=== PATIENT | female | born 1990 | race Hispanic/Latino ===

== ENCOUNTER 2018-04-20 00:32 | Emergency (ER) | payer SELFPAY ==
[2018-04-20 00:50] LABS: BILIRUBIN,URINE Negative (NEGATIVE); COLOR,URINE Yellow (YELLOW); GLUCOSE, URINE (UA) Negative (NEGATIVE); KETONES,URINE Trace mg/dL (NEGATIVE); LEUKOCYTE ESTERASE ,URINE Negative (NEGATIVE); NITRATE,URINE Negative (NEGATIVE); OCCULT BLOOD,URINE Negative (NEGATIVE); PH,URINE 5.5 (5.0-8.0); PROTEIN,URINE Negative (NEGATIVE)
[2018-04-20 00:51] LABS: HCG,QUAL RESULT NEGATIVE (NEGATIVE)
[2018-04-20 00:52] LABS: APPEARANCE,URINE CLEAR (CLEAR)
[2018-04-20 00:58] LABS: AMPHET/METH SCREEN,URINE NEGATIVE (NEGATIVE); BARBITURATE SCREEN, URINE NEGATIVE (NEGATIVE); BENZODIAZEPINES SCREEN,URINE NEGATIVE (NEGATIVE); CANNABINOID SCREEN,URINE NEGATIVE (NEGATIVE); COCAINE SCREEN,URINE POSITIVE (NEGATIVE); OPIATE SCREEN,URINE NEGATIVE (NEGATIVE); PHENCYCLIDINE SCREEN,URINE NEGATIVE (NEGATIVE)
[2018-04-20] MEDS ORDERED: CEFTRIAXONE SODIUM 2 GM VIAL ONE (01:41)
[2018-04-20] MEDS ORDERED: SODIUM CHLORIDE 0.9% 1000ML 1,000 ML IV ONE (01:41)
[2018-04-20] MEDS ORDERED: IBUPROFEN 800 MG TAB ONE (01:42)
[2018-04-20] MEDS ORDERED: ACETAMINOPHEN EXTRA STRENGTH 500 MG TABLET ONE (01:42)
[2018-04-20 01:49] LABS: BASOPHILS % (AUTO) 0.5 % (0.0-5.0); EOSINOPHILS % (AUTO) 1.2 % (0.0-8.0); LYMPHOCYTES % (AUTO) 27.3 % (21.0-51.0); MEAN CORPUSCULAR HEMOGLOBIN 30.2 pg (27.0-33.0); MEAN CORPUSCULAR HGB CONC 32.8 g/dL (32.0-36.0); MEAN CORPUSCULAR VOLUME 91.9 fL (79-99); MONOCYTES % (AUTO) 15.3 % (3.0-13.0); NEUTROPHILS % (AUTO) 55.7 % (40.0-77.0); NUCLEATED RED BLOOD CELLS 0.1 % (0.0-0.19); PLATELET COUNT (AUTO) 201 K/uL (130-400); RED CELL DISTRIBUTION WIDTH 14.5 % (11.0-15.5)
[2018-04-20 01:54] LABS: CARBON DIOXIDE 28 mmol/L (21-32); CHLORIDE 101 mmol/L (101-111); CREATININE 1.1 mg/dL (0.5-1.5); GLOMERULAR FILTR. RATE CALC 63 mL/min (>60); GLUCOSE,RANDOM 90 mg/dL (70-105); SODIUM SERUM 138 mmol/L (136-145); UREA NITROGEN, BLOOD 8 mg/dL (7-18)
[2018-04-20 02:00] LABS: RAPID GROUP A STREP NEGATIVE (NEGATIVE)
[2018-04-20 02:03] LABS: INR 0.93 (0.85-1.15); PARTIAL THROMBOPLASTIN TIME 22.4 SEC (26.3-35.5); PROTHROMBIN TIME 9.8 SEC (9.6-11.6)
[2018-04-20 02:09] LABS: ALANINE AMINOTRANSFERASE 288 U/L (12-78); ALBUMIN 3.4 g/dL (3.5-5.0); ASPARTATE AMINOTRANSFERASE 221 U/L (10-37); BILIRUBIN,TOTAL 0.2 mg/dL (0.2-1.0); CREATINE KINASE MB 0.8 ng/mL (0.5-3.6); CREATINE KINASE, TOTAL 145 U/L (21-232); MYOGLOBIN 41 ng/mL (10-92); TOTAL PROTEIN, SERUM 7.7 g/dL (6.0-8.3); TROPONIN I < 0.04 ng/mL (0.00-0.06)
== END 2018-04-20 02:44 | disposition home or self-care (01) ==
LOC: EDH 00:32
DX: A75.9 Typhus fever, unspecified (principal); F14.10 Cocaine abuse, uncomplicated; R79.1 Abnormal coagulation profile
CPT/HCPCS: 36415; 71045; 80053; 80305; 81003; 81025; 82550; 82553; 83605; 83874; 84484; 85025; 85610; 85730; 87040 ×2; 87088; 87804 ×2; 87880; 96374; 99285; J0696; J7030

== ENCOUNTER 2019-10-23 16:17 | Emergency (ER) | payer SELFPAY ==
[2019-10-23] MEDS ORDERED: FAMOTIDINE 20MG TAB 20 MG TAB ONE (17:05)
[2019-10-23] MEDS ORDERED: DEXAMETHASONE SOD PHOSPHATE 10MG/ML 1ML VIAL ONE (17:05)
[2019-10-23] MEDS ORDERED: DIPHENHYDRAMINE HCL 25 MG CAPSULE ONE (17:06)
== END 2019-10-23 17:27 | disposition home or self-care (01) ==
LOC: EDH 16:17
DX: L23.9 Allergic contact dermatitis, unspecified cause (principal); Z72.0 Tobacco use
CPT/HCPCS: 96372; 99283; J1100; Q0163

== ENCOUNTER 2021-11-04 20:20 | Emergency (ER) | payer OTHER ==
[~2021-11-04] VITALS: Ht 162.6 cm; Wt 95.3 kg
[2021-11-04 20:42] LABS: BASOPHILS % (AUTO) 0.2 % (0.0-5.0); EOSINOPHILS % (AUTO) 1.7 % (0.0-8.0); HEMATOCRIT 47.6 % (36-48); LYMPHOCYTES % (AUTO) 28.9 % (21.0-51.0); MEAN CORPUSCULAR HEMOGLOBIN 29.5 pg (27.0-33.0); MEAN CORPUSCULAR HGB CONC 32.4 g/dL (32.0-36.0); MEAN CORPUSCULAR VOLUME 91.2 fL (79-99); MONOCYTES % (AUTO) 7.7 % (3.0-13.0); NEUTROPHILS % (AUTO) 61.2 % (40.0-77.0); PLATELET COUNT (AUTO) 334 K/uL (130-400); RED BLOOD CELL COUNT(AUTO) 5.22 MIL/uL (4.00-5.50); RED CELL DISTRIBUTION WIDTH 13.7 % (11.0-15.5); WHITE BLOOD COUNT (AUTO) 13.2 K/uL (4.8-10.8)
[2021-11-04] MEDS ORDERED: ONDANSETRON 4MG INJ ONE (20:48)
[2021-11-04] MEDS ORDERED: FAMOTIDINE 20MG VIAL IV ONE ×2 (20:48→21:00)
[2021-11-04] MEDS ORDERED: DiphenhydrAMINE HCL 50 MG/ML VIAL ONE (20:48)
[2021-11-04] MEDS ORDERED: METOCLOPRAMIDE 10 MG/2 ML VIAL ONE (20:48)
[2021-11-04] MEDS ORDERED: PANTOPRAZOLE 40 MG/VIAL ONE (20:48)
[2021-11-04] MEDS ORDERED: 0.9%NACL 1000ML 1,000 ML IV ONE ×3 (20:49→22:00)
[2021-11-04] MEDS ORDERED: PANTOPRAZOLE 40 MG/VIAL IVP ONE (21:00)
[2021-11-04] MEDS ORDERED: METOCLOPRAMIDE 10 MG/2 ML VIAL IVP ONE (21:00)
[2021-11-04] MEDS ORDERED: ONDANSETRON 4MG INJ IVP ONE (21:00)
[2021-11-04] MEDS ORDERED: DiphenhydrAMINE HCL 50 MG/ML VIAL IV ONE ×2 (21:00→22:30)
[2021-11-04 21:05] LABS: ALBUMIN 3.9 g/dL (3.5-5.0); BILIRUBIN,TOTAL 0.3 mg/dL (0.2-1.0); CREATININE 0.9 mg/dL (0.5-1.5); TOTAL PROTEIN, SERUM 9.4 g/dL (6.0-8.3)
[2021-11-04 22:03] LABS: APPEARANCE,URINE Cloudy (CLEAR); BILIRUBIN,URINE Negative (NEGATIVE); COLOR,URINE Dark Yellow (YELLOW); GLUCOSE, URINE (UA) Negative (NEGATIVE); KETONES,URINE Trace mg/dL (NEGATIVE); LEUKOCYTE ESTERASE ,URINE Negative (NEGATIVE); NITRATE,URINE Negative (NEGATIVE); OCCULT BLOOD,URINE Negative (NEGATIVE); PH,URINE 5.5 (5.0-8.0); PROTEIN,URINE Trace mg/dL (NEGATIVE)
[2021-11-04 22:10] LABS: AMPHET/METH SCREEN,URINE NEGATIVE (NEGATIVE); BARBITURATE SCREEN, URINE NEGATIVE (NEGATIVE); BENZODIAZEPINES SCREEN,URINE NEGATIVE (NEGATIVE); CANNABINOID SCREEN,URINE POSITIVE (NEGATIVE); COCAINE SCREEN,URINE POSITIVE (NEGATIVE); OPIATE SCREEN,URINE NEGATIVE (NEGATIVE); PHENCYCLIDINE SCREEN,URINE NEGATIVE (NEGATIVE)
[2021-11-04 22:11] LABS: BACTERIA,URINE Few /HPF (None Seen); MUCUS,URINE Moderate LPF (None Seen); RBC,URINE 0-1 /HPF (0-1); SQUAMOUS EPITHELIAL CELL,UR Moderate /HPF (0-2)
[2021-11-04] MEDS ORDERED: ONDA4TAB10 PO (23:16)
[2021-11-04] MEDS ORDERED: METO-296 PO (23:16)
[2021-11-04] MEDS ORDERED: PANT40TA PO (23:16)
[2021-11-04] MEDS ORDERED: KETOROLAC 30MG VIAL (30MG/ML) IV ONE (23:30)
[2021-11-05 00:11] VITALS: BP 132/74
== END 2021-11-05 00:42 | disposition home or self-care (01) ==
LOC: EDH 20:20
DX: F43.9 Reaction to severe stress, unspecified (principal); E86.9 Volume depletion, unspecified; R10.13 Epigastric pain
CPT/HCPCS: 36415; 71045; 80053; 80305; 81001; 83690; 84484; 85025; 93005; 96361; 96374; 96375; 99285; C9113; J1200 ×2; J1885; J2405; J2765; J3490; J7030

== ENCOUNTER 2022-02-03 12:22 | Emergency (ER) | payer OTHER ==
[~2022-02-03] VITALS: Ht 162.6 cm; Wt 97.5 kg
[~2022-02-03 12:22] MED LIST: METO-296 PO; ONDA4TAB10 PO; PANT40TA PO
[2022-02-03 12:45] LABS: BASOPHILS % (AUTO) 0.3 % (0.0-5.0); EOSINOPHILS % (AUTO) 2.6 % (0.0-8.0); HEMATOCRIT 40.9 % (36-48); LYMPHOCYTES % (AUTO) 34.5 % (21.0-51.0); MEAN CORPUSCULAR HEMOGLOBIN 28.7 pg (27.0-33.0); MEAN CORPUSCULAR VOLUME 86.8 fL (79-99); MONOCYTES % (AUTO) 13.8 % (3.0-13.0); NEUTROPHILS % (AUTO) 48.5 % (40.0-77.0); PLATELET COUNT (AUTO) 294 K/uL (130-400); RED BLOOD CELL COUNT(AUTO) 4.71 MIL/uL (4.00-5.50); RED CELL DISTRIBUTION WIDTH 14.1 % (11.0-15.5); WHITE BLOOD COUNT (AUTO) 7.4 K/uL (4.8-10.8)
[2022-02-03 12:53] LABS: CREATININE 0.8 mg/dL (0.5-1.5); POTASSIUM 3.7 mmol/L (3.5-5.1)
[2022-02-03 12:58] LABS: ALBUMIN 3.5 g/dL (3.5-5.0); BILIRUBIN,TOTAL 0.3 mg/dL (0.2-1.0); TOTAL PROTEIN, SERUM 8.1 g/dL (6.0-8.3)
[2022-02-03] MEDS ORDERED: LORAZEPAM 2 MG/ML 1 ML VIAL IVP ONE (13:00)
[2022-02-03 13:44] LABS: APPEARANCE,URINE CLEAR (CLEAR); BILIRUBIN,URINE NEGATIVE (NEGATIVE); COLOR,URINE YELLOW (YELLOW); GLUCOSE, URINE (UA) NEGATIVE (NEGATIVE); KETONES,URINE NEGATIVE (NEGATIVE); LEUKOCYTE ESTERASE ,URINE NEGATIVE (NEGATIVE); NITRATE,URINE NEGATIVE (NEGATIVE); OCCULT BLOOD,URINE NEGATIVE (NEGATIVE); PROTEIN,URINE NEGATIVE (NEGATIVE); UROBILINOGEN,URINE 0.2 mg/dL (0.2-1.0)
[2022-02-03 13:45] LABS: HCG,QUAL RESULT NEGATIVE (NEGATIVE)
[2022-02-03 14:16] VITALS: BP 111/61
== END 2022-02-03 14:45 | disposition home or self-care (01) ==
LOC: EDH 12:22
DX: R07.89 Other chest pain (principal); F41.9 Anxiety disorder, unspecified; Z79.899 Other long term (current) drug therapy
CPT/HCPCS: 36415; 71045; 80053; 81003; 81025; 84484; 85025; 93005; 96374; 99284; J2060

== ENCOUNTER 2023-10-01 18:03 | Emergency (ER) | payer OTHER ==
[~2023-10-01] VITALS: Ht 162.6 cm; Wt 99.8 kg
[2023-10-01 18:25] VITALS: BP 156/101; PULSE 95; RESP 21
[2023-10-01 18:58] LABS: BASOPHILS # (AUTO) 0.04 K/uL (0.00-0.20); BASOPHILS % (AUTO) 0.4 % (0.0-5.0); EOSINOPHILS # (AUTO) 0.07 K/uL (0.00-0.70); EOSINOPHILS % (AUTO) 0.7 % (0.0-8.0); HEMATOCRIT 41.6 % (36-48); IMMATURE GRANULOCYTE ABSOLUTE 0.04 K/uL (0-1); LYMPHOCYTES # (AUTO) 1.5 K/uL (1.0-4.8); MEAN CORPUSCULAR HEMOGLOBIN 30.5 pg (27.0-33.0); MEAN CORPUSCULAR HGB CONC 33.9 g/dL (32.0-36.0); MONOCYTES # (AUTO) 0.9 K/uL (0.1-1.0); MONOCYTES % (AUTO) 8.9 % (3.0-13.0); NEUTROPHILS % (AUTO) 75.6 % (40.0-77.0); PLATELET COUNT (AUTO) 278 K/uL (130-400); RED BLOOD CELL COUNT(AUTO) 4.62 MIL/uL (4.00-5.50); RED CELL DISTRIBUTION WIDTH 13.6 % (11.0-15.5); WHITE BLOOD COUNT (AUTO) 10.5 K/uL (4.8-10.8)
[2023-10-01 19:11] LABS: CREATININE 0.9 mg/dL (0.5-1.5); POTASSIUM 3.7 mmol/L (3.5-5.1)
[2023-10-01 19:18] LABS: ALBUMIN 3.4 g/dL (3.5-5.0); BILIRUBIN,TOTAL 0.3 mg/dL (0.2-1.0); TOTAL PROTEIN, SERUM 8.5 g/dL (6.0-8.3)
[2023-10-01 19:21] LABS: B-TYPE NATRIURETIC PEPTIDE 7 pg/mL (0-100)
[2023-10-01 19:40] LABS: INR 0.94 (0.85-1.15); PROTHROMBIN TIME 10.9 SEC (9.6-11.6)
[2023-10-01 23:38] LABS: APPEARANCE,URINE CLEAR (CLEAR); BILIRUBIN,URINE NEGATIVE (NEGATIVE); COLOR,URINE LIGHT-YELLOW (YELLOW); GLUCOSE, URINE (UA) NEGATIVE (NEGATIVE); KETONES,URINE NEGATIVE (NEGATIVE); LEUKOCYTE ESTERASE ,URINE NEGATIVE Leu/uL (NEGATIVE); NITRATE,URINE NEGATIVE (NEGATIVE); OCCULT BLOOD,URINE NEGATIVE (NEGATIVE); PH,URINE 6.5 (5.0-8.0); PROTEIN,URINE 20 mg/dL (NEGATIVE); UROBILINOGEN,URINE 0.2 mg/dL (0.2-1.0)
[2023-10-01 23:48] LABS: HCG,QUALITATIVE URINE NEGATIVE (NEGATIVE)
[2023-10-01 23:49] LABS: ADD UA MICROSCOPIC YES
[2023-10-01 23:51] LABS: MUCUS,URINE FEW LPF (None Seen); RBC,URINE 0-1 /HPF (0-1); SQUAMOUS EPITHELIAL CELL,UR FEW /HPF (0-2)
== END 2023-10-02 00:07 | disposition home or self-care (01) ==
LOC: EDH 18:03
DX: M62.838 Other muscle spasm (principal); F41.9 Anxiety disorder, unspecified; R07.89 Other chest pain; Z79.899 Other long term (current) drug therapy
CPT/HCPCS: 36415; 71045; 80053; 81001; 81025; 83880; 84484; 85025; 85610; 93005

== ENCOUNTER 2025-06-15 17:34 | Inpatient (IN) | payer BC ==
[~2025-06-15] VITALS: Ht 152.4 cm; Wt 119.3 kg
[2025-06-15] VITALS (10 sets, daily range): BP systolic 99–115; BP diastolic 65–87; PULSE 76–145; RESP 25–27; TEMP 99.2; O2SAT 93–100
[~2025-06-15 17:34] MED LIST changes: +ONDA-243 PO; -ONDA4TAB10 PO
[2025-06-15] MEDS: MIDAZOLAM 50MG-0.9% NS 50ML 50 ML IV ONE (17:46)
[2025-06-15] MEDS: 0.9%NACL 1000ML 1,000 ML IV ONE (18:00)
[2025-06-15 18:08] LABS: INR 0.99 (0.85-1.15)
--- NOTE | 2025-06-15 18:08 | EKG ---
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1990 Requested By: BETHANY LIAO Order Number: [id number] Reading MD: Caroline Guzman Measurements Intervals [place] Rate: 154 P: 166 [place]: 60 QRS: -76 QRSD: 131 T: 41 QT: 331 QTc: 529 Interpretive Statements Sinus or ectopic atrial tachycardia RBBB and LAFB ST elevation suggests acute pericarditis Compared to ECG 10/01/2023 18:50:17 Left anterior fascicular block now present Right bundle-branch block now present ST (T wave) deviation now present Sinus rhythm no longer present Electronically Signed On 06-16-2025 12:29:03 MIRROR SPECIALIST by Caroline Guzman Please click the below link to view image of tracing.
[2025-06-15 18:19] LABS: CREATINE KINASE, TOTAL 308.0 U/L (21-232); CREATININE 1.3 mg/dL (0.5-1.0); GLOMERULAR FILTR. RATE CALC 55.0 mL/min (>90); GLUCOSE,RANDOM 229.0 mg/dL (70-105); LDL DIRECT 90.0 mg/dL (0-99); SODIUM SERUM 141.0 mmol/L (136-145); UREA NITROGEN, BLOOD 6.0 mg/dL (7-18)
[2025-06-15 18:22] LABS: APPEARANCE,URINE CLEAR (CLEAR); GLUCOSE, URINE (UA) NEGATIVE (NEGATIVE); LEUKOCYTE ESTERASE ,URINE NEGATIVE Leu/uL (NEGATIVE); NITRATE,URINE NEGATIVE (NEGATIVE); OCCULT BLOOD,URINE NEGATIVE (NEGATIVE)
[2025-06-15 18:30] LABS: ADD UA MICROSCOPIC NO
--- NOTE | 2025-06-15 18:32 | ERN ---
General Chief Complaint: Overdose Stated Complaint: OVERDOSE Time Seen by MD: 17:46 Source: patient History of Present Illness Initial Comments PATIENT IS A 34-YEAR-OLD FEMALE BROUGHT IN BY NEIGHBORS DUE TO ALTERED MENTAL STATUS. PER NEIGHBOR'S PATIENT STARTED ACTING BIZARRE STARTED RUNNING AROUND THE NEIGHBORHOOD AND WAS BROUGHT IN FOR FURTHER EVALUATION. UPON EVALUATION IN VEHICLE PATIENT WAS UNABLE TO RESPOND TO QUESTIONS WAS COMBATIVE. Allergies: Coded Allergies: No Known Drug Allergies (Unverified Allergy, Unknown, 10/23/19) Home Meds Active Scripts Metoclopramide HCl (Reglan) 10 Mg Tablet, 10 MG PO TIDP, #20 TAB 0 Refills Prov:JADON ALLEN MD 11/04/21 Ondansetron (Ondansetron Odt) 4 Mg Tab.rapdis, 4 MG PO Q6HPRN, #20 TAB 0 Refills Prov:JADON ALLEN MD 11/04/21 Pantoprazole Sodium (Protonix) 40 Mg Tablet.dr, 40 MG PO DAILY, #10 TAB 0 Refills Prov:JADON ALLEN MD 11/04/21 Past Medical History Past Medical History: Diabetes-Type II Past Surgical History: Unknown Social History Social History: Drugs, ETOH, Lives with family ROS Dictation UNABLE TO BE PERFORMED DUE TO PATIENT'S CURRENT STATE Physical Exam Physical Exam Dictation VITAL SIGNS: REVIEWED. GENERAL APPEARANCE: DISORIENTED, ACUTE DISTRESS, OBESE. HEAD AND FACE: NON-TRAUMATIC. EYES: PERRL, PINK CONJUNCTIVAS, EYELID NO TRAUMA, ANTERIOR CHAMBER CLEAR. EARS: PUPILS DILATED NONREACTIVE NOSE: NO DISCHARGE, NO BLEEDING. OROPHARYNX: MOUTH NORMAL, TEETH NO CARIES, TONGUE PINK. PHARYNX CLEAR, NO ERYTHEMA. TONSILS NO EXUDATES, NO ABSCESSES NOTED. MUCOUS MEMBRANE MOIST. NECK: SUPPLE, NON-TENDER, NO THYROMEGALY, NO MASSES, NO JVD, NO BRUITS. BREAST: DEFERRED. CHEST: NO TENDERNESS, NO CREPITUS, NO PARADOXICAL MOVEMENT, NO RETRACTIONS. LUNGS: CLEAR, WELL-VENTILATED, SYMMETRIC, NO RALES, NO WHEEZING, NO RHONCHI, NO STRIDOR, GOOD BREATH SOUNDS BILATERALLY. HEART: REGULAR RATE, REGULAR RHYTHM, NO MURMUR, NO GALLOPS. VASCULAR: NO PERIPHERAL EDEMA. ABDOMEN: SOFT, POSITIVE BOWEL SOUNDS, NONDISTENDED, NO GUARDING, NONTENDER, NO REBOUND, NO MASSES NO HEPATOMEGALY, NO SPLENOMEGALY, NO DURAN'S SIGN, NO HERNIAS. RECTAL: DEFERRED. GENITAL: DEFERRED. NEUROLOGICAL: GCS OF SEVEN MUSCULOSKELETAL: NECK NONTENDER, FULL RANGE OF MOTION, BACK NONTENDER, FULL RANGE OF MOTION. EXTREMITIES: NONTENDER, FULL RANGE OF MOTION. SKIN: COLOR PINK, DRY, NO TURGOR, NO RASH, NO LACERATIONS, NO ABRASIONS, NO CONTUSIONS. LYMPHATICS: DEFERRED. Results Laboratory and Microbiology Lab and Micro Result Laboratory Tests Test 06/15/25 17:49 06/15/25 18:14 White Blood Count 16.2 K/uL (4.8-10.8) H Red Blood Count 5.16 MIL/uL (4.00-5.50) Hemoglobin 15.4 g/dL (12.0-16.0) Hematocrit 49.8 % (36-48) H Mean Corpuscular Volume 96.5 fL (79-99) Mean Corpuscular Hemoglobin 29.8 pg (27.0-33.0) Mean Corpuscular Hemoglobin Concent 30.9 g/dL (32.0-36.0) L Red Cell Distribution Width 14.3 % (11.0-15.5) Platelet Count 412 K/uL (130-400) H Mean Platelet Volume 10.3 fL (7.5-10.5) Immature Granulocyte % (Auto) 5.1 % (0-1) H Neutrophils (%) (Auto) 37.8 % (40.0-77.0) L Lymphocytes (%) (Auto) 51.1 % (21.0-51.0) H Monocytes (%) (Auto) 4.7 % (3.0-13.0) Eosinophils (%) (Auto) 0.8 % (0.0-8.0) Basophils (%) (Auto) 0.5 % (0.0-5.0) Neutrophils # (Auto) 6.1 K/uL (1.8-7.7) Lymphocytes # (Auto) 8.3 K/uL (1.0-4.8) H Monocytes # (Auto) 0.8 K/uL (0.1-1.0) Eosinophils # (Auto) 0.13 K/uL (0.00-0.70) Basophils # (Auto) 0.08 K/uL (0.00-0.20) Absolute Immature Granulocyte (auto 0.82 K/uL (0-1) Nucleated Red Blood Cells 0.1 % (0.0-0.19) Prothrombin Time 10.5 SEC (9.6-11.6) Prothromb Time International Ratio 0.99 (0.85-1.15) Activated Partial Thromboplast Time 21.8 SEC (26.3-35.5) L Sodium Level 141 mmol/L (136-145) Potassium Level 5.1 mmol/L (3.5-5.1) Chloride Level 100 mmol/L (101-111) L Carbon Dioxide Level 11 mmol/L (21-32) L Blood Urea Nitrogen 6 mg/dL (7-18) L Creatinine 1.3 mg/dL (0.5-1.0) H Glomerular Filtration Rate Calc 55 mL/min (>90) Random Glucose 229 mg/dL (70-105) H Total Calcium 9.3 mg/dL (8.5-10.1) Magnesium Level 2.40 mg/dL (1.80-2.40) Total Creatine Kinase 308 U/L (21-232) #H Troponin I High Sensitivity 50 ng/L (4-50) Triglycerides Level 232 mg/dL (30-200) H Cholesterol Level 169 mg/dL (<200) LDL Cholesterol 90 mg/dL (0-99) HDL Cholesterol 48 mg/dL (35-85) Urine Color LIGHT-YELLOW (YELLOW) Urine Appearance CLEAR (CLEAR) Urine pH 6.0 (5.0-8.0) Urine Specific [place] 1.012 (1.001-1.031) Urine Protein NEGATIVE mg/dL (NEGATIVE) Urine Glucose (UA) NEGATIVE mg/dL (NEGATIVE) Urine Ketones NEGATIVE mg/dL (NEGATIVE) Urine Occult Blood NEGATIVE (NEGATIVE) Urine Nitrate NEGATIVE (NEGATIVE) Urine Bilirubin NEGATIVE mg/dL (NEGATIVE) Urine Urobilinogen 0.2 mg/dL (0.2-1.0) Urine Leukocyte Esterase NEGATIVE Francia/uL Urine Opiates Screen NEGATIVE (NEGATIVE) Urine Barbiturates Screen NEGATIVE (NEGATIVE) Urine Phencyclidine Screen NEGATIVE (NEGATIVE) Urine Amphetamines Screen NEGATIVE (NEGATIVE) Urine Benzodiazepines Screen NEGATIVE (NEGATIVE) Urine Cocaine Screen POSITIVE (NEGATIVE) H Urine Marijuana (THC) Screen NEGATIVE (NEGATIVE) Labs Reviewed?: Yes EKG/XRAY/US/CT/MRI EKG Comment 02/12/2025 TIME 6:01 P.M. VENTRICULAR RATE [address] WAVE ELEVATION MDM MDM: DIFFERENTIAL DIAGNOSIS: ALTERED MENTAL STATUS RATIONALE: TESTS CONSIDERED AND ORDERED SECONDARY TO SHARED DECISION MAKING INCLUDE: PREVIOUS OUTSIDE RECORDS REVIEWED: OLD ER VISITS. RISK OF COMPLICATION AND/OR MORBIDITY OR MORTALITY OF PATIENT MANAGEMENT: NONE MEDICATIONS-PER MEDICATION RECONCILIATION NEED FOR HOSPITALIZATION: PATIENT DOES NOT MEET CRITERIA FOR HOSPITALIZATION. NEED FOR EMERGENCY MAJOR/MINOR SURGERY: NO THERE ARE NO SOCIAL CONCERNS WITH THIS PATIENT. PRESCRIPTION DRUG MANAGEMENT PRESCRIPTIONS WILL INCLUDE SYMPTOMATIC CARE PATIENT'S PRIOR EXTERNAL MEDICAL RECORDS FROM OTHER ER VISITS WERE REVIEWED BY ME INDICATED. PRIOR TESTING AND RESULTS FROM PREVIOUS VISITS WERE REVIEWED. PRIOR TESTS WERE TAKEN INTO ACCOUNT WITH MEDICAL DECISION MAKING AND RESOURCE UTILIZATION, INDEPENDENT HISTORIAN/HISTORIANS WERE USED TO OBTAIN COMPLETE MEDICAL HISTORY. I INDEPENDENTLY INTERPRETED THE TEST THAT WERE PERFORMED, RESULTS WERE REVIEWED BY ME AND CONSIDERED FINDINGS ON RADIOLOGY IF ORDERED. MEDICAL MANAGEMENT AND EXAMINATION INTERPRETATION DISCUSSIONS WERE HAD BY ME WITH OTHER QUALIFIED HEALTHCARE PROFESSIONALS INDICATED FOR THE PATIENT'S CARE. ED Course Orders Procedure Category Date Status Time Chest 1vw RAD 06/15/25 Resulted 17:42 Midazolam 50mg-0.9% PHA 06/15/25 Complete Ns 50ml (Midazolam 5 17:46 Prothrombin Time With LAB 06/15/25 Complete INR 17:46 Lipid Panel LAB 06/15/25 Complete 17:46 12 Lead Ekg Tracing- EKG 06/15/25 Complete Technical 17:46 0.9%Nacl 1000ml (Ns PHA 06/15/25 Complete 1000ml) 18:00 Magnesium LAB 06/15/25 Complete 17:46 Creatine Kinase, Total LAB 06/15/25 Complete 17:46 Troponin I High LAB 06/15/25 Complete Sensitivity 17:46 Urinalysis Profile LAB 06/15/25 Complete 17:46 Partial LAB 06/15/25 Complete Thromboplastin Time 17:46 Basic Metabolic Panel LAB 06/15/25 Complete 17:46 Ct Head/Brain W/O CT 06/15/25 Resulted Contrast 17:46 Ketamine 50mg/Ml PHA 06/15/25 Complete Syringe (Ketamine 18:00 Midazolam 50mg-0.9% PHA 06/15/25 In Process Ns 50ml (Midazolam 5 18:00 Fentanyl 1000mcg+Ns PHA 06/15/25 In Process 100ml (Fentanyl 1000 18:00 Cbc With Differential LAB 06/15/25 In Process 17:49 Propofol 1000 Mg/100 PHA 06/15/25 Complete Ml (Diprivan 1000mg 18:23 Drug Screen Urine LAB 06/15/25 Complete 18:34 Norepinephrin 4mg/Ns PHA 06/15/25 Complete 250ml (Levophed 4mg 18:41 Nurse Driven Juarez TEVIN 06/15/25 In Process Removal Pro 18:49 Ngt To Low CPOE 06/15/25 Transmitted Intermittent Suctn 18:49 Norepinephrin 4mg/Ns PHA 06/15/25 In Process 250ml (Levophed 4mg 19:00 Propofol 1000 Mg/100 PHA 06/15/25 In Process Ml (Diprivan 1000mg 19:00 Pathology Request LAB 06/15/25 In Process Tissue 19:09 Admit Orders ADM 06/15/25 Transmitted 19:44 Current Medications Medications (Trade) Dose Ordered Sig/Sandra Route PRN Reason Start Time Stop Time Status Last Admin Dose Admin Fentanyl Citrate 100 ml @ 0 mls/hr PROTOCOL IV 06/15/25 18:00 06/22/25 17:59 Ketamine HCl (ketaMINE 50MG/ ML SYRINGE) 100 mg ONCE ONCE IM 06/15/25 18:00 06/15/25 18:01 DC Midazolam HCl 50 ml @ 0 mls/hr PROTOCOL IV 06/15/25 18:00 06/22/25 17:59 Midazolam HCl 50 ml @ As Directed STK-MED ONCE IV 06/15/25 17:46 06/15/25 17:46 DC Norepinephrine 250 ml @ As Directed STK-MED ONCE IV 06/15/25 18:41 06/15/25 18:41 DC Norepinephrine 250 ml @ 0 mls/hr PROTOCOL IV 06/15/25 19:00 07/15/25 18:59 Propofol 100 ml @ As Directed STK-MED ONCE IV 06/15/25 18:23 06/15/25 18:23 DC Propofol 100 ml @ 0 mls/hr PROTOCOL IV 06/15/25 19:00 07/15/25 18:59 Sodium Chloride 1,000 ml @ 0 mls/hr ONCE ONCE IV 06/15/25 18:00 06/15/25 18:01 DC Vital Signs Date Time Temp Pulse Resp B/P (MAP) Pulse Ox O2 Delivery O2 Flow Rate FiO2 06/15/25 17:48 76 100 Procedure Dictation THE PROCEDURE WAS EMERGENT, THE PATIENT WAS UNABLE TO PROVIDE CONSENT, AND A DESIGNEE WAS NOT IMMEDIATELY AVAILABLE. PROCEDURE SUMMARY: A TIME OUT WAS PERFORMED. MY HANDS WERE WASHED IMMEDIATELY PRIOR TO THE PROCEDURE. I WORE A SURGICAL CAP, MASK WITH PROTECTIVE EYEWEAR, GOWN AND GLOVES THROUGHOUT THE PROCEDURE. THE PATIENT WAS PLACED ON A M48 M60 ARMOR CREWMAN INCLUDING CONTINUOUS PULSE OXIMETRY. RAPID SEQUENCE INTUBATION WAS CONDUCTED. THE PATIENT RECEIVED 100 MG OF KETAMINE FOR INDUCTION AND 50 MG OF ALAN FOR ADEQUATE PARALYSIS. CRICOID PRESSURE WAS MAINTAINED FROM TIME INDUCTION AGENT WAS GIVEN TO TIME OF CUFF BALLOON INFLATION. USING A GLIDESCOPE AND A SIZE [7.5 ] ENDOTRACHEAL TUBE WITH STYLET, THE PATIENT WAS INTUBATED ON THE 1 ATTEMPT. THE STYLET WAS REMOVED AND CUFF BALLOON WAS INFLATED. APPROPRIATE ENDOTRACHEAL TUBE POSITION WAS CONFIRMED BY DIRECT VISUALIZATION OF VOCAL CORD PASSAGE, FOGGING OF THE TUBE, CO2 COLORMETRIC INDICATOR AND SYMMETRIC BREATH SOUNDS. THE TUBE WAS SECURED AT [23 ] CM AT THE LIPS. POST INTUBATION CHEST X-RAY IS PENDING AT THIS TIME. DX & DISP Disposition: Inpatient Departure Impression: Primary Impression: Endotracheally intubated Additional Impression: Altered mental status Condition: Stable Referrals: SELF,REFERRAL (PCP) BETHANY LIAO MD Jun 15, 2025 18:31 JULIÁN MCKEON MD Jun 15, 2025 19:53
[2025-06-15 18:40] LABS: IMMATURE GRANULOCYTE ABSOLUTE 0.82 K/uL (0-1); NUCLEATED RED BLOOD CELLS 0.1 % (0.0-0.19); PLATELET COUNT (AUTO) 412 K/uL (130-400); RED BLOOD CELL COUNT(AUTO) 5.16 MIL/uL (4.00-5.50); RED CELL DISTRIBUTION WIDTH 14.3 % (11.0-15.5); WHITE BLOOD COUNT (AUTO) 16.2 K/uL (4.8-10.8)
[2025-06-15] MEDS: NOREPINEPHRIN 4MG/NS 250ML 250 ML IV ONE (18:41)
[2025-06-15 18:49] LABS: AMPHET/METH SCREEN,URINE NEGATIVE (NEGATIVE); BARBITURATE SCREEN, URINE NEGATIVE (NEGATIVE); CANNABINOID SCREEN,URINE NEGATIVE (NEGATIVE); COCAINE SCREEN,URINE POSITIVE (NEGATIVE)
--- NOTE | 2025-06-15 19:07 | HMCIMG ---
EXAM: CR Chest, 2 View. CLINICAL HISTORY: INTUBATION COMPARISON: None provided. FINDINGS: Endotracheal tube terminates 1.4 cm above the kay and may be retracted by 1.0 cm. Enteric tube terminates within the stomach. Multifocal airspace disease throughout the left lung may reflect an infectious and/or inflammatory process. Small left effusion. No pneumothorax. Mild cardiomegaly and mild central pulmonary vascular congestion. IMPRESSION: 1. Endotracheal tube tip 1.4 cm above kay, consider retracting 1.0 cm. 2. Multifocal left lung airspace disease, possibly infectious or inflammatory. 3. Small left pleural effusion. 4. Mild cardiomegaly with mild central pulmonary vascular congestion. /[place]
--- NOTE | 2025-06-15 19:30 | NUR ---
PATIENT TAKEN TO CT BY ED RN, ENDOSCOPIC TECHNICIAN, RT.
--- NOTE | 2025-06-15 19:43 | NUR ---
RETURNED FROM CT.
--- NOTE | 2025-06-15 19:46 | HP ---
History of Present Illness Reason for Visit: Altered mental status History of Present Illness Ms. Bridges is a 34-year-old female that was seen and examined today on 06/15/2025. Patient is unable to provide any medical history. Patient's mother, Jill Dyson is at bedside and able to provide past medical history however she is not aware of the current events what led to patient's altered mental status today. According to emergency room physician note: PATIENT IS A 34-YEAR-OLD FEMALE BROUGHT IN BY NEIGHBORS DUE TO ALTERED MENTAL STATUS. PER NEIGHBOR'S PATIENT STARTED ACTING BIZARRE STARTED RUNNING AROUND THE NEIGHBORHOOD AND WAS BROUGHT IN FOR FURTHER EVALUATION. UPON EVALUATION IN VEHICLE PATIENT WAS UNABLE TO RESPOND TO QUESTIONS WAS COMBATI Today in the emergency department WBCs 16.2, glucose 229 mg/dL, creatinine 1.3, urinalysis unremarkable, urine toxicology positive for cocaine, chest x-ray shows left lung airway disease, left pleural effusion, CT of the head is unremarkable. Additionally patient presented with a temperature of 102.2, heart rate 145, respirations 25, now identified source of infection being the lungs patient met clinical sepsis criteria. Patient also had hypotension requiring vasopressor support with Levophed therefore meeting septic shock criteria. Past Medical History ADDITIONAL PAST MEDICAL HISTORY: [Diabetes mellitius type2, hypertension] SOCIAL HISTORY: [Patient does smoke cigarettes but mother does not know how much, patient does drink alcohol at least every weekend, patient at least consumes marijuana and possibly other drugs. Patient is typically independent of all her ADLs. Patient lives with the [facility] Cav[facility]os. ] SURGICAL HISTORY: [Negative surgeries] Review of Systems General: No Fever, No Chills, No Night Sweats, No Fatigue, No Malaise, No Appetite, No Other HEENT: No Head Aches, No Visual Changes, No Eye Pain, No Ear Pain, No Dysphasia, No Sinus Congestion, No Post Nasal Drip, No Sore Throat, No Other Pulmonary: No Dyspnea, No Cough, No Pleuritic Chest Pain, No Other Cardiovascular: No: Chest Pain, Palpitations, Orthopnea, Paroxysmal Noc. Dyspnea, Edema, Lt Headedness, Other Gastrointestinal: No: Nausea, Vomiting, Abdominal Pain, Diarrhea, Constipation, Melena, Hematochezia, Other Genitourinary: No Dysuria, No Frequency, No Incontinence, No Hematuria, No Retention, No Other Musculoskeletal: No: other, neck pain, shoulder pain, arm pain, back pain, hand pain, leg pain, foot pain Skin: No Urticaria, No Rash, No Other Neurological: Confusion; No: Weakness, Numbness, Incoordination, Change in s peech, Seizures, Other Allergies: Coded Allergies: No Known Drug Allergies (Unverified Allergy, Unknown, 10/23/19) Scheduled Metoclopramide HCl (Reglan), 10 MG PO TIDP Ondansetron (Ondansetron Odt), 4 MG PO Q6HPRN Pantoprazole Sodium (Protonix), 40 MG PO DAILY Exam Vital Signs Vital Signs Date Time Temp Pulse Resp B/P (MAP) Pulse Ox O2 Delivery O2 Flow Rate FiO2 06/15/25 17:48 76 100 General Appearance: Alert (x1), severe distress HEENT: Atraumatic, PERRLA, EOMI, Other (ETT, OGT in place) Respiratory: Other (Left lower lobe rhonchi, patient mechanically ventilated) Cardiovascular: Regular rate, Regular rhythm, Other (Tachycardia) Abdominal: Normal bowel sounds, Soft, No tenderness Extremities: No edema Skin: No significant lesion Neuro: Other (Unable to assess) Psych/Mental Status: Other (Unable to assess) Assessment/Plan ASSESSMENT: [ Septic shock, POA Pneumonia, POA Leukocytosis, POA Metabolic encephalopathy, POA Uncontrolled Diabetes mellitius type2, POA Acute kidney injury, POA, on 10/01/2023 creatinine 0.9, today it is 1.3 Left pleural effusion Hypertension PLAN: [ Admit patient to intensive care unit as inpatient status. Place patient on telemetry monitoring. Patient will be followed by critical care service. Continue mechanical ventilation per emergency room monitors and critical Care to manage ventilator and sedation Continue Levophed per emergency room orders Further vasopressor support recommendations from critical care service Fluid resuscitation with lactated Ringer's 30 mL/kg. Empiric antibiotic therapy with Zosyn. Check procalcitonin, follow up with the results. Check lactic acid, follow up with the results. Check blood culture, follow up with the results Check sputum culture, follow up with the results Reviewed patient's urinalysis which is unremarkable DuoNebs every 6 hours Supportive measures with Tylenol, guaifenesin Place patient on bed rest Check ammonia level, follow up with the results Check glucometer every 6 hours Check hemoglobin A1c in a.m. Humulin R sliding scale Consider starting 1800 ADA diet once patient is no longer intubated able to tole rate p.o. IV fluid maintenance therapy lactated Ringer's at 75 mL/HR Calculate FENA Check urine sodium, creatinine, osmolality Avoid nephrotoxic agents when possible Renally dose all medications when possible Consider consulting Nephrology service if any worsening renal function or evidence of ATN. Monitor patient's labs. Weight patient daily. Monitor intake and output. Ultrasound of the chest, follow up with the results Hold blood pressure medications at this time since patient is hypotensive GI prophylaxis, Protonix DVT prophylaxis, heparin ADVANCED CARE PLANNING 1. Which of the following were discussed? Hospice Care - Yes Therapeutic options - yes Advance Directives - Yes - patient does not have any advance directives in place at this time however she is to [facility] according to her mother who could presumably make decisions for her if patient is unable Other discussions - mother wishes for patient to remain a full code at this time as is not present 2. Discussed with who? mother, Jill Dyson 3. Voluntary nature of this service was explained to the patient? Yes 4. Amount of time spent - ___16 minutes____ 5. Reviewed by Physician? (if this service was performed by NPP) Yes This document was generated in part using voice recognition software, occasional wrong word or sound alike substitutions may have occurred due to the inherent limitations of voice recognition software. Read the chart carefully and recognize using context, where the substitutions have occurred. Although every effort was made to edit the content, slip maker and typing errors may occur ATTESTATION BY PHYSICIAN I have seen and examined the patient. I reviewed the documentation, medical decision making, and treatment plan as noted by the mid-level provider above. I agree with the findings and plan of care. ] DENIS ERNST [facility] Jun 15, 2025 19:45
--- NOTE | 2025-06-15 19:51 | HMCIMG ---
EXAM: CT Head Without IV contrast. CLINICAL HISTORY: ams TECHNIQUE: Axial computed tomography images of the head/brain without intravenous contrast. COMPARISON: None provided. FINDINGS: BRAIN: No evidence of acute hemorrhage. No mass lesion. No CT evidence for acute territorial infarct. No midline shift or extra-axial collections. VENTRICLES: No hydrocephalus. ORBITS: The orbits are unremarkable. SINUSES AND MASTOIDS: The paranasal sinuses and mastoid air cells are clear. BONES: No fracture. SOFT TISSUES: Unremarkable. IMPRESSION: No acute intracranial abnormality. /[place]
--- NOTE | 2025-06-15 20:10 | NUR ---
INTUBATION TIMEKEEPIN - PATIENT ARRIVES VIA FAMILY POV AND IS TRANSPORTED TO [facility] VIA BACKBOARD EN ROUTE TO ER07. 1733 - PATIENT IS DISORIENTED, AGITATED, DOES NOT UNDERSTAND OR FOLLOW COMMAND, AND A DANGER TO HERSELF. ER MD HAS DECIDED TO INTUBATE PATIENT. 1735 - 100 KETAMINE ADMINISTERED. 1737 - 50 ROCURONIUM ADMINISTERED. 1740 - ET TUBE PLACED 25 AT LIP BY ED RN. VENTILATOR SETTINGS AC R20 500 T5 100%. SEDATION USING FENTANYL AND MIDAZOLAM. 174 - AFTER XRAY CONFIRMATION, ET TUBE MOVED TO 22 AT THE LIP. Addendum: 06/15/25 at 2029 by [email or web address] INTUBATION TIMEKEEPIN - PATIENT ARRIVES VIA FAMILY POV AND IS TRANSPORTED TO [facility] VIA BACKBOARD EN ROUTE TO ER07. 1733 - PATIENT IS DISORIENTED, AGITATED, DOES NOT UNDERSTAND OR FOLLOW COMMAND, AND A DANGER TO HERSELF. ER MD HAS DECIDED TO INTUBATE PATIENT. 173 - 100 KETAMINE ADMINISTERED. 1737 - 50 ROCURONIUM ADMINISTERED. 1740 - ET TUBE PLACED 25 AT LIP BY ED MD. VENTILATOR SETTINGS AC R20 500 T5 100%. SEDATION USING FENTANYL AND MIDAZOLAM. 1745 - AFTER XRAY CONFIRMATION, ET TUBE MOVED TO 22 AT THE LIP.
--- NOTE | 2025-06-15 21:31 | NUR ---
GAVE REPORT TO EVY LAWTON.
[2025-06-15] MEDS: LACTATED RINGERS 1000ML 1,000 ML IV SCH (22:00)
[2025-06-15] MEDS ORDERED: MAGNESIUM 2GM PREMIX 50ML 50 ML IV PRN (22:00)
--- NOTE | 2025-06-15 22:20 | NUR ---
patient arrived via ER, report recieved from nicolette LAWTON, patient is intubated 22@lip, received patient on fentanyl @85mcg, versed @10mg, and levophed at 0.1mcg, patient temp on arrival 99.2 and blood glucose of 88 abrasions to knees, and left foot patient is diaphoretic on arrival arrived with collins all questions answered, vitals as charted, thank you.
[2025-06-15] MEDS: NOREPINEPHRIN 4MG/NS 250ML 250 ML IV SCH (23:29)
[2025-06-15] MEDS: MIDAZOLAM 50MG-0.9% NS 50ML 50 ML IV SCH (23:30)
[2025-06-16] VITALS (116 sets, daily range): BP systolic 76–128; BP diastolic 31–103; PULSE 107–125; RESP 11–51; TEMP 98.9–102.4; O2SAT 96–99
[2025-06-16] MEDS: ZOSYN 3.375GM +NS 50ML IV SCH (00:05)
[2025-06-16] MEDS: LACTATED RINGERS 1000ML 1,365 ML IV ONE (00:05)
--- NOTE | 2025-06-16 00:30 | NUR ---
spoke with pillo herbertog ccnp about patient status, as per pillo ccnp to order arterial blood gas at 0400 he is also aware of patient lactic acid level at 3.4 critical care was paged for lactic acid level at 2315, however, they never paged back, had to call again at 0020 and then finally got a call back from them. thank you.
[2025-06-16] MEDS: DEXTROSE 50%-WATER 50 ML DISP.SYRIN IV ONE ×3 (01:34→18:41)
[2025-06-16 04:00] LABS: ABG BASE EXCESS -12.9 mmol/L (-2.0-3.0); ABG HCO3 13.1 mmol/L (21.0-28.0); ABG OXYGEN SATURATION 99.1 % (94.0-98.0); ABG PCO2 31 mmHg (32-45); ABG PH 7.242 (7.350-7.450); DEVICE COMMENT RR RN; PO2, ARTERIAL BG 191.8 mmHg (83.0-108.0); TEMPERATURE, CELSIUS BG 37.0 CELSIUS (35.5-37.0); VENT MODE, BG AC (ROOM AIR)
[2025-06-16 04:12] LABS: IMMATURE GRANULOCYTE ABSOLUTE 1.01 K/uL (0-1); PLATELET COUNT (AUTO) 145 K/uL (130-400); RED BLOOD CELL COUNT(AUTO) 5.15 MIL/uL (4.00-5.50); RED CELL DISTRIBUTION WIDTH 15.3 % (11.0-15.5)
[2025-06-16 04:21] LABS: CREATININE 3.5 mg/dL (0.5-1.0); GLOMERULAR FILTR. RATE CALC 17.0 mL/min (>90); PHOSPHORUS 1.5 mg/dL (2.5-4.9); SODIUM SERUM 145.0 mmol/L (136-145); UREA NITROGEN, BLOOD 15.0 mg/dL (7-18)
[2025-06-16 04:23] LABS: GLUCOSE,RANDOM 42.0 mg/dL (70-105)
[2025-06-16 04:25] LABS: WHITE BLOOD COUNT (AUTO) 30.2 K/uL (4.8-10.8)
--- NOTE | 2025-06-16 04:27 | NUR ---
spoke with taha nonog forming acid dumper about recent ABG taken at 0400, as per taha nonog forming acid dumper to add d5 water with 150 meq of sodium bicarb notified taha on updated critical results as well.
[2025-06-16] MEDS ORDERED: LACTATED RINGERS 1000ML IV SCH (04:30)
[2025-06-16] MEDS: SODIUM BICARB IV SCH (05:03)
[2025-06-16] MEDS: WATER IV SCH (05:03)
[2025-06-16] MEDS: DEXTROSE 5% IV SCH (05:03)
[2025-06-16 05:07] LABS: LYMPHOCYTES % (MANUAL) 3 % (22-44); MAN.DIFF COMMENT-IMPRESSION MANUAL DIFFERENTIAL; MONOCYTES % (MANUAL) 5 % (2-9); NUCLEATED RED BLOOD CELLS 2.7 % (0.0-0.19); PLATELET MORPHOLOGY COMMENT ADEQUATE; REACTIVE LYMPHOCYTES 1 % (0-0); SEGMENTED NEUTROPHILS % 91 % (40-70)
--- NOTE | 2025-06-16 05:22 | NUR ---
notified taha nonog program management manager about blood pressure dropping slowly, as per taha nonog add vasopressin pressor
[2025-06-16] MEDS: VASOpressin 20 UNITS/ML 1ML Vi 20 UNITS in 0.9%NACL 100ML 100 ML IV SCH (06:00)
[2025-06-16] MEDS ORDERED: NOREPINEPHRINE 16MG/NS 250ML PREMIX IV SCH (06:30)
--- NOTE | 2025-06-16 07:00 | NUR ---
did not do any of patient icu admission packet, there was no family at bedside the entire night patient is sedated and vented
[2025-06-16] MEDS: NOREPINEPHRINE 16MG/NS 250ML 250 ML IV ONE (07:23)
[2025-06-16] MEDS: FAMOTIDINE 20MG VIAL IV SCH (09:25)
[2025-06-16 10:06] LABS: CREATININE,URINE RANDOM 103.81 mg/dL (30-135)
--- NOTE | 2025-06-16 10:35 | CONS ---
[facility] CONSULTATION NOTE Date Patient Seen: Jun 16, 2025 Time of Visit: 10:29 Supervising Physician: Dr. Carlton Massey Reason for Consultation: ICU medical management Primary Care Physician: [ ] Outpatient Specialists: [ ] Inpatient Consults: [ ] PROBLEM LIST: Acute hypoxic respiratory failure Acute metabolic acidosis with encephalopathy Cardiogenic shock Lactic acidosis Cocaine positive Acute kidney disease unknown if acute on chronic Hyperglycemia in a type 2 diabetic present on arrival Episode of hypoglycemia HPI: Patient is a 34-year-old female admitted to the ICU, patient presented to the emergency department with neighbors and friends after they observed her acting bizarre running around the neighborhood. They reported she was not herself, she was confused and combative. Patient was intubated in the emergency department for airway protection. Toxicology positive for cocaine, she had a lactic acid of 5.5, hypotensive and started on pressors. I have seen and examined the patient in the ICU. She is currently intubated, sedated, she is on vasopressin and Levophed. Her last ABG revealed her to be acidotic in his currently on a bicarb drip. We are pending a repeat ABG. Chest x-ray reveals vascular congestion, pending an echocardiogram. Pending additional details when family are available. Admitted under the hospitalist service, critical Care consulted for ICU medical management. PAST MEDICAL HX: see above PAST SURGICAL HX: noncontributory SOCIAL HISTORY: No tobacco, ETOH, or illicit drug use Coded Allergies: No Known Drug Allergies (Unverified Allergy, Unknown, 10/23/19) REVIEW OF SYSTEMS: 12 point ROS reviewed with patient. Pertinent positives mentioned above. Otherwise negative. PHYSICAL EXAM: GENERAL: alert, weak, awake oriented x 3 HEENT: EOMI, Sclera non icteric, moist mucosa NECK: Supple, no JVD, trachea midline LUNGS: Clear breath sounds bilaterally. No wheezes HEART: Regular rate and rhythm. Normal S1 and S2, without murmurs ABD: Abdomen soft, nontender. Bowel sounds present EXT: No clubbing cyanosis or edema NEURO: Alert and oriented to person, follows commands Vital Signs (last 8hr) Date Time Temp Pulse Resp B/P (MAP) Pulse Ox O2 Delivery O2 Flow Rate FiO2 06/16/25 09:58 99.9 06/16/25 08:10 109 60 06/16/25 07:30 100.4 06/16/25 07:23 90/67 06/16/25 07:04 110 24 06/16/25 06:57 110 60 06/16/25 06:37 110 21 96/67 (77) 97 06/16/25 06:33 110 22 84/54 (64) 98 06/16/25 06:28 111 24 93/59 (70) 98 06/16/25 06:14 114 22 113/97 (102) 98 06/16/25 06:00 60 06/16/25 06:00 92/37 06/16/25 06:00 98 Ventilator+ 80 06/16/25 05:58 112 26 85/32 (49) 98 06/16/25 05:43 113 19 97/65 (76) 99 06/16/25 05:28 117 21 86/34 (51) 98 06/16/25 05:13 118 22 110/68 (82) 98 06/16/25 05:04 107/67 06/16/25 04:57 118 22 83/49 (60) 99 06/16/25 04:38 116 31 93/50 (64) 99 06/16/25 04:35 117 60 06/16/25 04:23 114 23 104/51 (68) 99 06/16/25 04:09 60 06/16/25 04:08 121 21 76/35 (49) 98 06/16/25 04:00 100.4 06/16/25 03:48 118 21 97/78 (84) 97 06/16/25 03:33 116 22 110/47 (68) 99 06/16/25 03:23 116 25 95/52 (66) 98 06/16/25 03:08 117 22 118/41 (66) 99 06/16/25 02:55 80 06/16/25 02:54 118 22 101/87 (92) 100 LABS: Hematology Labs: Test 06/16/25 03:52 Range/Units White Blood Count 30.2 #*H 4.8-10.8 K/uL Red Blood Count 5.15 4.00-5.50 MIL/uL Hemoglobin 15.7 12.0-16.0 g/dL Hematocrit 48.4 H 36-48 % Mean Corpuscular Volume 94.0 79-99 fL Mean Corpuscular Hemoglobin 30.5 27.0-33.0 pg Mean Corpuscular Hemoglobin Concent 32.4 32.0-36.0 g/dL Red Cell Distribution Width 15.3 11.0-15.5 % Platelet Count 145 # 130-400 K/uL Mean Platelet Volume 10.0 7.5-10.5 fL Immature Granulocyte % (Auto) 3.3 H 0-1 % Neutrophils (%) (Auto) 81.8 H 40.0-77.0 % Lymphocytes (%) (Auto) 6.6 L 21.0-51.0 % Monocytes (%) (Auto) 7.8 3.0-13.0 % Eosinophils (%) (Auto) 0.1 0.0-8.0 % Basophils (%) (Auto) 0.4 0.0-5.0 % Neutrophils # (Auto) 24.7 H 1.8-7.7 K/uL Lymphocytes # (Auto) 2.0 1.0-4.8 K/uL Monocytes # (Auto) 2.4 H 0.1-1.0 K/uL Eosinophils # (Auto) 0.02 0.00-0.70 K/uL Basophils # (Auto) 0.13 0.00-0.20 K/uL Absolute Immature Granulocyte (auto 1.01 H 0-1 K/uL Segmented Neutrophils % 91 H 40-70 % Lymphocytes % (Manual) 3 L 22-44 % Monocytes % (Manual) 5 2-9 % Nucleated Red Blood Cells 2.7 H 0.0-0.19 % Differential Comment MANUAL DIFFERENTIAL Reactive Lymphocytes 1 H 0-0 % White Cell Morphology Comment See comments Platelet Morphology Comment ADEQUATE Red Blood Cell Morphology ANISO 1+ Chemistry Labs: Test 06/16/25 07:11 06/16/25 03:52 06/15/25 22:39 06/15/25 17:49 Range/Units Whole Blood Glucose 103 70-110 MG/DL Sodium Level 145 136-145 mmol/L Potassium Level 3.2 L 3.5-5.1 mmol/L Chloride Level 111 101-111 mmol/L Carbon Dioxide Level 19 L 21-32 mmol/L Blood Urea Nitrogen 15 7-18 mg/dL Creatinine 3.5 H 0.5-1.0 mg/dL Glomerular Filtration Rate Calc 17 >90 mL/min Random Glucose 42 #*L 70-105 mg/dL Lactic Acid Level 5.5 H 0.8-2.5 mmol/L Total Calcium 8.4 L 8.5-10.1 mg/dL Phosphorus Level 1.5 L 2.5-4.9 mg/dL Magnesium Level 2.20 1.80-2.40 mg/dL Serum Test, Qualitative NEGATIVE NEGATIVE Procalcitonin 1.37 H 0.05-0.5 ng/mL Total Creatine Kinase 308 #H 21-232 U/L Troponin I High Sensitivity 50 4-50 ng/L Triglycerides Level 232 H 30-200 mg/dL Cholesterol Level 169 <200 mg/dL LDL Cholesterol 90 0-99 mg/dL HDL Cholesterol 48 35-85 mg/dL Test 06/15/25 00:15 Range/Units Ammonia 41 H 11-32 umol/L Coagulation Labs: Test 06/15/25 17:49 Range/Units Prothrombin Time 10.5 9.6-11.6 SEC Prothromb Time International Ratio 0.99 0.85-1.15 Activated Partial Thromboplast Time 21.8 L 26.3-35.5 SEC DIAGNOSTICS / RADIOLOGY RESULTS: [ ] PLAN Vent management, pending an ABG this morning so we can adjust the vent, currently 60%, 500, peep of 5 Chest x-ray reveals congestion, we will back off on the fluids, DC the bicarb drip, pending ABG we will adjust with pushes Weaning Levophed and vaso Pending echocardiogram Glucose checks, follow closely as patient was hypoglycemic earlier Avoid beta-blockers if hypotensive due to cocaine positive NEURO: Minimize central acting medications as possible. Fall Precautions. Well lighted room through the day and minimize interruptions through the night to prevent acute delirium. PULMONARY: Supplemental 02 as needed Titrate Fio2 to keep Spo2 > or = 90% DuoNebs and CPT as needed IS hourly while awake for pulmonary hygiene Out of bed to chair as tolerated VAP Bundle Vent/BIPAP Settings: [ ] Driving pressure: [ ] P Plat: [ ] Static C: [ ] Static R: [ ] P/F Ratio: [ ] CARDIOVASCULAR: Follow hemodynamics. Titrate vasopressor to keep MAP >65 or systolic blood pressure >95mmHg DIPS: [ ] LINES: [ ] GI & NUTRITION: Continue nutritional support Aspirations precautions Prokinetic agents and laxatives as needed KIDNEYS & ELECTROLYTES: Strict monitoring of intake and output Daily weights Avoid nephrotoxic agents Monitor electrolytes and replace as needed Goal urine output of 30mL/hr or 0.5mL/kg/hr Urine output: [ ] Fluid Balance: [ ] ENDOCRINE: Maintain blood glucose between 100-180 at all times. Insulin sliding scale for blood glucose management INFECTIOUS DISEASE: Trend temperature. Mae-culture if febrile. Micro: [ ] Antibiotics: [ ] HEMATOLOGY & COAGULATION: Monitor H&H. Keep Hgb > 7 Transfuse 1 unit of PRBC for Hgb < 7 Transfuse 1 pack of platelets of platelets < 20, 000 Watch for any signs and symptoms of bleeding SKIN: Pressure ulcer prevention per facility protocol Rehab: PT/OT Prophylaxis: GI: [ ] DVT: [ ] Code Status: Full Resuscitation Disposition: [ ] Other: Total critical care time 63 minutes, time excludes any procedures or educational time Case was discussed and seen with my supervising physician. The above plan was formulated and agreed upon. QUINCY SANTOS PAC Jun 16, 2025 10:35
[2025-06-16 11:00] LABS: ABG BASE EXCESS -11.0 mmol/L (-2.0-3.0); ABG HCO3 14.5 mmol/L (21.0-28.0); ABG OXYGEN SATURATION 98.1 % (94.0-98.0); ABG PCO2 32 mmHg (32-45); ABG PH 7.273 (7.350-7.450); CARBON MONOXIDE 0.7 % (0.5-1.5); DEVICE COMMENT RR; PO2, ARTERIAL BG 117.0 mmHg (83.0-108.0); TEMPERATURE, CELSIUS BG 37.0 CELSIUS (35.5-37.0)
[2025-06-16] MEDS: SODIUM BICARB 50MEQ 50ML VIAL 150 ML ONE (11:29)
[2025-06-16] MEDS: SODIUM BICARB 50MEQ 50ML VIAL IV ONE ×2 (11:34→15:36)
[2025-06-16] MEDS: Solu-medROL 40MG VIAL IVP SCH (13:03)
[2025-06-16] MEDS: SODIUM BICARB 8.4% 50ML SYRING 150 MEQ in DEXTROSE 5%-WATER 1,000 ML IVP SCH (13:04)
--- NOTE | 2025-06-16 13:25 | PN ---
[facility] PROGRESS NOTE Date of Service: Jun 16, 2025 Time of Service: 13:20 SUBJECTIVE: 06/16 patient has been seen and examined at bedside, case discussed with the RN. Patient admitted to the intensive care unit, the time of my visit she is intubated, mechanical ventilation, on Versed, propofol, vasopressin for blood pressure support, she is getting broad-spectrum IV antibiotics. Blood pressure 109/50, heart rate of 160, patient with temperature 100.2. CBC shows a WBC of 3.2. Toxicology screen positive for cocaine. ABG with pH of 7.27, pCO2 of 32, bicarb of 14.5. Sputum g stain positive cocci in clusters and chains. Chest x- ray shows endotracheal tube tip 1.4 cm above kay, consider retracting, multifocal left lung airspace disease possibly infectious or inflammatory, small left pleural effusion, mild cardiomegaly with mild central pulmonary vascular congestion. No acute intracranial abnormality noted. REVIEW OF SYSTEMS CONSTITUTIONAL: Denies fevers, chills, or night sweats. No unintentional weight loss reported. NEUROLOGICAL: Denies headache, amaurosis fugax, motor weakness, sensory deficit, vertigo/spinning sensation, gait abnormalities, or tremors. ENT: No hearing loss, otalgia, otorrhea, rhinitis, rhinorrhea, hoarseness, or sore throat. CARDIOVASCULAR: Denies any exertional angina, dyspnea on exertion, orthopnea, paroxysmal nocturnal dyspnea, palpitations, life-threatening arrhythmias, claudication. PULMONARY: Denies any shortness of breath, cough, phlegm/sputum, hemoptysis, pleuritic chest pain. SLEEP: Denies morning headaches, daytime somnolence or napping. Denies difficulty falling asleep, staying asleep, waking from sleep. Denies knowledge of snoring. GASTROINTESTINAL: Denies any type of dysphagia to either liquids or solids. Denies nausea, vomiting, pyrosis, early satiety, abdominal pain, diarrhea, constipation, or changes in stool consistency or caliber. Denies coffee-ground emesis, hematemesis, hematochezia, or melanotic stools. GENITOURINARY: Denies frequency, urgency, nocturia, hematuria or incontinence (Storage/Irritative symptoms.) Low urinary stream, straining to void, urinary intermittency or hesitancy, splitting of the voiding stream, terminal dribbling. ENDOCRINOLOGIC: Denies polyuria, polydipsia, polyphagia or heat/cold intolerances. HEMATOLOGIC: Denies thrombophilia/previous clots, or coagulopathy/bleeding disorders. ONCOLOGIC: Denies personal history of malignancy. DERMATOLOGIC: Denies rashes or pruritus. PSYCHIATRIC: Denies any suicidal or homicidal ideation. Denies hallucinations. PHYSICAL EXAM GENERAL APPEARANCE: The patient is currently intubated, mechanical ventilation. NEUROLOGICAL: Cranial nerves II-XII grossly intact. Motor is 5/5 in bilateral upper and lower extremities proximal to distal. No sensory deficits. HEENT: Face is symmetric. Pupils are equal and reactive. Extraocular movements are intact. NECK: Supple. No JVD. No thyromegaly. No submental, submandibular, pre- /postauricular, occipital or supraclavicular lymphadenopathy. CHEST: Normal chest expansion. No Telemetry. LUNGS: Absence of any rales, rhonchi or any wheezing. CARDIOVASCULAR: Regular. S1 and S2 normal. No appreciable rubs, murmurs or gallops. ABDOMEN: Soft, nontender, and nondistended. There is no rebound, voluntary guarding, or rigidity. : Deferred. No [place]. EXTREMITIES: Non-edematous and not cyanotic. No clubbing. Good capillary refill. SKIN: No skin breakdown. Vital Signs (last 8hr) Date Time Temp Pulse Resp B/P (MAP) Pulse Ox O2 Delivery O2 Flow Rate FiO2 06/16/25 12:45 116 24 109/54 (72) 96 06/16/25 12:30 115 23 110/66 (81) 96 06/16/25 12:15 115 23 89/36 (53) 97 06/16/25 12:00 111 21 103/56 (72) 98 06/16/25 12:00 100.2 06/16/25 11:45 111 21 110/62 (78) 97 06/16/25 11:39 114 40 06/16/25 11:30 40 06/16/25 11:30 112 17 128/60 (82) 98 06/16/25 11:15 112 17 128/60 (82) 98 06/16/25 11:04 40 06/16/25 11:00 113 19 100/56 (71) 94 06/16/25 10:59 40 06/16/25 10:45 114 23 95 11/6/25 10:30 113 24 96/56 (69) 95 06/16/25 10:15 107 51 95/61 (72) 97 06/16/25 10:00 112 24 92/62 (72) 99 06/16/25 09:58 99.9 06/16/25 09:45 111 23 102/67 (79) 99 06/16/25 09:30 109 21 93/74 (80) 99 06/16/25 09:15 107 22 93/69 (77) 99 06/16/25 09:00 107 21 101/65 (77) 98 06/16/25 08:45 107 22 100/64 (76) 98 06/16/25 08:30 109 20 103/68 (80) 98 06/16/25 08:15 109 23 102/71 (81) 97 06/16/25 08:10 109 60 06/16/25 08:00 109 21 104/60 (75) 97 06/16/25 08:00 60 06/16/25 08:00 97 Ventilator+ 80 06/16/25 07:45 109 18 102/64 (77) 97 06/16/25 07:30 108 18 98/68 (78) 97 06/16/25 07:30 100.4 06/16/25 07:23 90/67 06/16/25 07:15 108 26 97/70 (79) 98 06/16/25 07:04 110 24 06/16/25 07:00 108 20 97/69 (78) 98 06/16/25 06:57 110 60 06/16/25 06:45 110 20 93/66 (75) 98 06/16/25 06:37 110 21 96/67 (77) 97 06/16/25 06:33 110 22 84/54 (64) 98 06/16/25 06:28 111 24 93/59 (70) 98 06/16/25 06:14 114 22 113/97 (102) 98 06/16/25 06:00 60 06/16/25 06:00 92/37 06/16/25 06:00 98 Ventilator+ 80 06/16/25 05:58 112 26 85/32 (49) 98 06/16/25 05:43 113 19 97/65 (76) 99 06/16/25 05:28 117 21 86/34 (51) 98 LABS: Laboratory: Test 06/16/25 12:48 06/16/25 10:58 06/16/25 07:11 06/16/25 03:52 Range/Units Troponin I High Sensitivity 1821.7 *H 4-50 ng/L Blood Gas Specimen Type Arterial Arterial Blood pH 7.273 L 7.350-7.450 Arterial Blood Partial Pressure CO2 32 32-45 mmHg Arterial Blood Partial Pressure O2 117.0 H 83.0-108.0 mmHg Arterial Blood HCO3 14.5 L 21.0-28.0 mmol/L Arterial Blood Oxygen Saturation 98.1 H 94.0-98.0 % Arterial Blood Base Excess -11.0 L -2.0-3.0 mmol/L Hemoglobin (Blood Gas) 15.4 12.0-16.0 g/dL Sodium (Blood Gas) 141 136-145 MMOL/L Bedside Potassium (Blood Gas) 4.4 3.4-4.5 MMOL/L Bedside Chloride (Blood Gas) 111 H 98-107 MMOL/L Bedside Glucose (Blood Gas) 100 H 65-95 MG/DL Bedside Ionized Calcium (Blood Gas) 1.06 L 1.15-1.33 MMOL/L Bedside Lactic Acid (Blood Gas) 5.18 *H 0.36-0.75 MMOL/L Blood Gas Temperature 37.0 35.5-37.0 CELSIUS Blood Gas Respiration Rate 20.0 min. Blood Gas Vent Mode VITOR MONTANEZ RN ROOM AIR FiO2 60.0 % Blood Gas Tidal Volume 500 ml Blood Gas PEEP 5 cm H2O Blood Gas Specimen Comment RR Whole Blood Glucose 103 70-110 MG/DL White Blood Count 30.2 #*H 4.8-10.8 K/uL Red Blood Count 5.15 4.00-5.50 MIL/uL Hemoglobin 15.7 12.0-16.0 g/dL Hematocrit 48.4 H 36-48 % Mean Corpuscular Volume 94.0 79-99 fL Mean Corpuscular Hemoglobin 30.5 27.0-33.0 pg Mean Corpuscular Hemoglobin Concent 32.4 32.0-36.0 g/dL Red Cell Distribution Width 15.3 11.0-15.5 % Platelet Count 145 # 130-400 K/uL Mean Platelet Volume 10.0 7.5-10.5 fL Immature Granulocyte % (Auto) 3.3 H 0-1 % Neutrophils (%) (Auto) 81.8 H 40.0-77.0 % Lymphocytes (%) (Auto) 6.6 L 21.0-51.0 % Monocytes (%) (Auto) 7.8 3.0-13.0 % Eosinophils (%) (Auto) 0.1 0.0-8.0 % Basophils (%) (Auto) 0.4 0.0-5.0 % Neutrophils # (Auto) 24.7 H 1.8-7.7 K/uL Lymphocytes # (Auto) 2.0 1.0-4.8 K/uL Monocytes # (Auto) 2.4 H 0.1-1.0 K/uL Eosinophils # (Auto) 0.02 0.00-0.70 K/uL Basophils # (Auto) 0.13 0.00-0.20 K/uL Absolute Immature Granulocyte (auto 1.01 H 0-1 K/uL Segmented Neutrophils % 91 H 40-70 % Lymphocytes % (Manual) 3 L 22-44 % Monocytes % (Manual) 5 2-9 % Nucleated Red Blood Cells 2.7 H 0.0-0.19 % Differential Comment MANUAL DIFFERENTIAL Reactive Lymphocytes 1 H 0-0 % White Cell Morphology Comment See comments Platelet Morphology Comment ADEQUATE Red Blood Cell Morphology ANISO 1+ Sodium Level 145 136-145 mmol/L Potassium Level 3.2 L 3.5-5.1 mmol/L Chloride Level 111 101-111 mmol/L Carbon Dioxide Level 19 L 21-32 mmol/L Blood Urea Nitrogen 15 7-18 mg/dL Creatinine 3.5 H 0.5-1.0 mg/dL Glomerular Filtration Rate Calc 17 >90 mL/min Random Glucose 42 #*L 70-105 mg/dL Lactic Acid Level 5.5 H 0.8-2.5 mmol/L Total Calcium 8.4 L 8.5-10.1 mg/dL Phosphorus Level 1.5 L 2.5-4.9 mg/dL Magnesium Level 2.20 1.80-2.40 mg/dL B-Type Natriuretic Peptide 50 0-100 pg/mL Serum Test, Qualitative NEGATIVE NEGATIVE Test 06/15/25 22:39 06/15/25 18:14 06/15/25 17:49 06/15/25 00:15 Range/Units Procalcitonin 1.37 H 0.05-0.5 ng/mL Urine Color LIGHT-YELLOW YELLOW Urine Appearance CLEAR CLEAR Urine pH 6.0 5.0-8.0 Urine Specific [place] 1.012 1.001-1.031 Urine Protein NEGATIVE NEGATIVE mg/dL Urine Glucose (UA) NEGATIVE NEGATIVE mg/dL Urine Ketones NEGATIVE NEGATIVE mg/dL Urine Occult Blood NEGATIVE NEGATIVE Urine Nitrate NEGATIVE NEGATIVE Urine Bilirubin NEGATIVE NEGATIVE mg/dL Urine Urobilinogen 0.2 0.2-1.0 mg/dL Urine Leukocyte Esterase NEGATIVE NEGATIVE Francia/uL Urine Random Creatinine 103.81 30-135 mg/dL Urine Random Sodium 124 40-220 mmol/l Urine Opiates Screen NEGATIVE NEGATIVE Urine Barbiturates Screen NEGATIVE NEGATIVE Urine Phencyclidine Screen NEGATIVE NEGATIVE Urine Amphetamines Screen NEGATIVE NEGATIVE Urine Benzodiazepines Screen NEGATIVE NEGATIVE Urine Cocaine Screen POSITIVE H NEGATIVE Urine Marijuana (THC) Screen NEGATIVE NEGATIVE Prothrombin Time 10.5 9.6-11.6 SEC Prothromb Time International Ratio 0.99 0.85-1.15 Activated Partial Thromboplast Time 21.8 L 26.3-35.5 SEC Triglycerides Level 232 H 30-200 mg/dL Cholesterol Level 169 <200 mg/dL LDL Cholesterol 90 0-99 mg/dL HDL Cholesterol 48 35-85 mg/dL Ammonia 41 H 11-32 umol/L Current Medications Medications (Trade) Dose Ordered Sig/Sandra Route PRN Reason Start Time Stop Time Status Last Admin Dose Admin Acetaminophen (TYLenol 650MG SUPPOSITORY) 650 mg Q6H PRN RC MILD PAIN (1-3) IF NPO 06/15/25 21:30 07/15/25 21:29 06/16/25 07:30 650 MG Acetaminophen (TYLenol 650MG SUPPOSITORY) 650 mg Q6H PRN RC MILD PAIN (1-3) 06/15/25 22:00 06/15/25 22:04 DC Albuterol (DUOneb) 1 UDVIAL [id number] IH 06/16/25 00:00 07/16/25 00:00 06/16/25 11:29 1 UDVIAL Famotidine (Pepcid 20mg Vial) 20 mg DAILY IV 06/16/25 09:00 07/16/25 08:59 06/16/25 09:25 20 MG Fentanyl Citrate 100 ml @ 0 mls/hr PROTOCOL IV 06/15/25 18:00 06/22/25 17:59 06/16/25 10:54 10 MLS/HR Guaifenesin (RobiTUSSin SUGAR-FREE 100 MG/ 5 ML UDCUP) 400 mg Q4H PRN PO cough 06/16/25 00:00 07/16/25 00:00 Heparin Sodium (Porcine) (HEParin 5,000 UNIT VIAL) 5,000 unit Q12H SQ 06/16/25 09:00 07/16/25 08:59 06/16/25 09:29 5,000 UNIT Hydromorphone HCl (DiLAUDid 0.5MG INJ) 0.25 mg Q4H PRN IVP SEVERE PAIN (7-10) 06/15/25 22:00 06/20/25 21:59 Insulin Human Regular (humuLIN R 100 UNIT/ML 3ML) INSULIN SLIDING SCAL... Q6H6 SQ 06/16/25 00:00 07/16/25 00:00 Lactated Ringer's 1,000 ml @ 75 mls/hr [id number] IV 06/15/25 22:00 06/16/25 11:58 DC 06/16/25 10:26 75 MLS/HR Lactated Ringer's (Lactated Ringers 1000ml) 1,000 ml ONCE IV 06/16/25 04:30 06/16/25 04:22 DC Magnesium Sulfate 50 ml @ 0 mls/hr PROTOCOL PRN IV h 06/15/25 22:00 07/15/25 21:59 Methylprednisolone Sodium Succinate (Solu-medROL 40MG) 50 mg Q6H IVP 06/16/25 12:00 07/16/25 11:59 06/16/25 13:03 50 MG Midazolam HCl 50 ml @ 0 mls/hr PROTOCOL IV 06/15/25 18:00 06/22/25 17:59 06/16/25 07:23 10 MLS/HR Norepinephrine 250 ml @ 0 mls/hr PROTOCOL IV 06/15/25 19:00 06/16/25 06:15 DC 06/16/25 05:04 115.8 MLS/HR Norepinephrine Bitartrate (Norepineph 16 Mg/250ml NS Premix) follow protocol PROTOCOL IV 06/16/25 06:30 07/16/25 06:29 Ondansetron HCl (zoFRAN 4MG INJ) 4 mg Q6H PRN IV NAUSEA/VOMITING 06/15/25 22:00 07/15/25 21:59 Pantoprazole Sodium (PROTonix 40MG INJ) 40 mg DAILY IV 06/16/25 09:00 06/15/25 22:23 DC Piperacillin Sod/ Tazobactam Sod (Zosyn 3.375gm+NS 50ml) 3.375 gm Q8H IV 06/15/25 22:00 06/25/25 21:59 06/16/25 13:03 3.375 GM Potassium Chloride 100 ml @ 50 mls/hr AD PRN IV POTASSIUM PROTOCOL 06/15/25 22:00 07/15/25 21:59 06/16/25 09:25 50 MLS/HR Propofol 100 ml @ 0 mls/hr PROTOCOL IV 06/15/25 19:00 07/15/25 18:59 Sodium Bicarbonate 150 meq/Dextrose 1,000 ml @ 150 mls/hr Q6H40M IV 06/16/25 04:30 06/16/25 10:22 DC 06/16/25 05:03 150 MLS/HR Sodium Bicarbonate 150 meq/Dextrose 1,150 ml @ 150 mls/hr Q7H40M IVP 06/16/25 12:00 07/16/25 11:59 06/16/25 13:04 150 MLS/HR Vasopressin 20 units/Sodium Chloride 100 ml @ 0 mls/hr PROTOCOL IV 06/16/25 06:00 07/16/25 05:59 06/16/25 06:00 9 MLS/HR DIAGNOSTICS / RADIOLOGY: [ ] ASSESSMENT: Septic shock, POA Pneumonia, POA Leukocytosis, POA Metabolic encephalopathy, POA Uncontrolled Diabetes mellitius type2, POA Acute kidney injury, POA, on 10/01/2023 creatinine 0.9, today it is 1.3 Left pleural effusion Hypertension PLAN: patient has been seen and examined at bedside, case discussed with the RN. Patient admitted to the intensive care unit, the time of my visit she is intubated, mechanical ventilation, on Versed, propofol, vasopressin for blood pressure support, she is getting broad-spectrum IV antibiotics. Blood pressure 109/50, heart rate of 160, patient with temperature 100.2. CBC shows a WBC of 3.2. Toxicology screen positive for cocaine. ABG with pH of 7.27, pCO2 of 32, bicarb of 14.5. Sputum g stain positive cocci in clusters and chains. Chest x- ray shows endotracheal tube tip 1.4 cm above kay, consider retracting, multifocal left lung airspace disease possibly infectious or inflammatory, small left pleural effusion, mild cardiomegaly with mild central pulmonary vascular congestion. No acute intracranial abnormality noted. NEURO: Minimize central acting medications as possible. Fall Precautions. Well lighted room through the day and minimize interruptions through the night to prevent acute delirium. PULMONARY: Supplemental 02 as needed BiPAP as necessary, for respiratory distress Titrate Fio2 to keep Spo2 > or = 90% DuoNebs and CPT as needed IS hourly while awake for pulmonary hygiene prn Out of bed to chair as tolerated Maintain aspiration precautions at all times CARDIOVASCULAR: Follow hemodynamics. Vital signs per facility protocol GI & NUTRITION: Continue nutritional support Aspirations precautions Prokinetic agents and laxatives as needed KIDNEYS & ELECTROLYTES: Strict monitoring of intake and output Daily weights Avoid nephrotoxic agents Monitor electrolytes and replace as needed Goal urine output of 30mL/hr or 0.5mL/kg/hr Medications to be dosed according to renal function. Avoid contrast if possible ENDOCRINE: Maintain blood glucose between 100-180 at all times. Insulin sliding scale for blood glucose management Hypoglycemia and hyperglycemia protocol in place INFECTIOUS DISEASE: Trend temperature, WBC and procalcitonin level Follow cultures, deescalate antibiotics as soon as possible. Panculture if new onset fever HEMATOLOGY & COAGULATION: Monitor H&H. Keep Hgb > 7 Transfuse 1 unit of PRBC for Hgb < 7 Transfuse 1 pack of platelets of platelets < 20, 000 Watch for any signs and symptoms of bleeding SKIN: Pressure ulcer prevention per facility protocol Specialty mattress as needed ORTHO/REHAB Continue PT/OT PRN: MEDICATIONS Tylenol 650 mg po every 4 hrs for fever zofran 4 mg IV every 6 hrs for n/v Hydralazine 5 mg IV every 4 hrs systolic pressure > 160 bowel regiment: lactulose 20 gm PO BID PRN constipation Supportive measures: Continue GI and DVT prophylaxis Disposition: Pending improvement in clinical condition All questions answered time spent: > 35 min TRINH MALIN MD Jun 16, 2025 13:25
--- NOTE | 2025-06-16 13:29 | HMCSR ---
APPROVED REPORT EXAM: Two-dimensional and M-mode echocardiogram with Doppler and color Doppler. INDICATION ICD: Cardiomyopathy 2D Dimensions RVDd 3.4 cm LVEF(%) 45.3 (>50%) LVED Vol(simp.) 46.0 mL IVSd 1.0 (0.7-1.1cm) FS(%) 22 % LVES Vol(simp.) 28.0 mL LVDd 3.7 (3.8-5.6cm) LA (2D) 3.1 (1.6-4.0cm) LVEF(%, simp.) 39 % PWd 1.2 (0.7-1.1cm) Ao Root(2D) 3.0 (2.0-3.7cm) LA ESV INDEX (BP) 12.08 mL/m2 IVSs 1.2 cm LVOT diam 2.0 (1.8-2.4cm) LVDs 2.9 (2.5-4.0cm) IVC diam 1.0 cm PWs 1.4 cm Deformation Strain Apical 4 -10.3 % Apical 2 -10.4 % Apical 3 -10.5 % Global Strain -10.4 % M-Mode Dimensions EPSS 0.5 cm LA (MM) 3.1 (1.6-4.0cm) Ao Root(MM) 3.0 (2.0-3.7cm) Aortic Valve AoV Vmax 1.2 m/s Ao Peak GR 6.1 mmHg LVOT Vmax 1.2 m/s AoV VTI 0.2 m Ao Mean GR 3.5 mmHg LVOT VTI 0.14 m FLORINDA (VMAX) 3.02 cm2 FLORINDA (VTI) 2.9 cm2 Mitral Valve MV E Vmax 55.4 cm/s DECEL Time 160 ms MV A Vmax 51.7 cm/s P 1/2 T 42 ms E/A ratio 1.1 MVA (PHT) 5.2 cm2 TDI E/E' Medial 10.9 E/E' Lateral 7.5 Medial E' Peak V 5.09 cm/s Lateral E' Peak V 7.39 cm/s Pulmonary Valve PV Vmax 1.0 m/s PV Mean GR 2.4 mmHg PV Peak GR 4.1 mmHg Tricuspid Valve TR Vmax 0.9 m/s RAP (EST) 8 mmHg RVSP 11.2 mmHg TR Peak GR 3.2 mmHg Left Ventricle The left ventricle is normal size. GLS -10.0% There is normal left ventricular wall thickness. LVEF is 40-45%. Indeterminate diastolic dysfunction. Right Ventricle The right ventricle is normal size. Right ventricular systolic function is mildly reduced. Atria The left atrium size is normal. The right atrium size is normal. Aortic Valve The aortic valve is normal in structure. No aortic regurgitation is present. There is no aortic valvular stenosis. Mitral Valve The mitral valve is normal in structure. There is no mitral valve regurgitation noted. There is no mitral valve stenosis. Tricuspid Valve The tricuspid valve is normal in structure. There is no tricuspid valve regurgitation noted. Pulmonic Valve The pulmonary valve is normal in structure. There is no pulmonic valvular regurgitation. Great Vessels The aortic root is normal in size. The IVC is normal in size and collapses <50% with inspiration. Pericardium There is no pericardial effusion. Other Information Quality : Technically difficult study due to body habitus and pt intubated Rhythm : atrial fibrillation with rapid ventricular response Conclusion LVEF is 40-45%. Indeterminate diastolic dysfunction.
[2025-06-16] MEDS: LACTATED RINGERS 1000ML 1,000 ML IV SCH (13:34)
--- NOTE | 2025-06-16 14:51 | HMCIMG ---
EXAM: US Retroperitoneum, Renal. CLINICAL HISTORY: kidney function TECHNIQUE: Real-time ultrasound of the retroperitoneum with image documentation. COMPARISON: None provided. FINDINGS: RIGHT KIDNEY: Normal in size and contour. No renal mass or calculus. No hydronephrosis. LEFT KIDNEY: Normal in size and contour. No renal mass or calculus. No hydronephrosis. BLADDER: The bladder is decompressed by Juarez catheter. MISCELLANEOUS: No other significant abnormality evident. IMPRESSION: No acute abnormality evident. No hydronephrosis. /[place]
--- NOTE | 2025-06-16 14:55 | CONS ---
[facility] CARDIOLOGY CONSULTATION REPORT Cardiology consultation note dictated for Caroline Guzman MD Date Patient Seen: Jun 16, 2025 Time of Visit: 14:43 Requesting Physician: MARK Mcgill Reason for Consultation: NSTEMI History of Present Illness: This is a 34-year-old female with a past medical history of diabetes mellitus type 2, substance abuse, and noncompliance who was brought to the ED by neighbors who found her wandering the neighborhood with altered mental status. The patient was reported to be combative. Abrasions to bilateral knees and her right hand. CT of the head on 06/15 was without acute findings. WBC on admission of 16.2 increasing at 30.2k/ul. Lactic acid on admission of 3.4 increasing to 5.5. Blood cultures drawn on 06/15 are in process. UDS 06/15 was positive for cocaine. Urinalysis on 06/15 was normal. Ammonia minimally elevated at 41. Chest x-ray on 06/15 demonstrated multifocal left lung airspace disease, a small left pleural effusion, and mild central pulmonary vascular congestion. The patient has been intubated and is on vasopressor support. Creatinine of 1.3 on admission increasing at 3.5, pending renal ultrasound. Cardiology has been consulted for NSTEMI. Troponin 50, 1821, pending additional draws at 8pm, 1am and 7am. 2D echo on 06/16/2025 with an LVEF 40-45% with indeterminate diastolic dysfunction. BNP of 50. CK of 308 and [address]94 Past Medical History: As per HPI and summarized below Past Surgical History: Unknown Family History: Noncontributory Social History: Unknown Habits: Cocaine abuse Home Meds: None Current Meds: Current Medications Medications Dose Ordered Sig/Sandra Start Time Stop Time Status Last Admin Midazolam HCl 50 ml @ 0 mls/hr PROTOCOL 06/15/25 18:00 06/22/25 17:59 06/16/25 07:23 Fentanyl Citrate 100 ml @ 0 mls/hr PROTOCOL 06/15/25 18:00 06/22/25 17:59 06/16/25 10:54 Propofol 100 ml @ 0 mls/hr PROTOCOL 06/15/25 19:00 07/15/25 18:59 Acetaminophen 650 mg Q6H PRN 06/15/25 21:30 07/15/25 21:29 06/16/25 07:30 Piperacillin Sod/ Tazobactam Sod 3.375 gm Q8H 06/15/25 22:00 06/25/25 21:59 06/16/25 13:03 Hydromorphone HCl 0.25 mg Q4H PRN 06/15/25 22:00 06/20/25 21:59 Famotidine 20 mg DAILY 06/16/25 09:00 07/16/25 08:59 06/16/25 09:25 Ondansetron HCl 4 mg Q6H PRN 06/15/25 22:00 07/15/25 21:59 Insulin Human Regular INSULIN SLIDING SCAL... Q6H6 06/16/25 00:00 07/16/25 00:00 Potassium Chloride 100 ml @ 50 mls/hr AD PRN 06/15/25 22:00 07/15/25 21:59 06/16/25 09:25 Magnesium Sulfate 50 ml @ 0 mls/hr PROTOCOL PRN 06/15/25 22:00 07/15/25 21:59 Albuterol 1 UDVIAL [id number] 06/16/25 00:00 07/16/25 00:00 06/16/25 11:29 Guaifenesin 400 mg Q4H PRN 06/16/25 00:00 07/16/25 00:00 Vasopressin 20 units/Sodium Chloride 100 ml @ 0 mls/hr PROTOCOL 06/16/25 06:00 07/16/25 05:59 06/16/25 06:00 Norepinephrine Bitartrate follow protocol PROTOCOL 06/16/25 06:30 07/16/25 06:29 Sodium Bicarbonate 150 meq/Dextrose 1,150 ml @ 150 mls/hr Q7H40M 06/16/25 12:00 07/16/25 11:59 06/16/25 13:04 Methylprednisolone Sodium Succinate 50 mg Q6H 06/16/25 12:00 07/16/25 11:59 06/16/25 13:03 Lactated Ringer's 1,000 ml @ 100 mls/hr Q10H 06/16/25 13:30 07/16/25 13:29 06/16/25 13:34 Phenylephrine HCl 100 mg/Sodium Chloride 250 ml @ 0 mls/hr PROTOCOL 06/16/25 14:00 07/16/25 13:59 Review of Systems: Unable to obtain a review of systems as the patient is intubated Physical Examination: GENERAL: No acute distress. The patient is sedated, intubated and mechanically ventilated HEAD: Normal with no signs of head trauma. EYES: Conjunctiva and sclera normal. ENT: Hearing grossly intact, normal oropharynx. NECK: Supple without JVD. LUNGS: Mechanical breath sounds bilaterally HEART: Normal rate and rhythm. Normal S1 and S2 without murmurs, gallop or rub. VASC: Peripheral pulses +2 bilaterally. ABD: Bowel sounds normal, soft, nontender, no masses, no organomegaly. No audible bruits. : Not examined LYMPH: No lymphadenopathy noted. EXT: No clubbing, cyanosis or edema. SKIN: Abrasions to the right hand and bilateral knees NEURO: Sedated Vital Signs (last 8hr) Date Time Temp Pulse Resp B/P (MAP) Pulse Ox O2 Delivery O2 Flow Rate FiO2 06/16/25 12:45 116 24 109/54 (72) 96 06/16/25 12:30 115 23 110/66 (81) 96 06/16/25 12:15 115 23 89/36 (53) 97 06/16/25 12:00 111 21 103/56 (72) 98 06/16/25 12:00 100.2 06/16/25 11:45 111 21 110/62 (78) 97 06/16/25 11:39 114 40 06/16/25 11:30 40 06/16/25 11:30 112 17 128/60 (82) 98 06/16/25 11:15 112 17 128/60 (82) 98 06/16/25 11:04 40 06/16/25 11:00 113 19 100/56 (71) 94 06/16/25 10:59 40 06/16/25 10:45 114 23 95 06/16/25 10:30 113 24 96/56 (69) 95 06/16/25 10:15 107 51 95/61 (72) 97 06/16/25 10:00 112 24 92/62 (72) 99 06/16/25 09:58 99.9 06/16/25 09:45 111 23 102/67 (79) 99 06/16/25 09:30 109 21 93/74 (80) 99 06/16/25 09:15 107 22 93/69 (77) 99 06/16/25 09:00 107 21 101/65 (77) 98 06/16/25 08:45 107 22 100/64 (76) 98 06/16/25 08:30 109 20 103/68 (80) 98 06/16/25 08:15 109 23 102/71 (81) 97 06/16/25 08:10 109 60 06/16/25 08:00 109 21 104/60 (75) 97 06/16/25 08:00 60 06/16/25 08:00 97 Ventilator+ 80 06/16/25 07:45 109 18 102/64 (77) 97 06/16/25 07:30 108 18 98/68 (78) 97 06/16/25 07:30 100.4 06/16/25 07:23 90/67 06/16/25 07:15 108 26 97/70 (79) 98 06/16/25 07:04 110 24 06/16/25 07:00 108 20 97/69 (78) 98 06/16/25 06:57 110 60 06/16/25 06:45 110 20 93/66 (75) 98 Laboratory: Hematology Labs: Test 06/16/25 03:52 Range/Units White Blood Count 30.2 #*H 4.8-10.8 K/uL Red Blood Count 5.15 4.00-5.50 MIL/uL Hemoglobin 15.7 12.0-16.0 g/dL Hematocrit 48.4 H 36-48 % Mean Corpuscular Volume 94.0 79-99 fL Mean Corpuscular Hemoglobin 30.5 27.0-33.0 pg Mean Corpuscular Hemoglobin Concent 32.4 32.0-36.0 g/dL Red Cell Distribution Width 15.3 11.0-15.5 % Platelet Count 145 # 130-400 K/uL Mean Platelet Volume 10.0 7.5-10.5 fL Immature Granulocyte % (Auto) 3.3 H 0-1 % Neutrophils (%) (Auto) 81.8 H 40.0-77.0 % Lymphocytes (%) (Auto) 6.6 L 21.0-51.0 % Monocytes (%) (Auto) 7.8 3.0-13.0 % Eosinophils (%) (Auto) 0.1 0.0-8.0 % Basophils (%) (Auto) 0.4 0.0-5.0 % Neutrophils # (Auto) 24.7 H 1.8-7.7 K/uL Lymphocytes # (Auto) 2.0 1.0-4.8 K/uL Monocytes # (Auto) 2.4 H 0.1-1.0 K/uL Eosinophils # (Auto) 0.02 0.00-0.70 K/uL Basophils # (Auto) 0.13 0.00-0.20 K/uL Absolute Immature Granulocyte (auto 1.01 H 0-1 K/uL Segmented Neutrophils % 91 H 40-70 % Lymphocytes % (Manual) 3 L 22-44 % Monocytes % (Manual) 5 2-9 % Nucleated Red Blood Cells 2.7 H 0.0-0.19 % Differential Comment MANUAL DIFFERENTIAL Reactive Lymphocytes 1 H 0-0 % White Cell Morphology Comment See comments Platelet Morphology Comment ADEQUATE Red Blood Cell Morphology ANISO 1+ Chemistry Labs: Test 06/16/25 12:48 06/16/25 07:11 06/16/25 03:52 06/15/25 22:39 Range/Units Total Creatine Kinase 21463 #*H 21-232 U/L Troponin I High Sensitivity 1821.7 *H 4-50 ng/L Whole Blood Glucose 103 70-110 MG/DL Sodium Level 145 136-145 mmol/L Potassium Level 3.2 L 3.5-5.1 mmol/L Chloride Level 111 101-111 mmol/L Carbon Dioxide Level 19 L 21-32 mmol/L Blood Urea Nitrogen 15 7-18 mg/dL Creatinine 3.5 H 0.5-1.0 mg/dL Glomerular Filtration Rate Calc 17 >90 mL/min Random Glucose 42 #*L 70-105 mg/dL Lactic Acid Level 5.5 H 0.8-2.5 mmol/L Total Calcium 8.4 L 8.5-10.1 mg/dL Phosphorus Level 1.5 L 2.5-4.9 mg/dL Magnesium Level 2.20 1.80-2.40 mg/dL B-Type Natriuretic Peptide 50 0-100 pg/mL Serum Test, Qualitative NEGATIVE NEGATIVE Procalcitonin 1.37 H 0.05-0.5 ng/mL Test 06/15/25 17:49 06/15/25 00:15 Range/Units Triglycerides Level 232 H 30-200 mg/dL Cholesterol Level 169 <200 mg/dL LDL Cholesterol 90 0-99 mg/dL HDL Cholesterol 48 35-85 mg/dL Ammonia 41 H 11-32 umol/L Coagulation Labs: Test 06/15/25 17:49 Range/Units Prothrombin Time 10.5 9.6-11.6 SEC Prothromb Time International Ratio 0.99 0.85-1.15 Activated Partial Thromboplast Time 21.8 L 26.3-35.5 SEC Diagnostics / Radiology: Impression and Plan: Septic shock agree Rhabdomyolysis NSTEMI likely Type II Mild cardiomyopathy (LVEF of 40-45% by Echo 06/16/2025) UDS positive for cocaine Acute renal failure Diabetes mellitus type Agree with aggressive IV fluid resuscitation. Full infectious workup-up pending. Mild cardiomyopathy, due to poor acoustic windows consider repeat limited 2D echocardiogram with Definity contrast Trend cardiac enzymes No need for anticoagulation at this time YOSEPH BURCH [employer] C[employer]TER Jun 16, 2025 14:55
[2025-06-16 15:14] LABS: ABG BASE EXCESS -9.1 mmol/L (-2.0-3.0); ABG HCO3 15.8 mmol/L (21.0-28.0); ABG OXYGEN SATURATION 95.9 % (94.0-98.0); ABG PCO2 32 mmHg (32-45); ABG PH 7.317 (7.350-7.450); CARBON MONOXIDE 0.8 % (0.5-1.5); DEVICE COMMENT RR; PO2, ARTERIAL BG 84.8 mmHg (83.0-108.0); TEMPERATURE, CELSIUS BG 37.0 CELSIUS (35.5-37.0)
--- NOTE | 2025-06-16 16:25 | NUR ---
MOTHER RACHELLE DUDLEY [phone] Per nurse [place], mother and sister were at bedside earlier and left contact # for her (mother). Sw has tried contacting mother all afternoon, # given is not accepting calls.
[2025-06-16] MEDS: DEXTROSE 50%-WATER 50 ML DISP.SYRIN IV PRN (18:41)
[2025-06-16] MEDS ORDERED: GLUCAGON 1MG KIT 1 MG ML IM PRN (19:00)
--- NOTE | 2025-06-16 20:00 | NUR ---
Spoke with Edmund Mendosa [employer]VOL[employer] T[employer]BE WINDER at this time made aware of multiple low blood sugar & patient condition. recommended a follow up ABG. Orders given and entered.
[2025-06-16] MEDS: DEXTROSE 5%-LACTATED RINGERS 1,000 ML IV SCH (20:17)
--- NOTE | 2025-06-16 21:00 | NUR ---
Romaine CHURCHILL at bedside gave a quick update on patient condition and current temperature of 102.4 order given for IV acetaminophen
[2025-06-16 21:04] LABS: CREATININE 6.1 mg/dL (0.5-1.0); GLOMERULAR FILTR. RATE CALC 9.0 mL/min (>90); GLUCOSE,RANDOM 111.0 mg/dL (70-105); SODIUM SERUM 149.0 mmol/L (136-145); TOTAL PROTEIN, SERUM 4.7 g/dL (6.0-8.3); UREA NITROGEN, BLOOD 30.0 mg/dL (7-18)
--- NOTE | 2025-06-16 22:14 | HMCIMG ---
EXAM: US Chest Limited, Evaluate for Pleural Effusion. CLINICAL HISTORY: left pleural effusion TECHNIQUE: Real-time ultrasound of the chest to evaluate for pleural effusion. COMPARISON: None provided. FINDINGS: PLEURAL SPACES: No pleural effusion. PERICARDIAL SPACE: No pericardial effusion. IMPRESSION: 1. No pleural or pericardial effusion. /[place]
--- NOTE | 2025-06-16 22:42 | NUR ---
At this time Spoke with Navya RESERVATIONS SPECIALIST made aware of unresponsive patient, tachypnea, and critical lab values. recommended ABG. orders given and entered.
[2025-06-17] VITALS (119 sets, daily range): BP systolic 73–146; BP diastolic 23–105; PULSE 95–128; RESP 19–39; TEMP 96.6–101.4; O2SAT 90–99
--- NOTE | 2025-06-17 01:50 | NUR ---
Spoke with Romaine Chino at this time to make aware of pharmacy restrictions on zyvox and update on patient condition. provided pharmacy extension.
[2025-06-17] MEDS: DEXTROSE 50%-WATER 50 ML DISP.SYRIN IV ONE (02:44)
[2025-06-17] MEDS: LINEZOLID 600 MG/ISO-OSM 300 ML IV SCH (02:45)
[2025-06-17] MEDS: ALBUTEROL 0.083% 2.5 MG/3 ML INH IH STA (02:45)
[2025-06-17] MEDS: CALCIUM GLUC 1GM/10ML VIAL IV STA (02:49)
[2025-06-17] MEDS: SODIUM BICARB 8.4% 50ML SYRING 150 MEQ in DEXTROSE 5%-WATER 850 ML IVP SCH (02:51)
[2025-06-17 04:17] LABS: IMMATURE GRANULOCYTE ABSOLUTE 0.55 K/uL (0-1); NUCLEATED RED BLOOD CELLS 4.1 % (0.0-0.19); PLATELET COUNT (AUTO) 53 K/uL (130-400); RED BLOOD CELL COUNT(AUTO) 3.73 MIL/uL (4.00-5.50); RED CELL DISTRIBUTION WIDTH 16.1 % (11.0-15.5); WHITE BLOOD COUNT (AUTO) 23.4 K/uL (4.8-10.8)
[2025-06-17 04:34] LABS: CREATININE 6.8 mg/dL (0.5-1.0); GLOMERULAR FILTR. RATE CALC 8.0 mL/min (>90); GLUCOSE,RANDOM 197.0 mg/dL (70-105); PHOSPHORUS 9.3 mg/dL (2.5-4.9); SODIUM SERUM 149.0 mmol/L (136-145); TOTAL PROTEIN, SERUM 4.0 g/dL (6.0-8.3); UREA NITROGEN, BLOOD 33.0 mg/dL (7-18)
[2025-06-17 04:46] LABS: ABG BASE EXCESS -22.4 mmol/L (-2.0-3.0); ABG HCO3 6.2 mmol/L (21.0-28.0); ABG OXYGEN SATURATION 96.9 % (94.0-98.0); ABG PCO2 22 mmHg (32-45); ABG PH 7.065 (7.350-7.450); CARBON MONOXIDE 0.3 % (0.5-1.5); PO2, ARTERIAL BG 128.5 mmHg (83.0-108.0); TEMPERATURE, CELSIUS BG 37.0 CELSIUS (35.5-37.0); VENT MODE, BG AC VC (ROOM AIR)
[2025-06-17] MEDS: SODIUM BICARB 50MEQ 50ML VIAL IV STA ×2 (05:03→09:45)
[2025-06-17] MEDS: ALBUMIN (HUMAN) 25% 50 ML IV ONE (05:10)
[2025-06-17 05:42] LABS: CREATININE,URINE RANDOM 125.97 mg/dL (30-135)
[2025-06-17 06:26] LABS: ABG BASE EXCESS -23.5 mmol/L (-2.0-3.0); ABG HCO3 5.9 mmol/L (21.0-28.0); ABG OXYGEN SATURATION 97.0 % (94.0-98.0); ABG PCO2 23 mmHg (32-45); ABG PH 7.031 (7.350-7.450); PO2, ARTERIAL BG 128.5 mmHg (83.0-108.0); TEMPERATURE, CELSIUS BG 37.0 CELSIUS (35.5-37.0); VENT MODE, BG AC (ROOM AIR)
[2025-06-17] MEDS: SODIUM BICARB 50MEQ 50ML VIAL IV ONE ×8 (06:41→23:47)
--- NOTE | 2025-06-17 08:17 | PN ---
[facility] PROGRESS NOTE Date Patient Seen: Jun 17, 2025 Time of Visit: 08:17 Supervising Physician: Dr Da Massey Primary Care Physician: [ ] Outpatient Specialists: [ ] Inpatient Consults: [ ] PROBLEM LIST: Acute systolic heart failure Acute multi-system organ failure Acute metabolic encephalopathy Severe metabolic acidosis Thrombocytopenia Cocaine abuse Hypoglycemia Diabetes type 2, non-insulin dependent INTERVAL HISTORY: Patient is critically ill, she remains acidotic despite continuous attempts at correction, she is now ABG Q 1 hour. Patient is getting overloaded, we will DC the bicarb drip and has converted to just pushes following the ABG. D5W discontinued we will put her on D10 at 40 to maintain sugars We are pending coags, following this we will consult Heme-Onc The Zyvox has been discontinued we will continue on Zosyn We have added lactulose 20 q.6 Vent settings remain 40% FiO2, peep of 5, really only organ system working. The remaining are in acute failure. Lengthy and numerous conversations with patient's family at bedside. They have been updated to patient's critical status. Family is discussing code status Patient now maxed on 4 pressors, levo, Laith, vaso and epi. Maps are in the upper 40s to low 50s. Plan: Patient critically ill We are following ABG Q hour We are avoiding any hypoglycemia Correcting patient's acidosis Following compensation consultant's recommendations, she is on antibiotics, Zyvox DC Lactulose for ammonia levels Following ID recs BMP Q 4 Glucose checks Total critical care time 138 minutes, time excludes any procedures performed, anytime we will spent with education. Patient is critically ill. 2:1 nursing. Constant medication adjustments Patient remains full code at this time REVIEW OF SYSTEMS: 12 point ROS reviewed with patient. Pertinent positives mentioned above. Otherwise negative. PHYSICAL EXAM: GENERAL: alert, weak, awake oriented x 3 HEENT: EOMI, Sclera non icteric, moist mucosa NECK: Supple, no JVD, trachea midline LUNGS: Clear breath sounds bilaterally. No wheezes HEART: Regular rate and rhythm. Normal S1 and S2, without murmurs ABD: Abdomen soft, nontender. Bowel sounds present EXT: No clubbing cyanosis or edema NEURO: Alert and oriented to person, follows commands Vital Signs (last 8hr) Date Time Temp Pulse Resp B/P (MAP) Pulse Ox O2 Delivery O2 Flow Rate FiO2 11/7/25 06:43 115 40 06/17/25 06:41 105 22 06/17/25 05:45 102 24 100/59 (73) 99 06/17/25 05:30 103 26 116/49 (71) 99 06/17/25 05:15 102 26 116/49 (71) 98 06/17/25 05:00 104 26 105/53 (70) 98 06/17/25 04:45 108 25 114/28 (56) 99 06/17/25 04:30 104 27 98 06/17/25 04:15 105 26 97 06/17/25 04:00 98 Ventilator+ 40 06/17/25 04:00 40 06/17/25 04:00 98.8 109 39 100/65 (77) 96 40 06/17/25 03:45 111 38 135/73 (93) 95 06/17/25 03:44 115 40 06/17/25 03:30 114 28 146/64 (91) 96 06/17/25 03:15 116 29 146/94 (111) 96 06/17/25 03:00 118 29 112/49 (70) 98 06/17/25 02:46 118 25 06/17/25 02:45 118 29 103/76 (85) 97 06/17/25 02:30 115 26 118/50 (72) 86 06/17/25 02:23 115 26 118/50 (72) 86 06/17/25 02:15 115 29 97/35 (55) 06/17/25 02:00 113 28 93/66 (75) 100 06/17/25 01:45 113 28 100 06/17/25 01:30 115 29 104/57 (73) 99 06/17/25 01:15 119 28 104/84 (91) 98 06/17/25 01:00 115 28 82/45 (57) 99 06/17/25 00:45 113 28 93/51 (65) 98 06/17/25 00:31 116 29 108/49 (68) 99 06/17/25 00:28 115 40 LABS: Hematology Labs: Test 06/17/25 03:48 06/16/25 03:52 Range/Units White Blood Count 23.4 H 4.8-10.8 K/uL Red Blood Count 3.73 #L 4.00-5.50 MIL/uL Hemoglobin 12.1 12.0-16.0 g/dL Hematocrit 38.0 # 36-48 % Mean Corpuscular Volume 101.9 H 79-99 fL Mean Corpuscular Hemoglobin 32.4 27.0-33.0 pg Mean Corpuscular Hemoglobin Concent 31.8 L 32.0-36.0 g/dL Red Cell Distribution Width 16.1 H 11.0-15.5 % Platelet Count 53 #L 130-400 K/uL Mean Platelet Volume 12.4 H 7.5-10.5 fL Immature Granulocyte % (Auto) 2.3 H 0-1 % Neutrophils (%) (Auto) 91.6 H 40.0-77.0 % Lymphocytes (%) (Auto) 3.2 L 21.0-51.0 % Monocytes (%) (Auto) 2.6 L 3.0-13.0 % Eosinophils (%) (Auto) 0.0 0.0-8.0 % Basophils (%) (Auto) 0.3 0.0-5.0 % Neutrophils # (Auto) 21.4 H 1.8-7.7 K/uL Lymphocytes # (Auto) 0.8 L 1.0-4.8 K/uL Monocytes # (Auto) 0.6 0.1-1.0 K/uL Eosinophils # (Auto) 0.00 0.00-0.70 K/uL Basophils # (Auto) 0.06 0.00-0.20 K/uL Absolute Immature Granulocyte (auto 0.55 0-1 K/uL Nucleated Red Blood Cells 4.1 H 0.0-0.19 % White Cell Morphology Comment See comments Segmented Neutrophils % 91 H 40-70 % Lymphocytes % (Manual) 3 L 22-44 % Monocytes % (Manual) 5 2-9 % Differential Comment MANUAL DIFFERENTIAL Reactive Lymphocytes 1 H 0-0 % Platelet Morphology Comment ADEQUATE Red Blood Cell Morphology ANISO 1+ Chemistry Labs: Test 06/17/25 06:49 06/17/25 03:48 06/17/25 02:38 06/17/25 00:25 Range/Units Whole Blood Glucose 258 #H 70-110 MG/DL Sodium Level 149 H 136-145 mmol/L Potassium Level 4.9 3.5-5.1 mmol/L Chloride Level 99 L 101-111 mmol/L Carbon Dioxide Level 14 L 21-32 mmol/L Blood Urea Nitrogen 33 H 7-18 mg/dL Creatinine 6.8 H 0.5-1.0 mg/dL Glomerular Filtration Rate Calc 8 >90 mL/min Random Glucose 197 #H 70-105 mg/dL Total Calcium 6.4 L 8.5-10.1 mg/dL Phosphorus Level 9.3 #H 2.5-4.9 mg/dL Magnesium Level 2.10 1.80-2.40 mg/dL Total Bilirubin 2.9 #H 0.2-1.0 mg/dL Aspartate Amino Transf (AST/SGOT) 47299 *H 10-37 U/L Alanine Aminotransferase (ALT/SGPT) 34948 *H 12-78 U/L Alkaline Phosphatase 184 H 50-136 U/L Total Protein 4.0 L 6.0-8.3 g/dL Albumin 1.6 L 3.5-5.0 g/dL Ionized Calcium 0.64 *L 1.15-1.33 MMOL/L Troponin I High Sensitivity 1532 *H 4-50 ng/L Test 06/16/25 18:32 06/16/25 12:48 06/16/25 03:52 06/15/25 22:39 Range/Units Bedside Glucose Comment Notified Nurse Bedside Glucose #2 Comment Protocol Initiated Total Creatine Kinase 28275 #*H 21-232 U/L Lactic Acid Level 5.5 H 0.8-2.5 mmol/L B-Type Natriuretic Peptide 50 0-100 pg/mL Serum Test, Qualitative NEGATIVE NEGATIVE Procalcitonin 1.37 H 0.05-0.5 ng/mL Test 06/15/25 17:49 Range/Units Triglycerides Level 232 H 30-200 mg/dL Cholesterol Level 169 <200 mg/dL LDL Cholesterol 90 0-99 mg/dL HDL Cholesterol 48 35-85 mg/dL Coagulation Labs: Test 06/15/25 17:49 Range/Units Prothrombin Time 10.5 9.6-11.6 SEC Prothromb Time International Ratio 0.99 0.85-1.15 Activated Partial Thromboplast Time 21.8 L 26.3-35.5 SEC DIAGNOSTICS / RADIOLOGY RESULTS: [ ] PLAN NEURO: Minimize central acting medications as possible. Fall Precautions. Well lighted room through the day and minimize interruptions through the night to prevent acute delirium. PULMONARY: Supplemental 02 as needed Titrate Fio2 to keep Spo2 > or = 90% DuoNebs and CPT as needed IS hourly while awake for pulmonary hygiene Out of bed to chair as tolerated VAP Bundle Vent/BIPAP Settings: [ ] Driving pressure: [ ] P Plat: [ ] Static C: [ ] Static R: [ ] P/F Ratio: [ ] CARDIOVASCULAR: Follow hemodynamics. Titrate vasopressor to keep MAP >65 or systolic blood pressure >95mmHg DIPS: [ ] LINES: [ ] GI & NUTRITION: Continue nutritional support Aspirations precautions Prokinetic agents and laxatives as needed KIDNEYS & ELECTROLYTES: Strict monitoring of intake and output Daily weights Avoid nephrotoxic agents Monitor electrolytes and replace as needed Goal urine output of 30mL/hr or 0.5mL/kg/hr Urine output: [ ] Fluid Balance: [ ] ENDOCRINE: Maintain blood glucose between 100-180 at all times. Insulin sliding scale for blood glucose management INFECTIOUS DISEASE: Trend temperature. Mae-culture if febrile. Micro: [ ] Antibiotics: [ ] HEMATOLOGY & COAGULATION: Monitor H&H. Keep Hgb > 7 Transfuse 1 unit of PRBC for Hgb < 7 Transfuse 1 pack of platelets of platelets < 20, 000 Watch for any signs and symptoms of bleeding SKIN: Pressure ulcer prevention per facility protocol Rehab: PT/OT Prophylaxis: GI: [ ] DVT: [ ] Code Status: Full Resuscitation Disposition: [ ] Case was discussed and seen with my supervising physician. The above plan was formulated and agreed upon. Total critical care time 138 minutes, time excludes any procedures performed, anytime we will spent with education. Patient is critically ill. 2:1 nursing. Constant medication adjustments Patient remains full code at this time QUINCY SANTOS PAC Jun 17, 2025 08:17 DA SAENZ MD Jun 18, 2025 07:21
[2025-06-17] MEDS: NOREPINEPHRINE BITARTRATE 32 MG in 0.9% NACL 250ML 250 ML IV SCH (08:41)
[2025-06-17 08:50] LABS: ABG BASE EXCESS -23.7 mmol/L (-2.0-3.0); ABG HCO3 5.7 mmol/L (21.0-28.0); ABG OXYGEN SATURATION 95.2 % (94.0-98.0); ABG PCO2 23 mmHg (32-45); ABG PH 7.015 (7.350-7.450); CARBON MONOXIDE 0.3 % (0.5-1.5); PO2, ARTERIAL BG 108.4 mmHg (83.0-108.0); TEMPERATURE, CELSIUS BG 37.0 CELSIUS (35.5-37.0); VENT MODE, BG AC (ROOM AIR)
--- NOTE | 2025-06-17 08:56 | HMCIMG ---
EXAM: CR Chest,2 Views. CLINICAL HISTORY: Intubated COMPARISON: Chest x-ray dated 06/15/2025 FINDINGS: Interval repositioning of the endotracheal tube, with the tip of the endotracheal tube approximately 3.6 cm above the level of the kay. Consistent with optimal position. Nasogastric tube in situ with its tip in the stomach. LUNGS: Mild to moderate pulmonary venous congestion in bilateral lung berumen. PLEURAL SPACES: No pneumothorax. Minimal left pleural effusion. MEDIASTINUM: The cardiomediastinal silhouette appears enlarged. BONES: No acute osseous abnormality. IMPRESSION: Interval repositioning of the endotracheal tube, with the tip of the endotracheal tube in the optimal position. Nasogastric tube in situ with its tip in the stomach. Mild to moderate bilateral pulmonary venous congestion with minimal bilateral pleural effusion. No significant interval change. Enlarged cardiomediastinal silhouette. /[place]
--- NOTE | 2025-06-17 09:17 | HMCIMG ---
EXAM: US Abdomen, Right Upper Quadrant. CLINICAL HISTORY: Transaminitis. TECHNIQUE: Right upper quadrant sonography performed with image documentation. COMPARISON: None provided. FINDINGS: The study is limited due to intubation, large body habitus, and intestinal air. Liver: The liver is enlarged, measuring 18.5 cm in craniocaudal span. There is diffuse fatty infiltration noted. No focal hepatic lesions identified. Intrahepatic biliary ducts are not dilated. Gallbladder: The gallbladder wall is thickened, measuring 5 mm. No gallstones or pericholecystic fluid are seen. The gallbladder lumen is unremarkable. Biliary Tree: The common bile duct is obscured due to technical limitations. No biliary dilatation is visualized. Pancreas: The pancreas is normal in size and signal intensity. No mass, cyst, or abnormality detected. Kidneys: The right kidney measures 11.3 x 5 x 6.1 cm, normal in size and shape. No focal lesion, hydronephrosis, or renal calculi were seen. Bowel: intestinal air is seen. No evidence of bowel obstruction or mass. The remainder of the bowel loops are unremarkable. IMPRESSION: Hepatomegaly with steatosis. Diffuse gallbladder wall thickening, likely related to liver parenchymal disease. /[place]
[2025-06-17 10:26] LABS: ABG BASE EXCESS -17.5 mmol/L (-2.0-3.0); ABG HCO3 8.3 mmol/L (21.0-28.0); ABG OXYGEN SATURATION 92.5 % (94.0-98.0); ABG PCO2 20 mmHg (32-45); ABG PH 7.233 (7.350-7.450); CARBON MONOXIDE 0.1 % (0.5-1.5); PO2, ARTERIAL BG 81.9 mmHg (83.0-108.0); TEMPERATURE, CELSIUS BG 37.0 CELSIUS (35.5-37.0); VENT MODE, BG AC (ROOM AIR)
--- NOTE | 2025-06-17 10:53 | NUR ---
DCP:PENDING MARIANNE spoke with mom Radhika Peña [phone] who was at bedside. Pt is currently intubated. Mother states that pt currently lives with "her partner/common law ". Prior to coming into the hospital the pt did not use any DME, home health, or provider services. Mom states that prior to her daughter coming into the hospital she was unaware that her daughter uses illegal substances. Mother stated that other family members told her that the pt "smoked something". Mother states that pt would go to [facility] to manage her diabetes and used [facility] for any RX needs. At [place] plan is pending, mom would want to take pt home and other family members feel she may need a SNF.
--- NOTE | 2025-06-17 11:29 | PN ---
[facility] PROGRESS NOTE Date of Service: Jun 17, 2025 Time of Service: : SUBJECTIVE: 06/16 patient has been seen and examined at bedside, case discussed with the RN. Patient admitted to the intensive care unit, the time of my visit she is intubated, mechanical ventilation, on Versed, propofol, vasopressin for blood pressure support, she is getting broad-spectrum IV antibiotics. Blood pressure 109/50, heart rate of 160, patient with temperature 100.2. CBC shows a WBC of 3.2. Toxicology screen positive for cocaine. ABG with pH of 7.27, pCO2 of 32, bicarb of 14.5. Sputum g stain positive cocci in clusters and chains. Chest x- ray shows endotracheal tube tip 1.4 cm above kay, consider retracting, multifocal left lung airspace disease possibly infectious or inflammatory, small left pleural effusion, mild cardiomegaly with mild central pulmonary vascular congestion. No acute intracranial abnormality noted. 06/17 patient is seen and examined at bedside, discussed with the RN, remains admitted to the intensive care unit, intubated, mechanical ventilation. Blood pressure 100/59, heart rate of 107, temperature 97.7, saturating 99%, FiO2 40%. CBC with a hemoglobin 12.1, hematocrit 38.0, WBC 23.4, with a platelet count of 53. CMP shows a sodium 139, potassium 4.9, BUN of 33, creatinine 6.8, carbon dioxide of 14. Blood glucose 258. Liver enzymes with a total bilirubin of 2.9[place] [address] [address], alkaline phosphatase 184. Troponin 1532. ABG done earlier this morning, pH 6.9, pCO2 39, PO2 less than 45, with a bicarbonate of 7.9. Wound culture positive for Gram-positive cocci, said to of two. Identification and susceptibility to follow up. Sputum g stain positive for Gram-positive cocci in chains and clusters. Respiratory culture pending. Abdominal ultrasound showing hepatomegaly with steatosis, diffuse gallbladder wall thickening likely related to liver parenchymal disease. Renal ultrasound no acute abnormality evident, no hydronephrosis. Echocardiogram shows LVEF 40- 45% with a indeterminate diastolic dysfunction. Just ultrasound no pleural or pericardial effusion. The patient will remain admitted to the ICU, remains in tubated on mechanical ventilation, continue blood pressure support with a vasopressin, continue broad-spectrum IV antibiotics, follow results of blood culture and adjust antibiotics accordingly. The patient is started on sodium bicarbonate drip. Continue Levophed as well. Continue to follow critical care input and recommendation. The patient with severe transaminitis, possible shock liver, however we will request acetaminophen and salicylate level. GI consultation requested, we will follow input and recommendation. Acute hepatitis panel requested as well. Prognosis of This patient is guarded. REVIEW OF SYSTEMS CONSTITUTIONAL: Denies fevers, chills, or night sweats. No unintentional weight loss reported. NEUROLOGICAL: Denies headache, amaurosis fugax, motor weakness, sensory deficit, vertigo/spinning sensation, gait abnormalities, or tremors. ENT: No hearing loss, otalgia, otorrhea, rhinitis, rhinorrhea, hoarseness, or sore throat. CARDIOVASCULAR: Denies any exertional angina, dyspnea on exertion, orthopnea, paroxysmal nocturnal dyspnea, palpitations, life-threatening arrhythmias, claudication. PULMONARY: Denies any shortness of breath, cough, phlegm/sputum, hemoptysis, pleuritic chest pain. SLEEP: Denies morning headaches, daytime somnolence or napping. Denies difficulty falling asleep, staying asleep, waking from sleep. Denies knowledge of snoring. GASTROINTESTINAL: Denies any type of dysphagia to either liquids or solids. Denies nausea, vomiting, pyrosis, early satiety, abdominal pain, diarrhea, constipation, or changes in stool consistency or caliber. Denies coffee-ground emesis, hematemesis, hematochezia, or melanotic stools. GENITOURINARY: Denies frequency, urgency, nocturia, hematuria or incontinence (Storage/Irritative symptoms.) Low urinary stream, straining to void, urinary intermittency or hesitancy, splitting of the voiding stream, terminal dribbling. ENDOCRINOLOGIC: Denies polyuria, polydipsia, polyphagia or heat/cold intolerances. HEMATOLOGIC: Denies thrombophilia/previous clots, or coagulopathy/bleeding disorders. ONCOLOGIC: Denies personal history of malignancy. DERMATOLOGIC: Denies rashes or pruritus. PSYCHIATRIC: Denies any suicidal or homicidal ideation. Denies hallucinations. PHYSICAL EXAM GENERAL APPEARANCE: The patient is currently intubated, mechanical ventilation. NEUROLOGICAL: Cranial nerves II-XII grossly intact. Motor is 5/5 in bilateral upper and lower extremities proximal to distal. No sensory deficits. HEENT: Face is symmetric. Pupils are equal and reactive. Extraocular movements are intact. NECK: Supple. No JVD. No thyromegaly. No submental, submandibular, pre- /postauricular, occipital or supraclavicular lymphadenopathy. CHEST: Normal chest expansion. No Telemetry. LUNGS: Absence of any rales, rhonchi or any wheezing. CARDIOVASCULAR: Regular. S1 and S2 normal. No appreciable rubs, murmurs or gallops. ABDOMEN: Soft, nontender, and nondistended. There is no rebound, voluntary guarding, or rigidity. : Deferred. No Juarez. EXTREMITIES: Non-edematous and not cyanotic. No clubbing. Good capillary refill. SKIN: No skin breakdown. Vital Signs (last 8hr) Date Time Temp Pulse Resp B/P (MAP) Pulse Ox O2 Delivery O2 Flow Rate FiO2 06/17/25 09:35 107 40 06/17/25 08:41 100/59 06/17/25 08:00 97.7 06/17/25 08:00 40 06/17/25 06:43 115 40 06/17/25 06:41 105 22 06/17/25 05:45 102 24 100/59 (73) 99 06/17/25 05:30 103 26 116/49 (71) 99 06/17/25 05:15 102 26 116/49 (71) 98 06/17/25 05:00 104 26 105/53 (70) 98 06/17/25 04:45 108 25 114/28 (56) 99 06/17/25 04:30 104 27 98 06/17/25 04:15 105 26 97 06/17/25 04:00 98 Ventilator+ 40 06/17/25 04:00 40 06/17/25 04:00 98.8 109 39 100/65 (77) 96 40 06/17/25 03:45 111 38 135/73 (93) 95 06/17/25 03:44 115 40 06/17/25 03:30 114 28 146/64 (91) 96 LABS: Laboratory: Test 06/17/25 10:23 06/17/25 08:47 06/17/25 06:49 06/17/25 05:20 Range/Units Blood Gas Specimen Type Arterial Arterial Blood pH 7.233 L 7.350-7.450 Arterial Blood Partial Pressure CO2 20 *L 32-45 mmHg Arterial Blood Partial Pressure O2 81.9 L 83.0-108.0 mmHg Arterial Blood HCO3 8.3 L 21.0-28.0 mmol/L Arterial Blood Oxygen Saturation 92.5 L 94.0-98.0 % Arterial Blood Base Excess -17.5 L -2.0-3.0 mmol/L Hemoglobin (Blood Gas) 7.0 #*L 12.0-16.0 g/dL Sodium (Blood Gas) 142 136-145 MMOL/L Bedside Potassium (Blood Gas) 3.6 3.4-4.5 MMOL/L Bedside Chloride (Blood Gas) 106 98-107 MMOL/L Bedside Glucose (Blood Gas) 216 H 65-95 MG/DL Bedside Ionized Calcium (Blood Gas) 0.58 L 1.15-1.33 MMOL/L Bedside Lactic Acid (Blood Gas) > 22.00 *H 0.36-0.75 MMOL/L Blood Gas Temperature 37.0 35.5-37.0 CELSIUS Blood Gas Respiration Rate 20.0 min. Blood Gas Vent Mode AC ROOM AIR FiO2 40.0 % Blood Gas Tidal Volume 500 ml Blood Gas PEEP 5 cm H2O Blood Gas Specimen Comment VITOR WALTERS,RN Ammonia 90 H 11-32 umol/L Whole Blood Glucose 258 #H 70-110 MG/DL Urine Random Creatinine 125.97 30-135 mg/dL Urine Random Sodium 55 40-220 mmol/l Urine Random Potassium 69 25-125 mmol/L Urine Random Chloride 52 L 110-250 mmol/L Test 06/17/25 03:48 06/17/25 02:38 06/17/25 00:25 06/16/25 18:32 Range/Units White Blood Count 23.4 H 4.8-10.8 K/uL Red Blood Count 3.73 #L 4.00-5.50 MIL/uL Hemoglobin 12.1 12.0-16.0 g/dL Hematocrit 38.0 # 36-48 % Mean Corpuscular Volume 101.9 H 79-99 fL Mean Corpuscular Hemoglobin 32.4 27.0-33.0 pg Mean Corpuscular Hemoglobin Concent 31.8 L 32.0-36.0 g/dL Red Cell Distribution Width 16.1 H 11.0-15.5 % Platelet Count 53 #L 130-400 K/uL Mean Platelet Volume 12.4 H 7.5-10.5 fL Immature Granulocyte % (Auto) 2.3 H 0-1 % Neutrophils (%) (Auto) 91.6 H 40.0-77.0 % Lymphocytes (%) (Auto) 3.2 L 21.0-51.0 % Monocytes (%) (Auto) 2.6 L 3.0-13.0 % Eosinophils (%) (Auto) 0.0 0.0-8.0 % Basophils (%) (Auto) 0.3 0.0-5.0 % Neutrophils # (Auto) 21.4 H 1.8-7.7 K/uL Lymphocytes # (Auto) 0.8 L 1.0-4.8 K/uL Monocytes # (Auto) 0.6 0.1-1.0 K/uL Eosinophils # (Auto) 0.00 0.00-0.70 K/uL Basophils # (Auto) 0.06 0.00-0.20 K/uL Absolute Immature Granulocyte (auto 0.55 0-1 K/uL Nucleated Red Blood Cells 4.1 H 0.0-0.19 % White Cell Morphology Comment See comments Sodium Level 149 H 136-145 mmol/L Potassium Level 4.9 3.5-5.1 mmol/L Chloride Level 99 L 101-111 mmol/L Carbon Dioxide Level 14 L 21-32 mmol/L Blood Urea Nitrogen 33 H 7-18 mg/dL Creatinine 6.8 H 0.5-1.0 mg/dL Glomerular Filtration Rate Calc 8 >90 mL/min Random Glucose 197 #H 70-105 mg/dL Total Calcium 6.4 L 8.5-10.1 mg/dL Phosphorus Level 9.3 #H 2.5-4.9 mg/dL Magnesium Level 2.10 1.80-2.40 mg/dL Total Bilirubin 2.9 #H 0.2-1.0 mg/dL Aspartate Amino Transf (AST/SGOT) 61298 *H 10-37 U/L Alanine Aminotransferase (ALT/SGPT) 36938 *H 12-78 U/L Alkaline Phosphatase 184 H 50-136 U/L Total Protein 4.0 L 6.0-8.3 g/dL Albumin 1.6 L 3.5-5.0 g/dL Ionized Calcium 0.64 *L 1.15-1.33 MMOL/L Troponin I High Sensitivity 1532 *H 4-50 ng/L Bedside Glucose Comment Notified Nurse Bedside Glucose #2 Comment Protocol Initiated Test 06/16/25 12:48 06/16/25 03:52 06/15/25 22:39 06/15/25 18:14 Range/Units Total Creatine Kinase 39708 #*H 21-232 U/L Segmented Neutrophils % 91 H 40-70 % Lymphocytes % (Manual) 3 L 22-44 % Monocytes % (Manual) 5 2-9 % Differential Comment MANUAL DIFFERENTIAL Reactive Lymphocytes 1 H 0-0 % Platelet Morphology Comment ADEQUATE Red Blood Cell Morphology ANISO 1+ Lactic Acid Level 5.5 H 0.8-2.5 mmol/L B-Type Natriuretic Peptide 50 0-100 pg/mL Serum Test, Qualitative NEGATIVE NEGATIVE Procalcitonin 1.37 H 0.05-0.5 ng/mL Urine Color LIGHT-YELLOW YELLOW Urine Appearance CLEAR CLEAR Urine pH 6.0 5.0-8.0 Urine Specific Emerson 1.012 1.001-1.031 Urine Protein NEGATIVE NEGATIVE mg/dL Urine Glucose (UA) NEGATIVE NEGATIVE mg/dL Urine Ketones NEGATIVE NEGATIVE mg/dL Urine Occult Blood NEGATIVE NEGATIVE Urine Nitrate NEGATIVE NEGATIVE Urine Bilirubin NEGATIVE NEGATIVE mg/dL Urine Urobilinogen 0.2 0.2-1.0 mg/dL Urine Leukocyte Esterase NEGATIVE NEGATIVE Francia/uL Urine Osmolality 463 50-1200 mOsm/kg Urine Opiates Screen NEGATIVE NEGATIVE Urine Barbiturates Screen NEGATIVE NEGATIVE Urine Phencyclidine Screen NEGATIVE NEGATIVE Urine Amphetamines Screen NEGATIVE NEGATIVE Urine Benzodiazepines Screen NEGATIVE NEGATIVE Urine Cocaine Screen POSITIVE H NEGATIVE Urine Marijuana (THC) Screen NEGATIVE NEGATIVE Test 06/15/25 17:49 Range/Units Prothrombin Time 10.5 9.6-11.6 SEC Prothromb Time International Ratio 0.99 0.85-1.15 Activated Partial Thromboplast Time 21.8 L 26.3-35.5 SEC Triglycerides Level 232 H 30-200 mg/dL Cholesterol Level 169 <200 mg/dL LDL Cholesterol 90 0-99 mg/dL HDL Cholesterol 48 35-85 mg/dL Current Medications Medications (Trade) Dose Ordered Sig/Sandra Route PRN Reason Start Time Stop Time Status Last Admin Dose Admin Acetaminophen (TYLenol 650MG SUPPOSITORY) 650 mg Q6H PRN RC MILD PAIN (1-3) IF NPO 06/15/25 21:30 11/7/25 10:57 DC 06/16/25 07:30 650 MG Acetaminophen (TYLenol 650MG SUPPOSITORY) 650 mg Q6H PRN RC MILD PAIN (1-3) 06/15/25 22:00 06/15/25 22:04 DC Albuterol (DUOneb) 1 UDVIAL F0PEMPT IH 06/16/25 00:00 07/16/25 00:00 06/17/25 11:14 1 UDVIAL Albuterol Sulfate (Proventil 0.083% 2.5mg/3ml) 10 mg ONCE STAT IH 06/17/25 02:11 06/17/25 02:29 DC 06/17/25 02:45 10 MG Calcium Gluconate (Calcium Gluc 1gm Vial) 1 gm ONCE STAT IV 06/17/25 02:11 06/17/25 02:27 DC 06/17/25 02:49 1 GM Dextrose (D50w) 50 ml AD PRN IV HYPOGLYCEMIA PROTOCOL 06/16/25 19:00 07/16/25 18:59 06/16/25 18:41 50 ML Dextrose/Lactated Ringer's 1,000 ml @ 100 mls/hr Q10H IV 06/16/25 20:00 07/16/25 19:59 06/17/25 08:38 100 MLS/HR Famotidine (Pepcid 20mg Vial) 20 mg DAILY IV 06/16/25 09:00 07/16/25 08:59 06/17/25 08:38 20 MG Fentanyl Citrate 100 ml @ 0 mls/hr PROTOCOL IV 06/15/25 18:00 06/22/25 17:59 06/17/25 09:44 10 MLS/HR Glucagon (Glucagon 1mg Kit) 1 mg AD PRN IM HYPOGLYCEMIA PROTOCOL 06/16/25 19:00 07/16/25 18:59 Guaifenesin (RobiTUSSin SUGAR-FREE 100 MG/ 5 ML UDCUP) 400 mg Q4H PRN PO cough 06/16/25 00:00 07/16/25 00:00 Heparin Sodium (Porcine) (HEParin 5,000 UNIT VIAL) 5,000 unit Q12H SQ 06/16/25 09:00 06/16/25 13:29 DC 06/16/25 09:29 5,000 UNIT Heparin Sodium/ Dextrose 250 ml @ 0 mls/hr PROTOCOL IV 06/16/25 13:30 06/16/25 14:02 DC Hydromorphone HCl (DiLAUDid 0.5MG INJ) 0.25 mg Q4H PRN IVP SEVERE PAIN (7-10) 06/15/25 22:00 06/20/25 21:59 Insulin Human Regular (humuLIN R 100 UNIT/ML 3ML) 5 unit ONCE STAT IV 06/17/25 02:19 06/17/25 02:29 DC 06/17/25 02:44 5 UNIT Insulin Human Regular (humuLIN R 100 UNIT/ML 3ML) INSULIN SLIDING SCAL... Q6H6 SQ 06/16/25 00:00 07/16/25 00:00 Lactated Ringer's 1,000 ml @ 75 mls/hr [id number] IV 06/15/25 22:00 06/16/25 11:58 DC 06/16/25 10:26 75 MLS/HR Lactated Ringer's 1,000 ml @ 100 mls/hr Q10H IV 06/16/25 13:30 06/16/25 19:53 DC 06/16/25 13:34 100 MLS/HR Lactated Ringer's (Lactated Ringers 1000ml) 1,000 ml ONCE IV 06/16/25 04:30 06/16/25 04:22 DC Linezolid 300 ml @ 150 mls/hr Q12H IV 06/17/25 02:30 06/17/25 16:29 06/17/25 02:45 150 MLS/HR Magnesium Sulfate 50 ml @ 0 mls/hr PROTOCOL PRN IV h 06/15/25 22:00 07/15/25 21:59 Methylprednisolone Sodium Succinate (Solu-medROL 40MG) 50 mg Q6H IVP 06/16/25 12:00 07/16/25 11:59 06/17/25 05:35 50 MG Midazolam HCl 50 ml @ 0 mls/hr PROTOCOL IV 06/15/25 18:00 06/22/25 17:59 06/16/25 07:23 10 MLS/HR Norepinephrine 250 ml @ 0 mls/hr PROTOCOL IV 06/15/25 19:00 06/16/25 06:15 DC 06/16/25 05:04 115.8 MLS/HR Norepinephrine Bitartrate (Norepineph 16 Mg/250ml NS Premix) follow protocol PROTOCOL IV 06/16/25 06:30 06/16/25 23:12 DC Norepinephrine Bitartrate 32 mg/ Sodium Chloride 250 ml @ 0 mls/hr Q0M IV 06/16/25 23:30 07/16/25 23:29 06/17/25 08:41 33.8 MLS/HR Ondansetron HCl (zoFRAN 4MG INJ) 4 mg Q6H PRN IV NAUSEA/VOMITING 06/15/25 22:00 07/15/25 21:59 Pantoprazole Sodium (PROTonix 40MG INJ) 40 mg DAILY IV 06/16/25 09:00 06/15/25 22:23 DC Phenylephrine HCl 100 mg/Sodium Chloride 250 ml @ 0 mls/hr PROTOCOL IV 06/16/25 14:00 07/16/25 13:59 06/17/25 06:42 77 MLS/HR Piperacillin Sod/ Tazobactam Sod (Zosyn 3.375gm+NS 50ml) 3.375 gm Q8H IV 06/15/25 22:00 06/25/25 21:59 06/17/25 05:35 3.375 GM Potassium Chloride 100 ml @ 50 mls/hr AD PRN IV POTASSIUM PROTOCOL 06/15/25 22:00 07/15/25 21:59 06/16/25 09:25 50 MLS/HR Propofol 100 ml @ 0 mls/hr PROTOCOL IV 06/15/25 19:00 07/15/25 18:59 Sodium Bicarbonate 150 meq/Dextrose 1,000 ml @ 150 mls/hr Q6H40M IV 06/16/25 04:30 06/16/25 10:22 DC 06/16/25 05:03 150 MLS/HR Sodium Bicarbonate 150 meq/Dextrose 1,000 ml @ 150 mls/hr Q6H40M IVP 06/17/25 02:00 07/16/25 11:59 06/17/25 08:40 150 MLS/HR Sodium Bicarbonate 150 meq/Dextrose 1,150 ml @ 150 mls/hr Q7H40M IVP 06/16/25 12:00 06/17/25 01:55 DC 06/16/25 20:17 150 MLS/HR Sodium Bicarbonate (Sodium Bicarb 50meq 50ml Vial) 50 meq ONCE STAT IV 06/17/25 04:52 06/17/25 04:56 DC 06/17/25 05:03 50 MEQ Sodium Bicarbonate (Sodium Bicarb 50meq 50ml Vial) 200 meq ONCE STAT IV 06/17/25 09:01 06/17/25 09:05 DC 06/17/25 09:45 200 MEQ Vasopressin 20 units/Sodium Chloride 100 ml @ 0 mls/hr PROTOCOL IV 06/16/25 06:00 06/17/25 04:28 DC 06/17/25 02:52 9 MLS/HR Vasopressin 20 units/Sodium Chloride 100 ml @ 0 mls/hr PROTOCOL IV 06/17/25 04:30 07/17/25 04:29 DIAGNOSTICS / RADIOLOGY: [ ] ASSESSMENT: Septic shock, POA Pneumonia, POA Leukocytosis, POA Metabolic encephalopathy, POA Uncontrolled Diabetes mellitius type2, POA Acute kidney injury, POA, on 10/01/2023 creatinine 0.9, today it is 1.3 Left pleural effusion Hypertension Cocaine abuse Transaminitis, possible shock liver PLAN: patient is seen and examined at bedside, discussed with the RN, remains admitted to the intensive care unit, intubated, mechanical ventilation. Blood pressure 100/59, heart rate of 107, temperature 97.7, saturating 99%, FiO2 40%. CBC with a hemoglobin 12.1, hematocrit 38.0, WBC 23.4, with a platelet count of 53. CMP shows a sodium 139, potassium 4.9, BUN of 33, creatinine 6.8, carbon dioxide of 14. Blood glucose 258. Liver enzymes with a total bilirubin of 2.9[place] [address] [address], alkaline phosphatase 184. Troponin 1532. ABG done earlier this morning, pH 6.9, pCO2 39, PO2 less than 45, with a bicarbonate of 7.9. Wound culture positive for Gram-positive cocci, said to of two. Identification and susceptibility to follow up. Sputum g stain positive for Gram-positive cocci in chains and clusters. Respiratory culture pending. Abdominal ultrasound showing hepatomegaly with steatosis, diffuse gallbladder wall thickening likely related to liver parenchymal disease. Renal ultrasound no acute abnormality evident, no hydronephrosis. Echocardiogram shows LVEF 40-45% with a indeterminate diastolic dysfunction. Just ultrasound no pleural or pericardial effusion. The patient will remain admitted to the ICU, remains intubated on mechanical ventilation, continue blood pressure support with a vasopressin, continue broad-spectrum IV antibiotics, follow results of blood culture and adjust antibiotics accordingly. The patient is started on sodium bicarbonate drip. Continue Levophed as well. Continue to follow critical care input and recommendation. The patient with severe transaminitis, possible shock liver, however we will request acetaminophen and salicylate level. GI consultation requested, we will follow input and recommendation. Acute hepatitis panel requested as well. Prognosis of This patient is guarded. NEURO: Minimize central acting medications as possible. Fall Precautions. Well lighted room through the day and minimize interruptions through the night to prevent acute delirium. PULMONARY: Supplemental 02 as needed BiPAP as necessary, for respiratory distress Titrate Fio2 to keep Spo2 > or = 90% DuoNebs and CPT as needed IS hourly while awake for pulmonary hygiene prn Out of bed to chair as tolerated Maintain aspiration precautions at all times CARDIOVASCULAR: Follow hemodynamics. Vital signs per facility protocol GI & NUTRITION: Continue nutritional support Aspirations precautions Prokinetic agents and laxatives as needed KIDNEYS & ELECTROLYTES: Strict monitoring of intake and output Daily weights Avoid nephrotoxic agents Monitor electrolytes and replace as needed Goal urine output of 30mL/hr or 0.5mL/kg/hr Medications to be dosed according to renal function. Avoid contrast if possible ENDOCRINE: Maintain blood glucose between 100-180 at all times. Insulin sliding scale for blood glucose management Hypoglycemia and hyperglycemia protocol in place INFECTIOUS DISEASE: Trend temperature, WBC and procalcitonin level Follow cultures, deescalate antibiotics as soon as possible. Panculture if new onset fever HEMATOLOGY & COAGULATION: Monitor H&H. Keep Hgb > 7 Transfuse 1 unit of PRBC for Hgb < 7 Transfuse 1 pack of platelets of platelets < 20, 000 Watch for any signs and symptoms of bleeding SKIN: Pressure ulcer prevention per facility protocol Specialty mattress as needed ORTHO/REHAB Continue PT/OT PRN: MEDICATIONS Tylenol 650 mg po every 4 hrs for fever zofran 4 mg IV every 6 hrs for n/v Hydralazine 5 mg IV every 4 hrs systolic pressure > 160 bowel regiment: lactulose 20 gm PO BID PRN constipation Supportive measures: Continue GI and DVT prophylaxis Disposition: Pending improvement in clinical condition All questions answered time spent: > 35 min TRINH MALIN MD 7, 2025 11:29
[2025-06-17] MEDS ORDERED: PHARMACY COMMUNICATION MISC SCH (12:00)
[2025-06-17] MEDS: VASOpressin 20 UNITS/ML 1ML Vi 20 UNITS in 0.9%NACL 100ML 100 ML IV SCH (12:04)
--- NOTE | 2025-06-17 13:21 | PRN ---
This is a procedure note. Procedure performed: 1. Arterial line insertion. 2. Intraoperative Ultrasound Site: Left axillary Description of procedure: Consent obatined. Consent waived, procedure performed emergently. Hand hygiene. Time out done. Chlorhexidine was used to prepare the skin. Intraoperative US was used to localize vascular structure and intra-arterial access of guidewire. Arterial line inserted with Seldinger technique on site specified above. Line secured at the hub. Patient tolerated procedure well. No immediate complications. Indication: Need for invasive blood pressure management, patient on 4 pressors Diagnosis: Acute systolic heart failure QUINCY SANTOS PAC Jun 17, 2025 13:21
[2025-06-17 13:26] LABS: ABG BASE EXCESS -16.0 mmol/L (-2.0-3.0); ABG HCO3 10.3 mmol/L (21.0-28.0); ABG OXYGEN SATURATION 91.3 % (94.0-98.0); ABG PCO2 26 mmHg (32-45); ABG PH 7.216 (7.350-7.450); CARBON MONOXIDE 0.2 % (0.5-1.5); PO2, ARTERIAL BG 80.9 mmHg (83.0-108.0); TEMPERATURE, CELSIUS BG 37.0 CELSIUS (35.5-37.0); VENT MODE, BG AC (ROOM AIR)
[2025-06-17] MEDS: daptoMYCin 500MG/vial 500 MG in 0.9%NACL 50ML 50 ML IV SCH (13:32)
--- NOTE | 2025-06-17 14:10 | NUR ---
[facility] ICU Skin Assessment: Unable to assess at this time. Per primary nurse, patient with no wounds or skin breakdown noted. Recommendations provided to primary nurse. Education provided.
[2025-06-17 16:04] LABS: IMMATURE GRANULOCYTE ABSOLUTE 0.61 K/uL (0-1); NUCLEATED RED BLOOD CELLS 2.4 % (0.0-0.19); PLATELET COUNT (AUTO) 14 K/uL (130-400); RED BLOOD CELL COUNT(AUTO) 2.01 MIL/uL (4.00-5.50); RED CELL DISTRIBUTION WIDTH 16.2 % (11.0-15.5); WHITE BLOOD COUNT (AUTO) 16.5 K/uL (4.8-10.8)
[2025-06-17 16:10] LABS: ABG BASE EXCESS -16.2 mmol/L (-2.0-3.0); ABG HCO3 10.1 mmol/L (21.0-28.0); ABG OXYGEN SATURATION 92.7 % (94.0-98.0); ABG PCO2 26 mmHg (32-45); ABG PH 7.213 (7.350-7.450); CARBON MONOXIDE 0.9 % (0.5-1.5); PO2, ARTERIAL BG 90.5 mmHg (83.0-108.0); TEMPERATURE, CELSIUS BG 37.0 CELSIUS (35.5-37.0); VENT MODE, BG AC (ROOM AIR)
[2025-06-17 16:22] LABS: GLOMERULAR FILTR. RATE CALC 6.0 mL/min (>90); GLUCOSE,RANDOM 207.0 mg/dL (70-105); TOTAL PROTEIN, SERUM 2.5 g/dL (6.0-8.3); UREA NITROGEN, BLOOD 33.0 mg/dL (7-18)
[2025-06-17 16:26] LABS: CREATININE 8.1 mg/dL (0.5-1.0); SODIUM SERUM 162.0 mmol/L (136-145)
--- NOTE | 2025-06-17 16:27 | CONS ---
NEPHROLOGY CONSULTATION NOTE Date/Time Patient Seen: Jun 17, 2025 Reason for Consultation: Renal failure HISTORY OF PRESENT ILLNESS: This is a 34-year-old female admitted to the ICU, patient presented to the emergency department with neighbors and friends after they observed her acting bizarre running around the neighborhood. They reported she was not herself, she was confused and combative. Patient was intubated in the emergency department for airway protection. Toxicology positive for cocaine, she had a lactic acid of 5.5, hypotensive and started on pressors. I She is currently intubated, sedated, requiring multiple vasopressors to maintain blood pressure Blood cultures are positive Continues on antibiotics. She was noted to have elevated BUN/creatinine Renal function remains elevated Electrolytes are stable. Imaging studies were noted She was seen in the ICU Multiple family members at the bedside, multiple questions were answered Condition is critical and guarded REVIEW OF SYSTEMS: Difficult to obtain given status of the patient who remains intubated mechanically ventilated PAST MEDICAL HISTORY: Diabetes mellitus type 2, hypertension PAST SURGICAL HISTORY: Negative PAST SOCIAL HISTORY: Positive for cocaine use and alcohol use FAMILY HISTORY: Noncontributory PHYSICAL EXAM: General: acutely ill, sedated, intubated, and mechanically ventilated HEENT: head is atraumatic, pupils equal and reactive, ET tube in place Neck: supple, no masses, no lymphadenopathy, no thyromegaly, no JVD Lungs: decreased breath sounds bilaterally, symmetrical chest movement Cardio: regular rate, S1 and S2 normal, no rub or gallop Abdomen: soft, non tender, no distension, no organomegaly Extremities: trace edema bilateral lower extremities, no cyanosis or clubbing Skin: no rashes or suspicious lesions Neuro: sedated MEDICATIONS: [ ] Current Medications Medications (Trade) Dose Ordered Sig/Sandra Route PRN Reason Start Time Stop Time Status Last Admin Dose Admin Acetaminophen (TYLenol 650MG SUPPOSITORY) 650 mg Q6H PRN RC MILD PAIN (1-3) IF NPO 06/15/25 21:30 06/17/25 10:57 DC 06/16/25 07:30 650 MG Acetaminophen (TYLenol 650MG SUPPOSITORY) 650 mg Q6H PRN RC MILD PAIN (1-3) 06/15/25 22:00 06/15/25 22:04 DC Albuterol (DUOneb) 1 UDVIAL [id number] IH 06/16/25 00:00 12/6/25 00:00 06/17/25 11:14 1 UDVIAL Albuterol Sulfate (Proventil 0.083% 2.5mg/3ml) 10 mg ONCE STAT IH 06/17/25 02:11 06/17/25 02:29 DC 06/17/25 02:45 10 MG Calcium Gluconate (Calcium Gluc 1gm Vial) 1 gm ONCE STAT IV 06/17/25 02:11 06/17/25 02:27 DC 06/17/25 02:49 1 GM Daptomycin 500 mg/ Sodium Chloride 50 ml @ 100 mls/hr Q48H IV 06/17/25 14:00 06/27/25 13:59 06/17/25 13:57 100 MLS/HR Dextrose (D50w) 50 ml AD PRN IV HYPOGLYCEMIA PROTOCOL 06/16/25 19:00 07/16/25 18:59 06/16/25 18:41 50 ML Dextrose/Lactated Ringer's 1,000 ml @ 100 mls/hr Q10H IV 06/16/25 20:00 07/16/25 19:59 06/17/25 08:38 100 MLS/HR Epinephrine HCl 10 mg/Sodium Chloride 250 ml @ 0 mls/hr PROTOCOL IV 06/17/25 12:00 07/17/25 11:59 06/17/25 15:05 108 MLS/HR Famotidine (Pepcid 20mg Vial) 20 mg DAILY IV 06/16/25 09:00 07/16/25 08:59 06/17/25 08:38 20 MG Fentanyl Citrate 100 ml @ 0 mls/hr PROTOCOL IV 06/15/25 18:00 06/22/25 17:59 06/17/25 09:44 10 MLS/HR Glucagon (Glucagon 1mg Kit) 1 mg AD PRN IM HYPOGLYCEMIA PROTOCOL 06/16/25 19:00 07/16/25 18:59 Guaifenesin (RobiTUSSin SUGAR-FREE 100 MG/ 5 ML UDCUP) 400 mg Q4H PRN PO cough 06/16/25 00:00 07/16/25 00:00 Heparin Sodium (Porcine) (HEParin 5,000 UNIT VIAL) 5,000 unit Q12H SQ 06/16/25 09:00 06/16/25 13:29 DC 06/16/25 09:29 5,000 UNIT Heparin Sodium/ Dextrose 250 ml @ 0 mls/hr PROTOCOL IV 06/16/25 13:30 06/16/25 14:02 DC Hydromorphone HCl (DiLAUDid 0.5MG INJ) 0.25 mg Q4H PRN IVP SEVERE PAIN (7-10) 06/15/25 22:00 06/20/25 21:59 Insulin Human Regular (humuLIN R 100 UNIT/ML 3ML) 5 unit ONCE STAT IV 06/17/25 02:19 06/17/25 02:29 DC 06/17/25 02:44 5 UNIT Insulin Human Regular (humuLIN R 100 UNIT/ML 3ML) INSULIN SLIDING SCAL... Q6H6 SQ 06/16/25 00:00 07/16/25 00:00 Lactated Ringer's 1,000 ml @ 75 mls/hr [id number] IV 06/15/25 22:00 06/16/25 11:58 DC 06/16/25 10:26 75 MLS/HR Lactated Ringer's 1,000 ml @ 100 mls/hr Q10H IV 06/16/25 13:30 06/16/25 19:53 DC 06/16/25 13:34 100 MLS/HR Lactated Ringer's (Lactated Ringers 1000ml) 1,000 ml ONCE IV 06/16/25 04:30 06/16/25 04:22 DC Linezolid 300 ml @ 150 mls/hr Q12H IV 06/17/25 02:30 06/17/25 11:51 DC 06/17/25 02:45 150 MLS/HR Magnesium Sulfate 50 ml @ 0 mls/hr PROTOCOL PRN IV h 06/15/25 22:00 07/15/25 21:59 Methylprednisolone Sodium Succinate (Solu-medROL 40MG) 50 mg Q6H IVP 06/16/25 12:00 07/16/25 11:59 06/17/25 12:05 50 MG Midazolam HCl 50 ml @ 0 mls/hr PROTOCOL IV 06/15/25 18:00 06/22/25 17:59 06/16/25 07:23 10 MLS/HR Norepinephrine 250 ml @ 0 mls/hr PROTOCOL IV 06/15/25 19:00 06/16/25 06:15 DC 06/16/25 05:04 115.8 MLS/HR Norepinephrine Bitartrate (Norepineph 16 Mg/250ml NS Premix) follow protocol PROTOCOL IV 06/16/25 06:30 06/16/25 23:12 DC Norepinephrine Bitartrate 32 mg/ Sodium Chloride 250 ml @ 0 mls/hr Q0M IV 06/16/25 23:30 07/16/25 23:29 06/17/25 14:06 46 MLS/HR Ondansetron HCl (zoFRAN 4MG INJ) 4 mg Q6H PRN IV NAUSEA/VOMITING 06/15/25 22:00 07/15/25 21:59 Pantoprazole Sodium (PROTonix 40MG INJ) 40 mg DAILY IV 06/16/25 09:00 06/15/25 22:23 DC Pantoprazole Sodium 80 mg/ Sodium Chloride 100 ml @ 10 mls/hr Q10H IV 06/17/25 13:00 07/17/25 12:59 06/17/25 13:32 10 MLS/HR Pharmacy Profile Note (Pharmacy Communication) 1 each ONCE MISC 06/17/25 12:00 06/17/25 12:11 DC Phenylephrine HCl 100 mg/Sodium Chloride 250 ml @ 0 mls/hr PROTOCOL IV 06/16/25 14:00 07/16/25 13:59 06/17/25 14:07 48 MLS/HR Piperacillin Sod/ Tazobactam Sod (Zosyn 3.375gm+NS 50ml) 3.375 gm Q8H IV 06/15/25 22:00 06/17/25 11:51 DC 06/17/25 05:35 3.375 GM Potassium Chloride 100 ml @ 50 mls/hr AD PRN IV POTASSIUM PROTOCOL 06/15/25 22:00 07/15/25 21:59 06/16/25 09:25 50 MLS/HR Propofol 100 ml @ 0 mls/hr PROTOCOL IV 06/15/25 19:00 07/15/25 18:59 Sodium Bicarbonate 150 meq/Dextrose 1,000 ml @ 150 mls/hr Q6H40M IV 06/16/25 04:30 06/16/25 10:22 DC 06/16/25 05:03 150 MLS/HR Sodium Bicarbonate 150 meq/Dextrose 1,000 ml @ 150 mls/hr Q6H40M IVP 06/17/25 02:00 07/16/25 11:59 06/17/25 12:03 150 MLS/HR Sodium Bicarbonate 150 meq/Dextrose 1,150 ml @ 150 mls/hr Q7H40M IVP 06/16/25 12:00 06/17/25 01:55 DC 06/16/25 20:17 150 MLS/HR Sodium Bicarbonate (Sodium Bicarb 50meq 50ml Vial) 50 meq ONCE STAT IV 06/17/25 04:52 06/17/25 04:56 DC 06/17/25 05:03 50 MEQ Sodium Bicarbonate (Sodium Bicarb 50meq 50ml Vial) 200 meq ONCE STAT IV 06/17/25 09:01 06/17/25 09:05 DC 06/17/25 09:45 200 MEQ Thiamine HCl (Vitamin B-1) 100 mg DAILY IVP 06/18/25 09:00 07/18/25 08:59 Vasopressin 20 units/Sodium Chloride 100 ml @ 0 mls/hr PROTOCOL IV 06/16/25 06:00 06/17/25 04:28 DC 06/17/25 02:52 9 MLS/HR Vasopressin 20 units/Sodium Chloride 100 ml @ 0 mls/hr PROTOCOL IV 06/17/25 04:30 07/17/25 04:29 06/17/25 12:04 12 MLS/HR Vital Signs (last 8hr) Date Time Temp Pulse Resp B/P (MAP) Pulse Ox O2 Delivery O2 Flow Rate FiO2 06/17/25 15:04 99 60 06/17/25 14:07 99/06/17/25 14:06 99/25 06/17/25 12:04 100/39 06/17/25 12:00 115 22 100/35 (56) 92 06/17/25 12:00 99.3 06/17/25 12:00 40 06/17/25 12:00 92 Ventilator+ 40 06/17/25 11:59 108 40 06/17/25 11:45 113 23 100/39 (59) 92 06/17/25 11:30 114 19 98/41 (60) 93 102/25 (50) 06/17/25 11:15 113 24 95/43 (60) 94 103/26 (51) 06/17/25 11:14 111 24 06/17/25 11:00 112 23 97/40 (59) 96 104/27 (52) 06/17/25 10:45 112 25 95/44 (61) 93 105/26 (52) 06/17/25 10:38 120 23 92/45 (61) 96 103/26 (51) 06/17/25 10:30 120 23 92/43 (59) 96 103/26 (51) 06/17/25 10:15 113 24 95/43 (60) 94 103/26 (51) 06/17/25 10:00 114 19 98/41 (60) 93 102/25 (50) 06/17/25 09:45 107 26 103/40 (61) 95 115/29 (57) 06/17/25 09:35 107 40 06/17/25 09:30 105 25 101/40 (60) 97 114/29 (57) 06/17/25 09:15 104 23 103/39 (60) 99 141/43 (75) 06/17/25 09:00 104 21 129/41 (70) 99 06/17/25 08:45 108 22 85/47 (60) 97 06/17/25 08:41 100/59 06/17/25 08:30 103 24 101/43 (62) 99 DIAGNOSTICS / RADIOLOGY: [address] [address] [place] [address] IMAGING REPORT Signed PATIENT: MANUELA DAVIS MR#: [id number] : 1990 SEX: F AGE: 34 LOCATION: 2BH ORDER 9 STATUS: ADM IN REPORT#: [id number] SERVICE 0609 REASON: TRANSAMINITIS ORDERING PHYSICIAN: QUINCY DRAPER PROCEDURE: ABDRUQLTD - US ABDOMINAL RUQ\LTD EXAM: US Abdomen, Right Upper Quadrant. CLINICAL HISTORY: Transaminitis. TECHNIQUE: Right upper quadrant sonography performed with image documentation. COMPARISON: None provided. FINDINGS: The study is limited due to intubation, large body habitus, and intestinal air. Liver: The liver is enlarged, measuring 18.5 cm in craniocaudal span. There is diffuse fatty infiltration noted. No focal hepatic lesions identified. Intrahepatic biliary ducts are not dilated. Gallbladder: The gallbladder wall is thickened, measuring 5 mm. No gallstones or pericholecystic fluid are seen. The gallbladder lumen is unremarkable. Biliary Tree: The common bile duct is obscured due to technical limitations. No biliary dilatation is visualized. Pancreas: The pancreas is normal in size and signal intensity. No mass, cyst, or abnormality detected. Kidneys: The right kidney measures 11.3 x 5 x 6.1 cm, normal in size and shape. No focal lesion, hydronephrosis, or renal calculi were seen. Bowel: intestinal air is seen. No evidence of bowel obstruction or mass. The remainder of the bowel loops are unremarkable. IMPRESSION: Hepatomegaly with steatosis. Diffuse gallbladder wall thickening, likely related to liver parenchymal disease. /[place] DICTATED BY: SHAGGY STEARNS Jr., MD DATE: 06/17/25 1016 ELECTRONICALLY SIGNED BY: SHAGGY STEARNS Jr., MD DATE: 06/17/25 1016 PATIENT: MANUELA DAVIS MR#: [id number] : 1990 SEX: F AGE: 34 LOCATION: 2B ORDER 1158 STATUS: ADM IN REPORT#: [id number] SERVICE 1149 REASON: kidney function ORDERING PHYSICIAN: QUINCY SANTOS PAC PROCEDURE: RENAL - US RENAL SONOGRAM EXAM: US Retroperitoneum, Renal. CLINICAL HISTORY: kidney function TECHNIQUE: Real-time ultrasound of the retroperitoneum with image documentation. COMPARISON: None provided. FINDINGS: RIGHT KIDNEY: Normal in size and contour. No renal mass or calculus. No hydronephrosis. LEFT KIDNEY: Normal in size and contour. No renal mass or calculus. No hydronephrosis. BLADDER: The bladder is decompressed by Juarez catheter. MISCELLANEOUS: No other significant abnormality evident. IMPRESSION: No acute abnormality evident. No hydronephrosis. /[place] DICTATED BY: SHAGGY STEARNS Jr., MD DATE: 06/16/251548 ELECTRONICALLY SIGNED BY: SHAGGY STEARNS Jr., MD DATE: 06/16/251548 PATIENT: MANUELA DAVIS MR#: [id number] : 1990 SEX: F AGE: 34 LOCATION: [facility] ORDER 103 STATUS: ADM IN REPORT#: [id number] SERVICE 1035 REASON: cardiomyopathy ORDERING PHYSICIAN: QUINCY SANTOS [facility] PROCEDURE: ECHO CMP - ECHO 2-D COMPLETE APPROVED REPORT EXAM: Two-dimensional and M-mode echocardiogram with Doppler and color Doppler. INDICATION ICD: Cardiomyopathy 2D Dimensions RVDd 3.4 cm LVEF(%) 45.3 (>50%) LVED Vol(simp.) 46.0 mL IVSd 1.0 (0.7-1.1cm) FS(%) 22 % LVES Vol(simp.) 28.0 mL LVDd 3.7 (3.8-5.6cm) LA (2D) 3.1 (1.6-4.0cm) LVEF(%, simp.) 39 % PWd 1.2 (0.7-1.1cm) Ao Root(2D) 3.0 (2.0-3.7cm) LA ESV INDEX (BP) 12.08 mL/m2 IVSs 1.2 cm LVOT diam 2.0 (1.8-2.4cm) LVDs 2.9 (2.5-4.0cm) IVC diam 1.0 cm PWs 1.4 cm Deformation Strain Apical 4 -10.3 % Apical 2 -10.4 % Apical 3 -10.5 % Global Strain -10.4 % M-Mode Dimensions EPSS 0.5 cm LA (MM) 3.1 (1.6-4.0cm) Ao Root(MM) 3.0 (2.0-3.7cm) Aortic Valve AoV Vmax 1.2 m/s Ao Peak GR 6.1 mmHg LVOT Vmax 1.2 m/s AoV VTI 0.2 m Ao Mean GR 3.5 mmHg LVOT VTI 0.14 m FLORINDA (VMAX) 3.02 cm2 FLORINDA (VTI) 2.9 cm2 Mitral Valve MV E Vmax 55.4 cm/s DECEL Time 160 ms MV A Vmax 51.7 cm/s P 1/2 T 42 ms E/A ratio 1.1 MVA (PHT) 5.2 cm2 TDI E/E' Medial 10.9 E/E' Lateral 7.5 Medial E' Peak V 5.09 cm/s Lateral E' Peak V 7.39 cm/s Pulmonary Valve PV Vmax 1.0 m/s PV Mean GR 2.4 mmHg PV Peak GR 4.1 mmHg Tricuspid Valve TR Vmax 0.9 m/s RAP (EST) 8 mmHg RVSP 11.2 mmHg TR Peak GR 3.2 mmHg Left Ventricle The left ventricle is normal size. GLS -10.0% There is normal left ventricular wall thickness. LVEF is 40-45%. Indeterminate diastolic dysfunction. Right Ventricle The right ventricle is normal size. Right ventricular systolic function is mildly reduced. Atria The left atrium size is normal. The right atrium size is normal. Aortic Valve The aortic valve is normal in structure. No aortic regurgitation is present. There is no aortic valvular stenosis. Mitral Valve The mitral valve is normal in structure. There is no mitral valve regurgitation noted. There is no mitral valve stenosis. Tricuspid Valve The tricuspid valve is normal in structure. There is no tricuspid valve regurgitation noted. Pulmonic Valve The pulmonary valve is normal in structure. There is no pulmonic valvular regurgitation. Great Vessels The aortic root is normal in size. The IVC is normal in size and collapses <50% with inspiration. Pericardium There is no pericardial effusion. Other Information Quality : Technically difficult study due to body habitus and pt intubated Rhythm : atrial fibrillation with rapid ventricular response Conclusion LVEF is 40-45%. Indeterminate diastolic dysfunction. DICTATED BY: ERIN LOZA DO DATE: 06/16/25 1107 ELECTRONICALLY SIGNED BY: ERIN LOZA DO DATE: 06/16/25 0413 PATIENT: MANUELA DAVIS MR#: [id number] : 1990 SEX: F AGE: 34 LOCATION: 2BH ORDER STATUS: ADM IN REPORT#: [id number] SERVICE REASON: intubated ORDERING PHYSICIAN: QUINCY SANTOS PAC PROCEDURE: CXR1VW - CHEST 1VW EXAM: CR Chest,2 Views. CLINICAL HISTORY: Intubated COMPARISON: Chest x-ray dated 06/15/2025 FINDINGS: Interval repositioning of the endotracheal tube, with the tip of the endotracheal tube approximately 3.6 cm above the level of the kay. Consistent with optimal position. Nasogastric tube in situ with its tip in the stomach. LUNGS: Mild to moderate pulmonary venous congestion in bilateral lung berumen. PLEURAL SPACES: No pneumothorax. Minimal left pleural effusion. MEDIASTINUM: The cardiomediastinal silhouette appears enlarged. BONES: No acute osseous abnormality. IMPRESSION: Interval repositioning of the endotracheal tube, with the tip of the endotracheal tube in the optimal position. Nasogastric tube in situ with its tip in the stomach. Mild to moderate bilateral pulmonary venous congestion with minimal bilateral pleural effusion. No significant interval change. Enlarged cardiomediastinal silhouette. /[place] DICTATED BY: SHAGGY STEARNS Jr., MD DATE: 06/17/25954 ELECTRONICALLY SIGNED BY: SHAGGY STEARNS Jr., MD DATE: 06/17/25954 PATIENT: MANUELA DAVIS MR#: [id number] : 1990 SEX: F AGE: 34 LOCATION: 2BH ORDER 234 STATUS: ADM IN REPORT#: [id number] SERVICE 34 REASON: left pleural effusion ORDERING PHYSICIAN: DENIS ERNST POWER REGULATOR PROCEDURE: CHEST SCAN - US CHEST WALL SOFT TISSUE EXAM: US Chest Limited, Evaluate for Pleural Effusion. CLINICAL HISTORY: left pleural effusion TECHNIQUE: Real-time ultrasound of the chest to evaluate for pleural effusion. COMPARISON: None provided. FINDINGS: PLEURAL SPACES: No pleural effusion. PERICARDIAL SPACE: No pericardial effusion. IMPRESSION: 1. No pleural or pericardial effusion. /[place] DICTATED BY: STEVE MCDONALD MD DATE: 06/16/252312 ELECTRONICALLY SIGNED BY: STEVE MCDONALD MD DATE: 06/16/252312 PATIENT: MANUELA DAVIS MR#: [id number] : 1990 SEX: F AGE: 34 LOCATION: [facility] ORDER 47 STATUS: REG ER REPORT#: [id number] SERVICE 45 REASON: ams ORDERING PHYSICIAN: BETHANY LIAO MD PROCEDURE: HEAD WO - CT HEAD/BRAIN W/O CONTRAST EXAM: CT Head Without IV contrast. CLINICAL HISTORY: ams TECHNIQUE: Axial computed tomography images of the head/brain without intravenous contrast. COMPARISON: None provided. FINDINGS: BRAIN: No evidence of acute hemorrhage. No mass lesion. No CT evidence for acute territorial infarct. No midline shift or extra-axial collections. VENTRICLES: No hydrocephalus. ORBITS: The orbits are unremarkable. SINUSES AND MASTOIDS: The paranasal sinuses and mastoid air cells are clear. BONES: No fracture. SOFT TISSUES: Unremarkable. IMPRESSION: No acute intracranial abnormality. /[place] DICTATED BY: JENNIFER CATES MD DATE: 06/15/252050 ELECTRONICALLY SIGNED BY: JENNIFER CATES MD DATE: 06/15/252050 PATIENT: MANUELA DAVIS MR#: [id number] : 1990 SEX: F AGE: 34 LOCATION: [facility] ORDER 42 STATUS: REG ER REPORT#: [id number] SERVICE 41 REASON: INTUBATION ORDERING PHYSICIAN: BETHANY LIAO MD PROCEDURE: CXR1VW - CHEST 1VW ADDENDUM REPORT ADDENDUM: Results were shared by telephone at 08:13 PM EST on 06-15-[address] Chelle [email or web address] /[place] EXAM: CR Chest, 2 View. CLINICAL HISTORY: INTUBATION COMPARISON: None provided. FINDINGS: Endotracheal tube terminates 1.4 cm above the kay and may be retracted by 1.0 cm. Enteric tube terminates within the stomach. Multifocal airspace disease throughout the left lung may reflect an infectious and/or inflammatory process. Small left effusion. No pneumothorax. Mild cardiomegaly and mild central pulmonary vascular congestion. IMPRESSION: 1. Endotracheal tube tip 1.4 cm above kay, consider retracting 1.0 cm. 2. Multifocal left lung airspace disease, possibly infectious or inflammatory. 3. Small left pleural effusion. 4. Mild cardiomegaly with mild central pulmonary vascular congestion. /[place] DICTATED BY: SHAGGY STEARNS Jr., MD DATE: 06/15/252014 ELECTRONICALLY SIGNED BY: DATE: EXAM: CR Chest, 2 View. CLINICAL HISTORY: INTUBATION COMPARISON: None provided. FINDINGS: Endotracheal tube terminates 1.4 cm above the kay and may be retracted by 1.0 cm. Enteric tube terminates within the stomach. Multifocal airspace disease throughout the left lung may reflect an infectious and/or inflammatory process. Small left effusion. No pneumothorax. Mild cardiomegaly and mild central pulmonary vascular congestion. IMPRESSION: 1. Endotracheal tube tip 1.4 cm above kay, consider retracting 1.0 cm. 2. Multifocal left lung airspace disease, possibly infectious or inflammatory. 3. Small left pleural effusion. 4. Mild cardiomegaly with mild central pulmonary vascular congestion. /[place] DICTATED BY: SHAGGY STEARNS Jr., MD DATE: 06/15/252005 ELECTRONICALLY SIGNED BY: SHAGGY STEARNS Jr., MD DATE: 06/15/252005 LABORATORY: [ ] Hematology Labs: Test 06/17/25 03:48 06/16/25 03:52 Range/Units White Blood Count 23.4 H 4.8-10.8 K/uL Red Blood Count 3.73 #L 4.00-5.50 MIL/uL Hemoglobin 12.1 12.0-16.0 g/dL Hematocrit 38.0 # 36-48 % Mean Corpuscular Volume 101.9 H 79-99 fL Mean Corpuscular Hemoglobin 32.4 27.0-33.0 pg Mean Corpuscular Hemoglobin Concent 31.8 L 32.0-36.0 g/dL Red Cell Distribution Width 16.1 H 11.0-15.5 % Platelet Count 53 #L 130-400 K/uL Mean Platelet Volume 12.4 H 7.5-10.5 fL Immature Granulocyte % (Auto) 2.3 H 0-1 % Neutrophils (%) (Auto) 91.6 H 40.0-77.0 % Lymphocytes (%) (Auto) 3.2 L 21.0-51.0 % Monocytes (%) (Auto) 2.6 L 3.0-13.0 % Eosinophils (%) (Auto) 0.0 0.0-8.0 % Basophils (%) (Auto) 0.3 0.0-5.0 % Neutrophils # (Auto) 21.4 H 1.8-7.7 K/uL Lymphocytes # (Auto) 0.8 L 1.0-4.8 K/uL Monocytes # (Auto) 0.6 0.1-1.0 K/uL Eosinophils # (Auto) 0.00 0.00-0.70 K/uL Basophils # (Auto) 0.06 0.00-0.20 K/uL Absolute Immature Granulocyte (auto 0.55 0-1 K/uL Nucleated Red Blood Cells 4.1 H 0.0-0.19 % White Cell Morphology Comment See comments Segmented Neutrophils % 91 H 40-70 % Lymphocytes % (Manual) 3 L 22-44 % Monocytes % (Manual) 5 2-9 % Differential Comment MANUAL DIFFERENTIAL Reactive Lymphocytes 1 H 0-0 % Platelet Morphology Comment ADEQUATE Red Blood Cell Morphology ANISO 1+ Chemistry Labs: Test 06/17/25 11:10 06/17/25 06:49 06/17/25 03:48 06/17/25 02:38 Range/Units Ammonia 90 H 11-32 umol/L Whole Blood Glucose 258 #H 70-110 MG/DL Sodium Level 149 H 136-145 mmol/L Potassium Level 4.9 3.5-5.1 mmol/L Chloride Level 99 L 101-111 mmol/L Carbon Dioxide Level 14 L 21-32 mmol/L Blood Urea Nitrogen 33 H 7-18 mg/dL Creatinine 6.8 H 0.5-1.0 mg/dL Glomerular Filtration Rate Calc 8 >90 mL/min Random Glucose 197 #H 70-105 mg/dL Total Calcium 6.4 L 8.5-10.1 mg/dL Phosphorus Level 9.3 #H 2.5-4.9 mg/dL Magnesium Level 2.10 1.80-2.40 mg/dL Total Bilirubin 2.9 #H 0.2-1.0 mg/dL Aspartate Amino Transf (AST/SGOT) 22914 *H 10-37 U/L Alanine Aminotransferase (ALT/SGPT) 32521 *H 12-78 U/L Alkaline Phosphatase 184 H 50-136 U/L Total Protein 4.0 L 6.0-8.3 g/dL Albumin 1.6 L 3.5-5.0 g/dL Ionized Calcium 0.64 *L 1.15-1.33 MMOL/L Test 06/17/25 00:25 06/16/25 18:32 06/16/25 12:48 06/16/25 03:52 Range/Units Troponin I High Sensitivity 1532 *H 4-50 ng/L Bedside Glucose Comment Notified Nurse Bedside Glucose #2 Comment Protocol Initiated Total Creatine Kinase 59171 #*H 21-232 U/L Lactic Acid Level 5.5 H 0.8-2.5 mmol/L B-Type Natriuretic Peptide 50 0-100 pg/mL Serum Test, Qualitative NEGATIVE NEGATIVE Test 06/15/25 22:39 06/15/25 17:49 Range/Units Procalcitonin 1.37 H 0.05-0.5 ng/mL Triglycerides Level 232 H 30-200 mg/dL Cholesterol Level 169 <200 mg/dL LDL Cholesterol 90 0-99 mg/dL HDL Cholesterol 48 35-85 mg/dL Coagulation Labs: Test 06/15/25 17:49 Range/Units Prothrombin Time 10.5 9.6-11.6 SEC Prothromb Time International Ratio 0.99 0.85-1.15 Activated Partial Thromboplast Time 21.8 L 26.3-35.5 SEC ASSESSMENT: Acute renal failure with septic shock and multiorgan dysfunction patient is on multiple pressors Acute systolic heart failure Acute multi-system organ failure Acute metabolic encephalopathy Severe metabolic acidosis Thrombocytopenia Cocaine abuse Hypoglycemia Diabetes type 2, non-insulin dependent PLAN: Labs, diagnostic, radiologic exams reviewed and interpreted by myself and supervising physician. We have reviewed external records in detail Patient continues to require multiple vasopressors to maintain blood pressure Renal replacement therapy remains a high-risk procedure due to patient's underlying hypotension Obtain UA, urine electrolytes, urine creatinine, urine osmolality Start thiamine 100 mg IV q.day Continue with IV pressors Continue mechanical ventilation and sedation Require close monitoring of renal function and electrolytes Order CBC, CMP, acute hepatitis panel and electrolytes in am Continue with antibiotics Renal diabetic diet BiPAP as necessary, for respiratory distress IV pressors as needed Monitor blood pressure adjust medication doses as needed Avoid hypotensive episodes May use Dilaudid 0.5 mg IV every 6 hours as needed for severe pain Monitor blood sugars Strict intake, output, and daily weight should be monitored Please renally adjust medications Avoid nephrotoxic and nonsteroidal drugs Avoid contrast if possible Will continue to monitor renal function, anemia, electrolytes Treatment plan discussed with patient Questions were answered We have discussed with the other team physicians in detail about the care plan We will continue to monitor the patient closely Thank you for allowing us to participate in the care of this patient Total critical care time spent with patient, nursing staff, critical care team over 35 minutes ATTESTATION BY PHYSICIAN I have seen and examined the patient. I reviewed the documentation, medical decision making, and treatment plan as noted by the mid-level provider above. I agree with the findings and plan of care. SANDHYA SABA MD, [facility] Jun 17, 2025 16:27 SANDHYA SABA MD Jun 17, 2025 22:53
--- NOTE | 2025-06-17 16:51 | PN ---
[facility] PROGRESS NOTE Date Patient Seen: Jun 17, 2025 Time of Visit: 16:47 Problem List: Septic shock Rhabdomyolysis Cocaine positive UDS Non-STEMI Interval History: Patient seen in ICU Multiple family members at bedside She remains intubated, mechanically vented, on multiple vasopressors. Physical Examination: GENERAL: [No acute distress.] LUNGS: intubated, mechanically vented. HEART: [Normal rate and rhythm. On multiple vasopressors. VASC: [Peripheral pulses +2 bilaterally.] Laboratory: [ ] Hematology Labs: Test 06/17/25 15:42 06/16/25 03:52 Range/Units White Blood Count 16.5 #H 4.8-10.8 K/uL Red Blood Count 2.01 #L 4.00-5.50 MIL/uL Hemoglobin 6.2 #*L 12.0-16.0 g/dL Hematocrit 20.1 #*L 36-48 % Mean Corpuscular Volume 100.0 H 79-99 fL Mean Corpuscular Hemoglobin 30.8 27.0-33.0 pg Mean Corpuscular Hemoglobin Concent 30.8 L 32.0-36.0 g/dL Red Cell Distribution Width 16.2 H 11.0-15.5 % Platelet Count 14 #L 130-400 K/uL Mean Platelet Volume 13.0 H 7.5-10.5 fL Immature Granulocyte % (Auto) 3.7 H 0-1 % Neutrophils (%) (Auto) 88.6 H 40.0-77.0 % Lymphocytes (%) (Auto) 6.3 L 21.0-51.0 % Monocytes (%) (Auto) 1.3 L 3.0-13.0 % Eosinophils (%) (Auto) 0.0 0.0-8.0 % Basophils (%) (Auto) 0.1 0.0-5.0 % Neutrophils # (Auto) 14.6 H 1.8-7.7 K/uL Lymphocytes # (Auto) 1.0 1.0-4.8 K/uL Monocytes # (Auto) 0.2 0.1-1.0 K/uL Eosinophils # (Auto) 0.00 0.00-0.70 K/uL Basophils # (Auto) 0.02 0.00-0.20 K/uL Absolute Immature Granulocyte (auto 0.61 0-1 K/uL Nucleated Red Blood Cells 2.4 H 0.0-0.19 % Segmented Neutrophils % 91 H 40-70 % Lymphocytes % (Manual) 3 L 22-44 % Monocytes % (Manual) 5 2-9 % Reactive Lymphocytes 1 H 0-0 % Chemistry Labs: Test 06/17/25 15:42 06/17/25 11:10 06/17/25 06:49 06/17/25 03:48 Range/Units Sodium Level 162 *H 136-145 mmol/L Potassium Level 3.8 3.5-5.1 mmol/L Chloride Level 98 L 101-111 mmol/L Carbon Dioxide Level 14 L 21-32 mmol/L Blood Urea Nitrogen 33 H 7-18 mg/dL Creatinine 8.1 *H 0.5-1.0 mg/dL Glomerular Filtration Rate Calc 6 >90 mL/min Random Glucose 207 H 70-105 mg/dL Total Calcium 5.3 *L 8.5-10.1 mg/dL Total Bilirubin 2.7 H 0.2-1.0 mg/dL Direct Bilirubin 1.8 H 0.0-0.3 mg/dL Alkaline Phosphatase 112 # 50-136 U/L Total Protein 2.5 #L 6.0-8.3 g/dL Albumin 1.1 #L 3.5-5.0 g/dL Ammonia 90 H 11-32 umol/L Whole Blood Glucose 258 #H 70-110 MG/DL Phosphorus Level 9.3 #H 2.5-4.9 mg/dL Magnesium Level 2.10 1.80-2.40 mg/dL Test 06/17/25 02:38 06/17/25 00:25 06/16/25 18:32 06/16/25 12:48 Range/Units Ionized Calcium 0.64 *L 1.15-1.33 MMOL/L Troponin I High Sensitivity 1532 *H 4-50 ng/L Bedside Glucose Comment Notified Nurse Bedside Glucose #2 Comment Protocol Initiated Total Creatine Kinase 24801 #*H 21-232 U/L Test 06/16/25 03:52 06/15/25 22:39 06/15/25 17:49 Range/Units Lactic Acid Level 5.5 H 0.8-2.5 mmol/L B-Type Natriuretic Peptide 50 0-100 pg/mL Serum Test, Qualitative NEGATIVE NEGATIVE Procalcitonin 1.37 H 0.05-0.5 ng/mL Triglycerides Level 232 H 30-200 mg/dL Cholesterol Level 169 <200 mg/dL LDL Cholesterol 90 0-99 mg/dL HDL Cholesterol 48 35-85 mg/dL Coagulation Labs: Test 06/15/25 17:49 Range/Units Prothrombin Time 10.5 9.6-11.6 SEC Prothromb Time International Ratio 0.99 0.85-1.15 Activated Partial Thromboplast Time 21.8 L 26.3-35.5 SEC Diagnostics / Radiology: ECHOCARDIOGRAM Conclusion LVEF is 40-45%. Indeterminate diastolic dysfunction. DICTATED BY: ERIN LOZA DO DATE: 06/16/25 1107 Impression and Plan: Septic shock Multiorgan failure (respiratory failure, myocardial ischemia, transaminitis/shock liver, acute renal failure) Bacteremia, gram positive cocci Rhabdomyolysis NSTEMI likely Type II with peak Troponin 1800. Anemia, Hgb lobo 6.2 Thrombocytopenia, severe Lactic acidosis Mild cardiomyopathy (LVEF of 40-45% by Echo 06/16/2025) UDS positive for cocaine Diabetes mellitus type // Patient has elevated troponin, likely secondary to multi organ system failure, septic shock, bacteremia. Continue conservative management from a cardiac perspective She does have a mild cardiomyopathy, likely sepsis induced. Would recommend after clinical recovery, can consider repeat limited echocardiogram with Definity contrast study to evaluate for left ventricular systolic recovery No indication for therapeutic anticoagulation from cardiac standpoint at this time, especially in the setting of severe thrombocytopenia and anemia. She is not a candidate for beta-andres, Saul/Arb/ARNI due to her hypotension and need for vasopressor support No indication for due to renal dysfunction. If there is no source for her Gram-positive cocci bacteremia, we can consider transesophageal echocardiogram to evaluate for NVIE. ERIN LOZA DO Jun 17, 2025 16:51
[2025-06-17 17:13] LABS: IMMATURE GRANULOCYTE ABSOLUTE 0.77 K/uL (0-1); NUCLEATED RED BLOOD CELLS 2.5 % (0.0-0.19); PLATELET COUNT (AUTO) 14 K/uL (130-400); RED BLOOD CELL COUNT(AUTO) 1.79 MIL/uL (4.00-5.50); RED CELL DISTRIBUTION WIDTH 16.1 % (11.0-15.5); WHITE BLOOD COUNT (AUTO) 15.2 K/uL (4.8-10.8)
[2025-06-17 18:02] LABS: INR > 8.00 (0.85-1.15); PHOSPHORUS 16.6 mg/dL (2.5-4.9)
[2025-06-17 18:41] LABS: BAND NEUTROPHILS % (MANUAL) 25 % (0-2); LYMPHOCYTES % (MANUAL) 9 % (22-44); MONOCYTES % (MANUAL) 1 % (2-9); SEGMENTED NEUTROPHILS % 65 % (40-70)
[2025-06-17 18:42] LABS: MAN.DIFF COMMENT-IMPRESSION MANUAL DIFFERENTIAL; PLATELET MORPHOLOGY COMMENT MARKED DECREASE; WBC MORPHOLOGY VACUOLATION 1+
[2025-06-17 18:49] LABS: BAND NEUTROPHILS % (MANUAL) 24 % (0-2); LYMPHOCYTES % (MANUAL) 8 % (22-44); MAN.DIFF COMMENT-IMPRESSION MANUAL DIFFERENTIAL; PLATELET MORPHOLOGY COMMENT MARKED DECREASE; SEGMENTED NEUTROPHILS % 68 % (40-70); WBC MORPHOLOGY VACUOLATION 1+
[2025-06-17 19:11] LABS: ABG BASE EXCESS -12.9 mmol/L (-2.0-3.0); ABG HCO3 12.9 mmol/L (21.0-28.0); ABG OXYGEN SATURATION 94.1 % (94.0-98.0); ABG PCO2 29 mmHg (32-45); ABG PH 7.268 (7.350-7.450); CARBON MONOXIDE 0.5 % (0.5-1.5); PO2, ARTERIAL BG 98.2 mmHg (83.0-108.0); TEMPERATURE, CELSIUS BG 37.0 CELSIUS (35.5-37.0); VENT MODE, BG ACVC (ROOM AIR)
[2025-06-17] MEDS: CALCIUM GLUC 1GM 1 GM in 0.9%NACL 100ML 100 ML IV SCH (19:23)
--- NOTE | 2025-06-17 19:32 | NUR ---
Report gave to Celeste Armas. All questions and concerns addressed.
[2025-06-17 21:53] LABS: ABG BASE EXCESS -11.9 mmol/L (-2.0-3.0); ABG HCO3 13.9 mmol/L (21.0-28.0); ABG OXYGEN SATURATION 92.3 % (94.0-98.0); ABG PCO2 31 mmHg (32-45); ABG PH 7.267 (7.350-7.450); CARBON MONOXIDE 0.3 % (0.5-1.5); DEVICE COMMENT ALINE RN JULIA; PO2, ARTERIAL BG 80.2 mmHg (83.0-108.0); TEMPERATURE, CELSIUS BG 37.0 CELSIUS (35.5-37.0); VENT MODE, BG ACVC (ROOM AIR)
[2025-06-17 21:54] LABS: IMMATURE GRANULOCYTE ABSOLUTE 0.78 K/uL (0-1); NUCLEATED RED BLOOD CELLS 2.1 % (0.0-0.19); PLATELET COUNT (AUTO) 85 K/uL (130-400); RED BLOOD CELL COUNT(AUTO) 2.48 MIL/uL (4.00-5.50); RED CELL DISTRIBUTION WIDTH 16.3 % (11.0-15.5); WHITE BLOOD COUNT (AUTO) 15.4 K/uL (4.8-10.8)
[2025-06-18] VITALS (54 sets, daily range): BP systolic 14–208; BP diastolic 14–181; PULSE 82–169; RESP 20–33; TEMP 96.6–98.8; O2SAT 85–96
[2025-06-18 01:01] LABS: ABG BASE EXCESS -8.5 mmol/L (-2.0-3.0); ABG HCO3 16.3 mmol/L (21.0-28.0); ABG OXYGEN SATURATION 95.4 % (94.0-98.0); ABG PCO2 30 mmHg (32-45); ABG PH 7.350 (7.350-7.450); CARBON MONOXIDE 0.1 % (0.5-1.5); DEVICE COMMENT ALINE RN JULIA; PO2, ARTERIAL BG 100.2 mmHg (83.0-108.0); TEMPERATURE, CELSIUS BG 37.0 CELSIUS (35.5-37.0); VENT MODE, BG ACVC (ROOM AIR)
[2025-06-18] MEDS: ALBUMIN (HUMAN) 25% 100 ML IV ONE (01:31)
--- NOTE | 2025-06-18 02:19 | CONS ---
INFECTIOUS DISEASE CONSULTATION REQUESTING PHYSICIAN: Dr. Velázquez. REASON FOR CONSULTATION: Septic shock, bacteremia and antibiotic management. HISTORY OF PRESENT ILLNESS: A 34-year-old female, morbid obesity, diabetes mellitus, cocaine abuse, who presented to the hospital with altered mental status. The patient was found by neighbors with confusion and wandering around. The patient was subsequently brought to the emergency room. The patient found with respiratory failure, intubated, transferred to the ICU. The patient was found with multiorgan failure including liver failure, renal failure, rhabdomyolysis and hepatic failure. Cocaine is positive in the toxicology study. The patient had a CT of the brain done, which is unremarkable. The patient has former rhabdomyolysis. The patient has been started on antibiotics including Zosyn, vancomycin, linezolid. PAST MEDICAL HISTORY: 1. Diabetes mellitus. 2. Morbid obesity. 3. Cocaine abuse. SURGICAL HISTORY: None. ALLERGIES: No known drug allergies. CURRENT MEDICATIONS: 1. 2. Sodium bicarbonate. 3. Solu-Medrol. 4. IV fluid. 5. Linezolid. SOCIAL HISTORY: Lives with . Uses cocaine. FAMILY HISTORY: Positive for diabetes mellitus. REVIEW OF SYSTEMS: The patient at present intubated, sedated, not able to give any history. PHYSICAL EXAMINATION: GENERAL: Young female, intubated, sedated. VITAL SIGNS: Temperature 97.2, pulse 150, respiratory rate 22, blood pressure 100/59. EYES: No icterus. Pupils are blown and reactive. HENT: Orally intubated . NECK: Supple. No JVD or thyromegaly. LUNGS: Crackles bilaterally. No rhonchi. CARDIOVASCULAR: S1, S2 regular. No murmurs. ABDOMEN: Obese, soft. Bowel sounds distally are present. CENTRAL NERVOUS SYSTEM: unresponsive. . SKIN: No rashes. No itching. LYMPHATIC: No peripheral lymphadenopathy. BACK: No deformity. No pressure ulcer. EXTREMITIES: Edema mottling of the left hand. LABORATORY DATA: Troponin 185, alkaline phosphatase 184, AST 28,114, ALT 10,517, CPK 101,000, bicarbonate 14, sodium 149, potassium 4.9, BUN 33, creatinine 6.8. WBC 23.3, hemoglobin 12.1, platelets 53. Urinalysis negative until currently positive for cocaine. Blood culture growing gram-positive cocci in pairs. RADIOLOGY: CT head unremarkable. Renal sonogram showed no hydronephrosis. Abdominal sonogram shows hepatic steatosis. A 2D echocardiogram showed an EF of 40% to 45%. ASSESSMENT: A 34-year-old female admitted with altered mental status. Current problems include: 1. Septic shock. 2. Gram positive bacteremia. 3. Rhabdomyolysis. 4. Acute renal failure. 5. Elevated liver enzymes. 6. Possible shock liver. 7. Cocaine abuse. 8. Thrombocytopenia. 9. Morbid obesity. 10. Diabetes mellitus . PLAN: 1. Discontinue linezolid due to thrombocytopenia. 2. Stop patient's daptomycin. 3. Continue Zosyn. 4. Continue . 5. Continue vasopressor. 6. Continue . 7. Continue DVT prophylaxis. 8. medication. 9. . 10. The patient will need Neurology evaluation. Thank you for allowing me to participate in the care of this patient. TID: [id number] RECEIPT: [id number]
[2025-06-18 03:36] LABS: ABG BASE EXCESS -10.0 mmol/L (-2.0-3.0); ABG HCO3 14.9 mmol/L (21.0-28.0); ABG OXYGEN SATURATION 95.8 % (94.0-98.0); ABG PCO2 29 mmHg (32-45); ABG PH 7.335 (7.350-7.450); CARBON MONOXIDE 0.2 % (0.5-1.5); DEVICE COMMENT ALINE RN JULIA; PO2, ARTERIAL BG 109.4 mmHg (83.0-108.0); TEMPERATURE, CELSIUS BG 37.0 CELSIUS (35.5-37.0); VENT MODE, BG ACVC (ROOM AIR)
[2025-06-18 04:13] LABS: HEPATITIS A IGM ANTIBODY Non-Reactive (Nonreactive); HEPATITIS B CORE IGM ANTIBODY Non-Reactive (Negative)
[2025-06-18 05:10] LABS: IMMATURE GRANULOCYTE ABSOLUTE 0.87 K/uL (0-1); NUCLEATED RED BLOOD CELLS 1.4 % (0.0-0.19); PLATELET COUNT (AUTO) 46 K/uL (130-400); RED BLOOD CELL COUNT(AUTO) 2.18 MIL/uL (4.00-5.50); RED CELL DISTRIBUTION WIDTH 17.3 % (11.0-15.5); WHITE BLOOD COUNT (AUTO) 13.8 K/uL (4.8-10.8)
[2025-06-18 05:38] LABS: CREATININE 7.9 mg/dL (0.5-1.0); GLOMERULAR FILTR. RATE CALC 6.0 mL/min (>90); GLUCOSE,RANDOM 123.0 mg/dL (70-105); PHOSPHORUS 18.0 mg/dL (2.5-4.9); SODIUM SERUM 154.0 mmol/L (136-145); TOTAL PROTEIN, SERUM 3.3 g/dL (6.0-8.3); UREA NITROGEN, BLOOD 32.0 mg/dL (7-18)
--- NOTE | 2025-06-18 05:38 | NUR ---
summary note- patient very sick and unstable, admitted for AMS, sepsis and multi-organ failure. Vented and sedated at one point sedation had to be turned off @2100 due to hypotension. patient has been on multiple pressors max dose epi, levo, eben, vaso and dobutamine. Family is aware of poor prognosis, code status was discussed and continue to decide full-code, liver shock as well plts low and hgb has been in the lower side see labs, 3 units PRBC given tonight and 3 plts. Albumin was given as well to help with 3rd spacing and hypotension. hypothermia 96.[address] Ventilator tolerated. No gag noted pupil dilated and sluggish possibly fixed. no sedation patient has not moved or been awake. Juarez catheter in place no very poor urine output of less than 30 ml for shift. ABG scheduled Q3H and have replaced bicarb as needed plus bicarb drip running at 150 ml/hr. Tonight abnormal labs have been reported to Ammy CHURCHILL from [facility]. Family is at bedside aware of updates and status. Patient blood pressure have been low with MAPs in the 50s. PT/INR and AST/ALT elevated as well as potassium. orders were obtained and followed. TOSA was called as well. Pt very critical.
[2025-06-18 06:16] LABS: INR > 8.00 (0.85-1.15)
[2025-06-18] MEDS: SODIUM BICARB 50MEQ 50ML VIAL IV ONE (06:29)
[2025-06-18] MEDS: DEXTROSE 50%-WATER 50 ML DISP.SYRIN IV STA (06:30)
[2025-06-18] MEDS ORDERED: ALBUMIN (HUMAN) 25% 50 ML IV SCH (06:30)
[2025-06-18] MEDS: ALBUTEROL 0.083% 2.5 MG/3 ML INH IH STA (06:35)
[2025-06-18] MEDS: CALCIUM GLUC 1GM 1 GM in 0.9%NACL 100ML 100 ML IV STA (06:39)
--- NOTE | 2025-06-18 06:56 | NUR ---
Time of pronounced at this time by Dr. Jones
--- NOTE | 2025-06-18 07:06 | NUR ---
0630- PATIENT STARTED DECLININ MORE ON VITALS RALPH AND HYPOTENSION 40S/20 - SPOKE TO FAMILY AGREED TO DNR AT THIS TIME MOTHER SIGNED DNR. POTASSIUM 6.0 REPORTED - 10 UNITS IV, D50W, AND BICARB WAS GIVEN. ALL DRIPS CONTINUED MAXED OUT. AT 0656 AM PATIENT WENT ASYSTOLE ANSHUL LUNA AT BEDSIDE PRONOUNCED. TOSSnow CALLED SEE TOSA FORM. REPORT GIVEN TO PIERRE LAWTON
--- NOTE | 2025-06-18 07:07 | ERN ---
CODEBLUE/INTUBATION/PROCEDURE DATE: 06/18/25 I was called to the ICU to help pronounce the patient. We will Shown 60 On my arrival patient was on the vent. Patient was hooked up to the monitor. Asystole shown in six leads on the monitor. Patient also had an art line. This was already hooked up. No waveforms the waveforms on art line. Vent was turned off. No spontaneous respirations. No heart sounds on auscultation. No corneal reflex Time of 6:56 a.m. 06/18/2025 KVNG LANDERS MD Jun 18, 2025 07:07
--- NOTE | 2025-06-18 07:38 | PN ---
[facility] PROGRESS NOTE Date of Service: Jun 18, 2025 Time of Service: 07:35 SUBJECTIVE: 06/16 patient has been seen and examined at bedside, case discussed with the RN. Patient admitted to the intensive care unit, the time of my visit she is intubated, mechanical ventilation, on Versed, propofol, vasopressin for blood pressure support, she is getting broad-spectrum IV antibiotics. Blood pressure 109/50, heart rate of 160, patient with temperature 100.2. CBC shows a WBC of 3.2. Toxicology screen positive for cocaine. ABG with pH of 7.27, pCO2 of 32, bicarb of 14.5. Sputum g stain positive cocci in clusters and chains. Chest x- ray shows endotracheal tube tip 1.4 cm above kay, consider retracting, multifocal left lung airspace disease possibly infectious or inflammatory, small left pleural effusion, mild cardiomegaly with mild central pulmonary vascular congestion. No acute intracranial abnormality noted. 06/17 patient is seen and examined at bedside, discussed with the RN, remains admitted to the intensive care unit, intubated, mechanical ventilation. Blood pressure 100/59, heart rate of 107, temperature 97.7, saturating 99%, FiO2 40%. CBC with a hemoglobin 12.1, hematocrit 38.0, WBC 23.4, with a platelet count of 53. CMP shows a sodium 139, potassium 4.9, BUN of 33, creatinine 6.8, carbon dioxide of 14. Blood glucose 258. Liver enzymes with a total bilirubin of 2.9[place] [address] [address], alkaline phosphatase 184. Troponin 1532. ABG done earlier this morning, pH 6.9, pCO2 39, PO2 less than 45, with a bicarbonate of 7.9. Wound culture positive for Gram-positive cocci, said to of two. Identification and susceptibility to follow up. Sputum g stain positive for Gram-positive cocci in chains and clusters. Respiratory culture pending. Abdominal ultrasound showing hepatomegaly with steatosis, diffuse gallbladder wall thickening likely related to liver parenchymal disease. Renal ultrasound no acute abnormality evident, no hydronephrosis. Echocardiogram shows LVEF 40- 45% with a indeterminate diastolic dysfunction. Just ultrasound no pleural or pericardial effusion. The patient will remain admitted to the ICU, remains in tubated on mechanical ventilation, continue blood pressure support with a vasopressin, continue broad-spectrum IV antibiotics, follow results of blood culture and adjust antibiotics accordingly. The patient is started on sodium bicarbonate drip. Continue Levophed as well. Continue to follow critical care input and recommendation. The patient with severe transaminitis, possible shock liver, however we will request acetaminophen and salicylate level. GI consultation requested, we will follow input and recommendation. Acute hepatitis panel requested as well. Prognosis of This patient is guarded. 06/18 discussed with the RN, patient has at 6:56 a.m.. REVIEW OF SYSTEMS CONSTITUTIONAL: Denies fevers, chills, or night sweats. No unintentional weight loss reported. NEUROLOGICAL: Denies headache, amaurosis fugax, motor weakness, sensory deficit, vertigo/spinning sensation, gait abnormalities, or tremors. ENT: No hearing loss, otalgia, otorrhea, rhinitis, rhinorrhea, hoarseness, or sore throat. CARDIOVASCULAR: Denies any exertional angina, dyspnea on exertion, orthopnea, paroxysmal nocturnal dyspnea, palpitations, life-threatening arrhythmias, claudication. PULMONARY: Denies any shortness of breath, cough, phlegm/sputum, hemoptysis, pleuritic chest pain. SLEEP: Denies morning headaches, daytime somnolence or napping. Denies diff iculty falling asleep, staying asleep, waking from sleep. Denies knowledge of snoring. GASTROINTESTINAL: Denies any type of dysphagia to either liquids or solids. Denies nausea, vomiting, pyrosis, early satiety, abdominal pain, diarrhea, constipation, or changes in stool consistency or caliber. Denies coffee-ground emesis, hematemesis, hematochezia, or melanotic stools. GENITOURINARY: Denies frequency, urgency, nocturia, hematuria or incontinence (Storage/Irritative symptoms.) Low urinary stream, straining to void, urinary intermittency or hesitancy, splitting of the voiding stream, terminal dribbling. ENDOCRINOLOGIC: Denies polyuria, polydipsia, polyphagia or heat/cold in tolerances. HEMATOLOGIC: Denies thrombophilia/previous clots, or coagulopathy/bleeding disorders. ONCOLOGIC: Denies personal history of malignancy. DERMATOLOGIC: Denies rashes or pruritus. PSYCHIATRIC: Denies any suicidal or homicidal ideation. Denies hallucinations. PHYSICAL EXAM GENERAL APPEARANCE: The patient is currently intubated, mechanical ventilation. NEUROLOGICAL: Cranial nerves II-XII grossly intact. Motor is 5/5 in bilateral upper and lower extremities proximal to distal. No sensory deficits. HEENT: Face is symmetric. Pupils are equal and reactive. Extraocular movements are intact. NECK: Supple. No JVD. No thyromegaly. No submental, submandibular, pre- /postauricular, occipital or supraclavicular lymphadenopathy. CHEST: Normal chest expansion. No Telemetry. LUNGS: Absence of any rales, rhonchi or any wheezing. CARDIOVASCULAR: Regular. S1 and S2 normal. No appreciable rubs, murmurs or gallops. ABDOMEN: Soft, nontender, and nondistended. There is no rebound, voluntary guarding, or rigidity. : Deferred. No Juarez. EXTREMITIES: Non-edematous and not cyanotic. No clubbing. Good capillary refill. SKIN: No skin breakdown. Vital Signs (last 8hr) Date Time Temp Pulse Resp B/P (MAP) Pulse Ox O2 Delivery O2 Flow Rate FiO2 06/18/25 06:45 14/14 (14) 06/18/25 06:38 82 25 06/18/25 06:30 20 20/15 (17) 81 06/18/25 06:29 98 100 06/18/25 06:15 97 20 55/26 (36) 84 06/18/25 06:08 168 25 46/18 (27) 85 49/26 (34) 06/18/25 06:00 163 27 67/28 (41) 87 06/18/25 05:52 164 31 54/28 (37) 88 69/29 (42) 06/18/25 05:45 164 28 69/28 (42) 88 06/18/25 05:37 165 29 56/24 (35) 88 70/28 (42) 06/18/25 05:30 165 27 70/28 (42) 89 06/18/25 05:22 166 29 60/25 (37) 90 71/29 (43) 06/18/25 05:15 169 26 74/30 (45) 90 06/18/25 05:07 85 30 64/25 (38) 92 73/29 (44) 06/18/25 05:00 85 31 72/29 (43) 91 06/18/25 04:52 86 29 57/30 (39) 93 74/29 (44) 06/18/25 04:45 86 32 73/28 (43) 93 06/18/25 04:37 87 32 53/34 (40) 94 74/29 (44) 06/18/25 04:30 88 33 74/29 (44) 94 06/18/25 04:22 89 33 67/25 (39) 94 74/28 (43) 06/18/25 04:15 90 30 208/181 (190) 99 06/18/25 04:07 90 30 67/29 (42) 96 73/29 (44) 06/18/25 04:00 96 Ventilator+ 60 06/18/25 04:00 91 30 72/28 (43) 97 06/18/25 04:00 97.9 Room Air 06/18/25 03:52 92 32 61/29 (40) 96 74/29 (44) 06/18/25 03:45 92 31 72/29 (43) 96 06/18/25 03:34 98 70 06/18/25 03:30 98.8 94 29 72/28 (43) 97 06/18/25 03:29 73/40 06/18/25 03:27 73/40 06/18/25 03:26 75/30 06/18/25 03:22 95 31 65/28 (40) 96 74/29 (44) 06/18/25 03:15 96 32 72/28 (43) 97 06/18/25 03:07 97 31 72/26 (41) 97 74/29 (44) 06/18/25 03:00 97 32 73/28 (43) 98 06/18/25 02:55 60 06/18/25 02:52 98 32 74/29 (44) 97 77/30 (46) 06/18/25 02:45 99 30 76/29 (45) 97 06/18/25 02:30 100 32 76/29 (45) 97 06/18/25 02:22 101 32 70/32 (45) 97 79/30 (46) 06/18/25 02:15 99 33 79/29 (46) 97 06/18/25 02:07 99 32 68/27 (41) 97 79/30 (46) 06/18/25 02:00 99 33 79/29 (46) 97 06/18/25 01:52 99 31 61/28 (39) 97 79/30 (46) 06/18/25 01:45 99 32 81/30 (47) 97 06/18/25 01:37 99 30 72/28 (43) 97 81/30 (47) 06/18/25 01:30 99 32 81/30 (47) 97 06/18/25 01:22 99 31 72/30 (44) 97 82/31 (48) 06/18/25 01:15 98 31 82/30 (47) 96 06/18/25 01:07 97 32 67/30 (42) 96 82/29 (46) 06/18/25 01:00 97 31 80/29 (46) 96 06/18/25 00:52 97 31 62/29 (40) 98 80/28 (45) 06/18/25 00:45 97 31 81/29 (46) 95 06/18/25 00:37 97.7 97 31 70/29 (43) 95 81/29 (46) 06/18/25 00:30 99 31 81/29 (46) 96 06/18/25 00:22 98 31 75/27 (43) 95 85/30 (48) 06/18/25 00:15 98 31 84/30 (48) 95 06/18/25 00:07 98 70 06/18/25 00:07 98 30 77/31 (46) 95 86/31 (49) 06/18/25 00:00 96.6 Room Air 06/18/25 00:00 94 Ventilator+ 60 06/18/25 00:00 97 31 84/30 (48) 94 06/17/25 23:37 100 32 93/32 (52) 90 87/33 (51) LABS: Laboratory: Test 06/18/25 04:39 06/18/25 03:34 06/17/25 21:48 06/17/25 16:54 Range/Units White Blood Count 13.8 H 4.8-10.8 K/uL Red Blood Count 2.18 L 4.00-5.50 MIL/uL Hemoglobin 6.6 *L 12.0-16.0 g/dL Hematocrit 20.0 *L 36-48 % Mean Corpuscular Volume 91.7 79-99 fL Mean Corpuscular Hemoglobin 30.3 27.0-33.0 pg Mean Corpuscular Hemoglobin Concent 33.0 32.0-36.0 g/dL Red Cell Distribution Width 17.3 H 11.0-15.5 % Platelet Count 46 #L 130-400 K/uL Mean Platelet Volume 11.3 H 7.5-10.5 fL Immature Granulocyte % (Auto) 6.3 H 0-1 % Neutrophils (%) (Auto) 83.5 H 40.0-77.0 % Lymphocytes (%) (Auto) 8.6 L 21.0-51.0 % Monocytes (%) (Auto) 1.2 L 3.0-13.0 % Eosinophils (%) (Auto) 0.0 0.0-8.0 % Basophils (%) (Auto) 0.4 0.0-5.0 % Neutrophils # (Auto) 11.5 H 1.8-7.7 K/uL Lymphocytes # (Auto) 1.2 1.0-4.8 K/uL Monocytes # (Auto) 0.2 0.1-1.0 K/uL Eosinophils # (Auto) 0.00 0.00-0.70 K/uL Basophils # (Auto) 0.05 0.00-0.20 K/uL Absolute Immature Granulocyte (auto 0.87 0-1 K/uL Nucleated Red Blood Cells 1.4 H 0.0-0.19 % Prothrombin Time > 90.0 *H 9.6-11.6 SEC Prothromb Time International Ratio > 8.00 *H 0.85-1.15 Activated Partial Thromboplast Time 63.8 #H 26.3-35.5 SEC Sodium Level 154 H 136-145 mmol/L Potassium Level 6.0 *H 3.5-5.1 mmol/L Chloride Level 89 *L 101-111 mmol/L Carbon Dioxide Level 16 L 21-32 mmol/L Blood Urea Nitrogen 32 H 7-18 mg/dL Creatinine 7.9 H 0.5-1.0 mg/dL Glomerular Filtration Rate Calc 6 >90 mL/min Random Glucose 123 H 70-105 mg/dL Total Calcium 5.2 *L 8.5-10.1 mg/dL Phosphorus Level 18.0 H 2.5-4.9 mg/dL Magnesium Level 2.70 H 1.80-2.40 mg/dL Total Bilirubin 3.5 #H 0.2-1.0 mg/dL Aspartate Amino Transf (AST/SGOT) 98278 *H 10-37 U/L Alanine Aminotransferase (ALT/SGPT) 6007 #*H 12-78 U/L Alkaline Phosphatase 106 50-136 U/L Total Creatine Kinase 72631 #*H 21-232 U/L Total Protein 3.3 #L 6.0-8.3 g/dL Albumin 1.8 #L 3.5-5.0 g/dL Blood Gas Specimen Type Arterial Arterial Blood pH 7.335 L 7.350-7.450 Arterial Blood Partial Pressure CO2 29 L 32-45 mmHg Arterial Blood Partial Pressure O2 109.4 H 83.0-108.0 mmHg Arterial Blood HCO3 14.9 L 21.0-28.0 mmol/L Arterial Blood Oxygen Saturation 95.8 94.0-98.0 % Arterial Blood Base Excess -10.0 L -2.0-3.0 mmol/L Hemoglobin (Blood Gas) 6.5 *L 12.0-16.0 g/dL Sodium (Blood Gas) 151 H 136-145 MMOL/L Bedside Potassium (Blood Gas) 5.2 H 3.4-4.5 MMOL/L Bedside Chloride (Blood Gas) 97 L 98-107 MMOL/L Bedside Glucose (Blood Gas) 122 H 65-95 MG/DL Bedside Ionized Calcium (Blood Gas) < 0.50 L 1.15-1.33 MMOL/L Bedside Lactic Acid (Blood Gas) > 22.00 *H 0.36-0.75 MMOL/L Blood Gas Temperature 37.0 35.5-37.0 CELSIUS Blood Gas Respiration Rate 20.0 min. Blood Gas Vent Mode ACVC ROOM AIR FiO2 70.0 % Blood Gas Tidal Volume 500 ml Blood Gas PEEP 5 cm H2O Blood Gas Specimen Comment DANILO SUERO White Cell Morphology Comment See comments Lactic Acid Level > 30.0 H 0.8-2.5 mmol/L Segmented Neutrophils % 68 40-70 % Band Neutrophils % 24 H 0-2 % Lymphocytes % (Manual) 8 L 22-44 % Differential Comment MANUAL DIFFERENTIAL Platelet Morphology Comment MARKED DECREASE Red Blood Cell Morphology See comments Fibrinogen > 860 *H 180-350 mg/dL Test 06/17/25 15:42 06/17/25 11:10 06/17/25 06:49 06/17/25 05:20 Range/Units Monocytes % (Manual) 1 L 2-9 % Direct Bilirubin 1.8 H 0.0-0.3 mg/dL Ammonia 90 H 11-32 umol/L Salicylates Level < 2.8 L 2.8-20.0 mg/dL Acetaminophen Level 25 10-30 mcg/mL Hepatitis A IgM Antibody Non-Reactive Nonreactive Hepatitis B Surface Antigen. Non-Reactive Nonreactive Hepatitis B Core IgM Antibody Non-Reactive Negative Hepatitis C Antibody Non-Reactive Nonreactive Whole Blood Glucose 258 #H 70-110 MG/DL Urine Random Creatinine 125.97 30-135 mg/dL Urine Random Sodium 55 40-220 mmol/l Urine Random Potassium 69 25-125 mmol/L Urine Random Chloride 52 L 110-250 mmol/L Test 06/17/25 02:38 06/17/25 00:25 06/16/25 18:32 Range/Units Ionized Calcium 0.64 *L 1.15-1.33 MMOL/L Troponin I High Sensitivity 1532 *H 4-50 ng/L Bedside Glucose Comment Notified Nurse Bedside Glucose #2 Comment Protocol Initiated Current Medications Medications (Trade) Dose Ordered Sig/Sandra Route PRN Reason Start Time Stop Time Status Last Admin Dose Admin Acetaminophen (TYLenol 650MG SUPPOSITORY) 650 mg Q6H PRN RC MILD PAIN (1-3) IF NPO 06/15/25 21:30 06/17/25 10:57 DC 06/16/25 07:30 650 MG Acetaminophen (TYLenol 650MG SUPPOSITORY) 650 mg Q6H PRN RC MILD PAIN (1-3) 06/15/25 22:00 06/15/25 22:04 DC Albumin Human 50 ml @ 0 mls/hr AD IV 06/18/25 06:30 06/20/25 06:29 Albuterol (DUOneb) 1 UDVIAL [id number] IH 06/16/25 00:00 07/16/25 00:00 06/17/25 18:52 1 UDVIAL Albuterol Sulfate (Proventil 0.083% 2.5mg/3ml) 10 mg ONCE STAT IH 06/17/25 02:11 06/17/25 02:29 DC 06/17/25 02:45 10 MG Albuterol Sulfate (Proventil 0.083% 2.5mg/3ml) 10 mg ONCE STAT IH 06/18/25 05:58 06/18/25 06:15 DC 06/18/25 06:35 10 MG Calcium Gluconate (Calcium Gluc 1gm Vial) 1 gm ONCE STAT IV 06/17/25 02:11 06/17/25 02:27 DC 06/17/25 02:49 1 GM Calcium Gluconate 1 gm/Sodium Chloride 100 ml @ 0 mls/hr ONCE STAT IV 06/18/25 06:16 06/18/25 06:17 DC 06/18/25 06:39 300 MLS/HR Calcium Gluconate 1 gm/Sodium Chloride 100 ml @ 0 mls/hr PROTOCOL IV 06/17/25 20:00 07/17/25 19:59 06/18/25 02:29 300 MLS/HR Daptomycin 500 mg/ Sodium Chloride 50 ml @ 100 mls/hr Q48H IV 06/17/25 14:00 06/27/25 13:59 06/17/25 13:57 100 MLS/HR Dextrose (D50w) 50 ml AD PRN IV HYPOGLYCEMIA PROTOCOL 06/16/25 19:00 07/16/25 18:59 06/16/25 18:41 50 ML Dextrose (D50w) 50 ml ONCE STAT IV 06/18/25 05:58 06/18/25 06:15 DC 06/18/25 06:30 50 ML Dextrose/Lactated Ringer's 1,000 ml @ 100 mls/hr Q10H IV 06/16/25 20:00 07/16/25 19:59 06/17/25 08:38 100 MLS/HR Dobutamine HCl/ Dextrose 250 ml @ 0 mls/hr AD PRN IV DIRECTED 06/17/25 21:30 07/17/25 21:29 06/17/25 22:14 7.5 MLS/HR Epinephrine HCl 10 mg/Sodium Chloride 250 ml @ 0 mls/hr PROTOCOL IV 06/17/25 12:00 06/18/25 02:41 DC 06/18/25 00:10 127 MLS/HR Epinephrine HCl 20 mg/Sodium Chloride 500 ml @ 0 mls/hr PROTOCOL IV 06/18/25 03:00 07/17/25 11:59 06/18/25 03:25 127 MLS/HR Famotidine (Pepcid 20mg Vial) 20 mg DAILY IV 06/16/25 09:00 07/16/25 08:59 06/17/25 08:38 20 MG Fentanyl Citrate 100 ml @ 0 mls/hr PROTOCOL IV 06/15/25 18:00 06/22/25 17:59 06/17/25 09:44 10 MLS/HR Glucagon (Glucagon 1mg Kit) 1 mg AD PRN IM HYPOGLYCEMIA PROTOCOL 06/16/25 19:00 07/16/25 18:59 Guaifenesin (RobiTUSSin SUGAR-FREE 100 MG/ 5 ML UDCUP) 400 mg Q4H PRN PO cough 06/16/25 00:00 07/16/25 00:00 Heparin Sodium (Porcine) (HEParin 5,000 UNIT VIAL) 5,000 unit Q12H SQ 06/16/25 09:00 06/16/25 13:29 DC 06/16/25 09:29 5,000 UNIT Heparin Sodium/ Dextrose 250 ml @ 0 mls/hr PROTOCOL IV 06/16/25 13:30 06/16/25 14:02 DC Hydromorphone HCl (DiLAUDid 0.5MG INJ) 0.25 mg Q4H PRN IVP SEVERE PAIN (7-10) 06/15/25 22:00 06/20/25 21:59 Insulin Human Regular (humuLIN R 100 UNIT/ML 3ML) 5 unit ONCE STAT IV 06/17/25 02:19 06/17/25 02:29 DC 06/17/25 02:44 5 UNIT Insulin Human Regular (humuLIN R 100 UNIT/ML 3ML) 10 unit ONCE STAT IV 06/18/25 05:58 06/18/25 06:15 DC 06/18/25 06:31 10 UNIT Insulin Human Regular (humuLIN R 100 UNIT/ML 3ML) INSULIN SLIDING SCAL... Q6H6 SQ 06/16/25 00:00 07/16/25 00:00 Lactated Ringer's 1,000 ml @ 75 mls/hr [id number] IV 06/15/25 22:00 06/16/25 11:58 DC 06/16/25 10:26 75 MLS/HR Lactated Ringer's 1,000 ml @ 100 mls/hr Q10H IV 06/16/25 13:30 06/16/25 19:53 DC 06/16/25 13:34 100 MLS/HR Lactated Ringer's (Lactated Ringers 1000ml) 1,000 ml ONCE IV 06/16/25 04:30 06/16/25 04:22 DC Linezolid 300 ml @ 150 mls/hr Q12H IV 06/17/25 02:30 06/17/25 11:51 DC 06/17/25 02:45 150 MLS/HR Magnesium Sulfate 50 ml @ 0 mls/hr PROTOCOL PRN IV h 06/15/25 22:00 07/15/25 21:59 Methylprednisolone Sodium Succinate (Solu-medROL 40MG) 50 mg Q6H IVP 06/16/25 12:00 07/16/25 11:59 06/18/25 06:29 50 MG Midazolam HCl 50 ml @ 0 mls/hr PROTOCOL IV 06/15/25 18:00 06/22/25 17:59 06/16/25 07:23 10 MLS/HR Midodrine (PROAMatine 5 MG TABLET) 5 mg ONCE STAT NG 06/18/25 01:09 06/18/25 01:14 DC 06/18/25 01:31 5 MG Norepinephrine 250 ml @ 0 mls/hr PROTOCOL IV 06/15/25 19:00 06/16/25 06:15 DC 06/16/25 05:04 115.8 MLS/HR Norepinephrine Bitartrate (Norepineph 16 Mg/250ml NS Premix) follow protocol PROTOCOL IV 06/16/25 06:30 06/16/25 23:12 DC Norepinephrine Bitartrate 32 mg/ Sodium Chloride 250 ml @ 0 mls/hr Q0M IV 06/16/25 23:30 07/16/25 23:29 06/18/25 03:29 46 MLS/HR Ondansetron HCl (zoFRAN 4MG INJ) 4 mg Q6H PRN IV NAUSEA/VOMITING 06/15/25 22:00 07/15/25 21:59 Pantoprazole Sodium (PROTonix 40MG INJ) 40 mg DAILY IV 06/16/25 09:00 06/15/25 22:23 DC Pantoprazole Sodium 80 mg/ Sodium Chloride 100 ml @ 10 mls/hr Q10H IV 06/17/25 13:00 07/17/25 12:59 06/17/25 22:40 10 MLS/HR Pharmacy Profile Note (Pharmacy Communication) 1 each ONCE MISC 06/17/25 12:00 06/17/25 12:11 DC Phenylephrine HCl 100 mg/Sodium Chloride 250 ml @ 0 mls/hr PROTOCOL IV 06/16/25 14:00 07/16/25 13:59 06/18/25 03:27 46 MLS/HR Piperacillin Sod/ Tazobactam Sod (Zosyn 3.375gm+NS 50ml) 3.375 gm Q8H IV 06/15/25 22:00 06/17/25 11:51 DC 06/17/25 05:35 3.375 GM Potassium Chloride 100 ml @ 50 mls/hr AD PRN IV POTASSIUM PROTOCOL 06/15/25 22:00 07/15/25 21:59 06/16/25 09:25 50 MLS/HR Propofol 100 ml @ 0 mls/hr PROTOCOL IV 06/15/25 19:00 07/15/25 18:59 Sodium Bicarbonate 150 meq/Dextrose 1,000 ml @ 150 mls/hr Q6H40M IV 06/16/25 04:30 06/16/25 10:22 DC 06/16/25 05:03 150 MLS/HR Sodium Bicarbonate 150 meq/Dextrose 1,000 ml @ 150 mls/hr Q6H40M IVP 06/17/25 02:00 07/16/25 11:59 06/18/25 03:29 150 MLS/HR Sodium Bicarbonate 150 meq/Dextrose 1,150 ml @ 150 mls/hr Q7H40M IVP 06/16/25 12:00 06/17/25 01:55 DC 06/16/25 20:17 150 MLS/HR Sodium Bicarbonate (Sodium Bicarb 50meq 50ml Vial) 50 meq ONCE STAT IV 06/17/25 04:52 06/17/25 04:56 DC 06/17/25 05:03 50 MEQ Sodium Bicarbonate (Sodium Bicarb 50meq 50ml Vial) 200 meq ONCE STAT IV 06/17/25 09:01 06/17/25 09:05 DC 06/17/25 09:45 200 MEQ Thiamine HCl (Vitamin B-1) 100 mg DAILY IVP 06/18/25 09:00 07/18/25 08:59 Vasopressin 20 units/Sodium Chloride 100 ml @ 0 mls/hr PROTOCOL IV 06/16/25 06:00 06/17/25 04:28 DC 06/17/25 02:52 9 MLS/HR Vasopressin 20 units/Sodium Chloride 100 ml @ 0 mls/hr PROTOCOL IV 06/17/25 04:30 07/17/25 04:29 06/18/25 03:26 12.1 MLS/HR DIAGNOSTICS / RADIOLOGY: [ ] ASSESSMENT: Septic shock, POA Pneumonia, POA Leukocytosis, POA Metabolic encephalopathy, POA Uncontrolled Diabetes mellitius type2, POA Acute kidney injury, POA, on 10/01/2023 creatinine 0.9, today it is 1.3 Left pleural effusion Hypertension Cocaine abuse Transaminitis, possible shock liver Patient at 6:56 a.m. TRINH MALIN MD Jun 18, 2025 07:38
[2025-06-18] MEDS ORDERED: LACTULOSE 20 GM/30 ML UDCUP NG ONE (08:00)
--- NOTE | 2025-06-18 08:25 | NUR ---
As per SHAN patient is ruled out due sepsis. May release body to morgue/ home. Addendum: 06/18/25 at 0856 by PIERRE GLOVER JR., RN RN Not a candidate for organ donation
[2025-06-18] MEDS ORDERED: THIAMINE HCL 100 MG/ML 2ML VIAL IVP SCH (09:00)
--- NOTE | 2025-06-18 10:30 | NUR ---
Post mortem care provided along with Deborah Gordon RN
--- NOTE | 2025-06-18 10:53 | NUR ---
Patient taken to [facility] at this time.
[2025-06-18] MEDS ORDERED: COMPOUND IV REFRIGERATED 1 EACH IVSOLN MISC PRN (12:00)
--- NOTE | 2025-06-18 20:47 | PN ---
SUBJECTIVE: The patient was seen client account representative. Called about the patient worsening. This patient is admitted to ICU with acute renal failure and sepsis, ____ mental status changes. The patient has developed respiratory failure. The patient was positive for cocaine. The patient has been intubated, unable to get any other history. The patient has been hypotensive on multiple pressors, which have maxed out. Renal function has been getting worse. Not a candidate for dialysis at this time with severe hypotension on multiple pressors. Condition is critical and guarded. The patient has no other associated findings. Cocaine use reported. PHYSICAL EXAMINATION: GENERAL: Critically ill, lying in bed, intubated and mechanically ventilated. VITAL SIGNS: Blood pressure has been very low to 55/26, pulse 97, respiratory rate 25. HEENT: The patient intubated mechanically ventilated. Head is atraumatic, normocephalic. Pupils are round and sluggishly reactive to light. . NECK: Without masses or bruits. Thyroid is palpable. Neck has no bruits. CHEST: Shows equal thoracic percussion note being resonant in all areas. CARDIAC: Regular rhythm. NEUROLOGIC: Neurologically unchanged. The patient is intubated and mechanically ventilated. BACK: No tenderness or back deformity. LABORATORY DATA: We have reviewed the available labs. Hemoglobin is extremely low to 6.6, hematocrit is 20. The patient has a very high potassium of 6 in the morning. The patient has sodium high up to 154, creatinine up to 7.9, BUN of 32, elevated liver enzymes are present. Cultures have been coming out positive for gram-positive organisms, apparently. IMAGING STUDIES: Old records have been reviewed. Ultrasound reviewed. Chest x-ray reviewed. The patient has hepatomegaly with steatosis but no hydronephrosis. PROBLEMS: * Acute renal failure. * Hyperkalemia. * Acidosis. * Respiratory failure. * Cocaine use. The patient is terminally ill. Seen client account representative, we were called. The patient also has obesity, diabetes, and was a comorbid septic shock with rhabdomyolysis, liver enzymes, shock liver, obesity. PLAN: * Antibiotic continued. * Vasopressors. * Terminally ill patient. DNR is appropriate. * The patient is not likely to tolerate any form of dialysis. Potassium is going up and not likely to survive. The patient is seen client account representative. We have discussed with her team physicians before. We have discussed with the family in detail and antibiotics have been continued. We have reviewed the lab, x-rays, imaging studies personally. We have discussed with the other team physician. All records have been reviewed in detail. Total time spent was more than 50 minutes. TID: [id number] RECEIPT: [id number] [facility]
--- NOTE | 2025-06-19 09:02 | DS ---
Discharge Summary Hospital Course Summary: DATE OF SERVICE 06/18/2025 THE PATIENT INITIALLY ADMITTED TO HOSPITAL JUNE 15, 2025 WITH THE FOLLOWING HISTORY OF PRESENT ILLNESS: Patient is a 34-year-old female admitted to the ICU, patient presented to the emergency department with neighbors and friends after they observed her acting bizarre running around the neighborhood. They reported she was not herself, she was confused and combative. Patient was intubated in the emergency department for airway protection. Toxicology positive for cocaine, she had a lactic acid of 5.5, hypotensive and started on pressors. I have seen and examined the patient in the ICU. She is currently intubated, sedated, she is on vasopressin and Levophed. Her last ABG revealed her to be acidotic in his currently on a bicarb drip. We are pending a repeat ABG. Chest x-ray reveals vascular congestion, pending an echocardiogram. Pending additional details when family are available. Admitted under the hospitalist service, critical Care consulted for ICU medical management. HOSPITAL COURSE 06/16 patient has been seen and examined at bedside, case discussed with the RN. Patient admitted to the intensive care unit, the time of my visit she is intubated, mechanical ventilation, on Versed, propofol, vasopressin for blood pressure support, she is getting broad-spectrum IV antibiotics. Blood pressure 109/50, heart rate of 160, patient with temperature 100.2. CBC shows a WBC of 3.2. Toxicology screen positive for cocaine. ABG with pH of 7.27, pCO2 of 32, bicarb of 14.5. Sputum g stain positive cocci in clusters and chains. Chest x- ray shows endotracheal tube tip 1.4 cm above kay, consider retracting, multifocal left lung airspace disease possibly infectious or inflammatory, small left pleural effusion, mild cardiomegaly with mild central pulmonary vascular congestion. No acute intracranial abnormality noted. 06/17 patient is seen and examined at bedside, discussed with the RN, remains admitted to the intensive care unit, intubated, mechanical ventilation. Blood pressure 100/59, heart rate of 107, temperature 97.7, saturating 99%, FiO2 40%. CBC with a hemoglobin 12.1, hematocrit 38.0, WBC 23.4, with a platelet count of 53. CMP shows a sodium 139, potassium 4.9, BUN of 33, creatinine 6.8, carbon dioxide of 14. Blood glucose 258. Liver enzymes with a total bilirubin of 2.9[place] [address], [place] [address], alkaline phosphatase 184. Troponin 1532. ABG done earlier this morning, pH 6.9, pCO2 39, PO2 less than 45, with a bicarbonate of 7.9. Wound culture positive for Gram-positive cocci, said to of two. Identification and susceptibility to follow up. Sputum g stain positive for Gram-positive cocci in chains and clusters. Respiratory culture pending. Abdominal ultrasound showing hepatomegaly with steatosis, diffuse gallbladder wall thickening likely related to liver parenchymal disease. Renal ultrasound no acute abnormality evident, no hydronephrosis. Echocardiogram shows LVEF 40- 45% with a indeterminate diastolic dysfunction. Just ultrasound no pleural or pericardial effusion. The patient will remain admitted to the ICU, remains intubated on mechanical ventilation, continue blood pressure support with a vasopressin, continue broad-spectrum IV antibiotics, follow results of blood culture and adjust antibiotics accordingly. The patient is started on sodium bicarbonate drip. Continue Levophed as well. Continue to follow critical care input and recommendation. The patient with severe transaminitis, possible shock liver, however we will request acetaminophen and salicylate level. GI consul tation requested, we will follow input and recommendation. Acute hepatitis panel requested as well. Prognosis of This patient is guarded. 06/18 discussed with the RN, patient has at 6:56 a.m.. Director Of Labor And Delivery(s): CRITICAL CARE, INFECTIOUS DISEASE, CARDIOLOGY Assessment/Plan: FINAL DIAGNOSIS Septic shock, POA Pneumonia, POA Leukocytosis, POA Metabolic encephalopathy, POA Uncontrolled Diabetes mellitius type2, POA Acute kidney injury, POA, on 10/01/2023 creatinine 0.9, today it is 1.3 Left pleural effusion Hypertension Cocaine abuse Transaminitis, possible shock liver Patient at 6:56 a.m. Home Medications: Discontinued Scripts Metoclopramide HCl (Reglan) 10 Mg Tablet, 10 MG PO TIDP, #20 TAB 0 Refills Prov:JADON ALLEN MD 11/04/21 Ondansetron (Ondansetron Odt) 4 Mg Tab.rapdis, 4 MG PO Q6HPRN, #20 TAB 0 Refills Prov:JADON ALLEN MD 11/04/21 Pantoprazole Sodium (Protonix) 40 Mg Tablet.dr, 40 MG PO DAILY, #10 TAB 0 Refills Prov:JADON ALLEN MD 11/04/21 Time spent arranging discharge: 31-60 minutes TRINH MALIN MD Jun 19, 2025 09:02
--- NOTE | 2025-06-19 10:27 | HMCIMG ---
EXAM: CR Chest, 1 View. CLINICAL HISTORY: pp COMPARISON: Radiograph dated June 16, 2025 Findings: AP view of the chest is submitted. Endotracheal tube terminates 3.7 cm above the kay. Enteric tube projects below the diaphragm, tip excluded from the [id number]. Bilateral perihilar and bibasilar airspace disease slightly increased on the prior examination, presumed to reflect pulmonary edema. Small bilateral effusions. No pneumothorax. Heart size is stable. Increased pulmonary vascular congestion. IMPRESSION: 1. Increased bilateral perihilar and bibasilar airspace disease, likely pulmonary edema. 2. Small bilateral pleural effusions. 3. Increased pulmonary vascular congestion. 4. Endotracheal tube 3.7 cm above kay. /[place]
== END 2025-06-18 11:56 | DRG 871 ==
LOC: EDH 17:34 → EDHIP 19:44 → 2BH 22:23
PROVIDERS: ADMIT Internal Medicine; ATTEND Internal Medicine
PROC: 0BH17EZ Insertion of Endotracheal Airway into Trachea, Via Natural or Artificial Opening (ICD-10-PCS; 2025-06-15)
PROC: 5A1945Z Respiratory Ventilation, 24-96 Consecutive Hours (ICD-10-PCS; 2025-06-15)
PROC: B54NZZA Ultrasonography of Left Upper Extremity Veins, Guidance (ICD-10-PCS; 2025-06-17)
PROC: 30233K1 Transfusion of Nonautologous Frozen Plasma into Peripheral Vein, Percutaneous Approach (ICD-10-PCS; 2025-06-17)
PROC: 30233R1 Transfusion of Nonautologous Platelets into Peripheral Vein, Percutaneous Approach (ICD-10-PCS; 2025-06-17)
PROC: 03H633Z Insertion of Infusion Device into Left Axillary Artery, Percutaneous Approach (ICD-10-PCS; 2025-06-17)
PROC: 5A1935Z Respiratory Ventilation, Less than 24 Consecutive Hours (ICD-10-PCS; principal; 2025-06-18)
PROC: 30233N1 Transfusion of Nonautologous Red Blood Cells into Peripheral Vein, Percutaneous Approach (ICD-10-PCS; 2025-06-18)
DX: A41.89 Other specified sepsis (principal); G93.41 Metabolic encephalopathy; J18.9 Pneumonia, unspecified organism; R65.21 Severe sepsis with septic shock; J96.01 Acute respiratory failure with hypoxia; I50.21 Acute systolic (congestive) heart failure; K72.00 Acute and subacute hepatic failure without coma; R57.0 Cardiogenic shock; E87.21 Acute metabolic acidosis; M62.82 Rhabdomyolysis; I11.0 Hypertensive heart disease with heart failure; N17.9 Acute kidney failure, unspecified; D69.6 Thrombocytopenia, unspecified; E66.01 Morbid (severe) obesity due to excess calories; F14.10 Cocaine abuse, uncomplicated; I42.9 Cardiomyopathy, unspecified; Z68.43 Body mass index [BMI] 50.0-59.9, adult; E87.5 Hyperkalemia; F17.210 Nicotine dependence, cigarettes, uncomplicated; Z79.84 Long term (current) use of oral hypoglycemic drugs; Z83.3 Family history of diabetes mellitus; Z91.199 Patient's noncompliance with other medical treatment and regimen due to unspecified reason; Z79.899 Other long term (current) drug therapy
CPT/HCPCS: 31500; 36415; 36430; 36600; 36620; 70450; 71045; 76604; 76705; 76770; 80048; 80051; 80053; 80061; 80074; 80076; 80305; 81003; 82140; 82330; 82435; 82550; 82570; 82803; 82947; 82948; 83605; 83735; 83880; 83935; 84100; 84132; 84145; 84156; 84166; 84295; 84300; 84484; 84703; 85018; 85025; 85384; 85610; 85730; 86850; 86900; 86901; 86923; 86927; 87040; 87046; 87071; 87086; 87186; 87205; 93005; 93306; 93356; 94002; 94003; 94640; 94664; 99285; G0378; G0481; J0169; J0612; J0878; J1250; J1644; J1815; J2020; J2250; J2371; J2470; J2543; J2704; J2919; J3010; J3480; J3490; J7040; J7050; J7070; P9016; P9017; P9034; P9047; A9900; J1308